=== PATIENT | male | born 1955 | race Caucasian/White ===

== ENCOUNTER 2018-06-16 15:30 | Outpatient (RCR) | payer OTHER, SELFPAY ==
--- NOTE | 2018-05-19 07:56 | AT_ITS ---
05/19/18 SUBJECTIVE: Meir states that he is encourage to get stronger with use of aquatics, he is not complaining of any pain increase since his evaluation. OBJECTIVE: ATx2- See aquatic therapy flow sheet. Pt received skilled cueing for aquatic intervention demanding both upper and LE strengthening efforts and intrinsic core stabilization. He is cued throughout for proper glutes, TrA and lower trap activation throughout to encourage proper movement patterns as well as for intrinsic stability. He exits the pool feeling fatigued due to muscle use. Total Time: 60 minutes Direct Time: 30 minutes Otherwise doing warm up and cool down activities with minimal supervision.
--- NOTE | 2018-06-02 10:11 | AT_ITS ---
06/02/18 ATx1 See flow sheet, skilled cueing for proper intrinsic core activation while utilizing upper and LE dynamic movements for general strengthening as well as to challenge intrinsic core stability ending with deep water decompression activities for pain relief. Total Time 45 minutes Direct 50 minutes Able to perform the majority of the program with minimal supervision otherwise able to complete tasks as directed with minimal supervision. Primarily requires skilled cueing for initiation of activity as well as intrinsic activation.
--- NOTE | 2018-06-09 08:51 | PTTR_ITS ---
DATE: 06/09/18 SUBJECTIVE: Arturo reports that he was pretty sore after last aquatic therapy session. OBJECTIVE: * [X] Aquatic Therapy - (50266 x1): Patient completed a therapeutic exercise program in an aquatic setting for core stabilization and general strengthening with decompression for pain relief, as per flow sheet. Patient tolerated a slight progression in his program today, modifications made to reps are noted on flow sheet. Patient required cuing for core activation and appropriate posture throughout session. Patient ends with deep water biking and traction. Direct treatment time: 20 minutes Total treatment time: 40 minutes
--- NOTE | 2018-06-16 10:46 | PTDS_ITS ---
Date: 06/16/18 Referring: Dr. Stahl- [facility] Rheumatology Diagnosis: RA PT dx: Multiple arthralgias due to RA Tx Dates: 05/11/18- 06/16/18 Subjective: History of Present Illness: Meir states that he has been feeling really good. He has had multiple changes including addition of aquatic therapy, starting lyrica and having his spinal stimulator recently adjusted. He states that the combination of these seem to be controlling his pain quite well and he is feeling positive at where he is at with his program. He is comfortable with his aquatic program and would like to transition into an aquatic management for the long-term. He is going to get a pool membership and hopes to begin this next week. Objective: Posture: Pt continues to demonstrate slightly stooped posturing with slight trunk flexion (B) genu varus. Gait: Non antalgic non ataxic with no assistive device. ROM: Hip motion allows 110* flexion on the (R) limited by ostomy bag, 120* (L) . Hamstring allows 60* (B) and knee motion is grossly WNL. Treatment: Todays session consisted of review of pt's HEP and he was provided with handouts for (I) completion of his aquatic exercise program and demonstrates an understanding of these. Treatment Time: 15 minutes Assessment: Pt is a 63 year old male who has been participating in PT intervention for management of multiple arthralgias related to RA. He has completed an aquatic therapy program and is now ready to transition into a fully (I) management of chronic pain. Pt is comfortable transitioning to the (I ) program and is appropriate to D/C from PT services. ST. 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
== END 2018-06-17 23:59 | disposition home or self-care (01) ==
LOC: PT 15:30
PROVIDERS: PCP Nurse Practitioner Family; Referring Provider Internal Medicine Rheumatology; Visit Provider Internal Medicine Rheumatology
DX: M79.1 Myalgia (principal); M06.9 Rheumatoid arthritis, unspecified
CPT/HCPCS: 97113; 97530

== ENCOUNTER 2019-01-26 01:00 | Outpatient (CLI) | payer OTHER, SELFPAY ==
[2019-01-26 09:54] LABS: Abs Immature Grans 0.01 k/cumm (0.0-0.09); Absolute Basophil Count 0.04 k/cumm (0.0-0.2); Absolute Eosinophil Count 0.19 k/cumm (0.0-0.7); Absolute Lymphocyte Count 2.33 k/cumm (1.2-3.4); Absolute Monocyte Count 0.76 k/cumm (0.11-0.7); Basophils % 0.6; Eosinophils % 2.7; HGB 14.4 g/dL (13.5-17.5); Immature Grans % 0.1; Lymphocytes % 32.7; Mean Corp. HGB Concentration 34.3 g/dL (32.0-36.0); Mean Corpuscular Hemoglobin 34.2 pg (27.0-33.0); Mean Corpuscular Volume 99.8 fL (80-95); Mean Platelet Volume 8.8 fL (8.0-11.0); Monocytes % 10.7; Neutrophils % 53.2; Platelet Count 331 x1000/uL (130-400); RBC 4.21 m/cumm (4.50-6.00); RBC Distribution Width 12.5 % (11.8-14.1); White Blood Cell Count 7.13 k/cumm (4.4-10.8)
[2019-01-26 10:55] LABS: ALT 29 U/L (12-78); AST 18 U/L (15-37); Albumin 4.2 g/dL (3.4-5.0); Alkaline Phosphatase 74 U/L (46-116); Anion Gap 11.9 mmol/L (3-11); BUN 21 mg/dL (7-18); Bilirubin, Total 0.4 mg/dL (0.2-1.0); CO2 24.1 mmol/L (21.0-32.0); CREATININE 0.84 mg/dL (0.70-1.30); Calcium 8.9 mg/dL (8.5-10.1); Chloride 103 mmol/L (98-107); Glucose 104 mg/dL (70-100); Potassium 4.1 mmol/L (3.5-5.1); Sodium 139 mmol/L (136-145)
[2019-01-26 11:11] LABS: Vitamin B12 290 pg/mL (193-986)
[2019-01-26 11:15] LABS: Folate > 20.0 ng/mL (8.6-20.0)
[2019-01-26 11:21] LABS: Vitamin D 25 Total 10.3 ng/ml (30-100)
[2019-01-27 11:23] LABS: Hepatitis B Surface Ag Negative (NEGAT)
[2019-01-27 11:48] LABS: HBs Antibody, Quant <3.1 mIU/mL; Hep B Core Antibody Negative (NEGAT); Hepatitis B Surface Ab Negative
[2019-01-30 13:35] LABS: TB Interpretation Negative (NEGAT)
== END 2019-01-26 01:20 ==
PROVIDERS: PCP Nurse Practitioner Family; Visit Provider Internal Medicine Rheumatology
DX: M19.90 Unspecified osteoarthritis, unspecified site (principal); Z79.899 Other long term (current) drug therapy; Z11.59 Encounter for screening for other viral diseases; M06.9 Rheumatoid arthritis, unspecified; D75.89 Other specified diseases of blood and blood-forming organs
CPT/HCPCS: 36415; 80053; 82306; 86704; 86706; 87340; 82607; 82746; 85025; 86480

== ENCOUNTER 2019-02-20 14:35 | Outpatient (REF) | payer OTHER, SELFPAY ==
[2019-02-20 15:56] LABS: Bilirubin Negative (Negative); Blood Negative (Negative); Clarity Clear; Glucose Negative (Negative); Ketones Negative (Negative); Leukocyte Esterase Negative (Negative); Nitrite Negative (Negative); Specific Gravity 1.025 (1.005-1.025); Urobilinogen 0.2 EU/dL (Up TO 0.2); pH 5.5 (5-8)
== END 2019-02-20 14:55 ==
LOC: LBN 14:35
PROVIDERS: PCP Nurse Practitioner Family; Visit Provider Nurse Practitioner Family
DX: I10 Essential (primary) hypertension (principal)
CPT/HCPCS: 81003

== ENCOUNTER 2019-03-08 00:39 | Outpatient (CLI) | payer OTHER, SELFPAY ==
--- NOTE | 2019-03-08 09:30 | MERGEMPI_ITS ---
*[facility]* *[facility]* [address] [place] [address] Myocardial Perfusion Imaging - SPECT Regadenoson Date of study: 03/08/2019 *PATIENT PRESENTATION* Height: 168.9cm (66.5in) Blood Pressure: Weight: 75kg (165lb) BSA: 1.89m^2 Referring physician: Luke Singh Ordering physician: Nabila Rodriguez Impressions: No reversible ischemia. Summary: 1. Myocardial perfusion imaging: The left ventricle is mildly dilated. There is a small sized, moderately intense, fixed defect involving the apical wall(s). This suggests small myocardial infarction vs. imaging artifact. 2. The calculated left ventricular ejection fraction after stress: 47%, visually 50-55%. LV global systolic function is low normal. No left ventricular regional motion abnormality. 3. Stress ECG conclusions: The stress ECG is indeterminate due to baseline IVCD/ atypical left bundle branch block. 4. Stress: Stress-induced atypical chest pain. Indication: I44.4. History: REASON FOR TESTING: PATIENT HAVING STRESS TEST TODAY FOR FURTHER RISK STRATIFICATION. ON 02/20/19 EKG SHOWED POSSIBLE LEFT ANTERIOR FASCICULAR BLOCK. OF NOTE NO PREVIOUS EKG AVAILABLE FOR COMPARISON. PATIENT DENIES ANY CARDIAC SIGNS OR SYMPTOMS WITH ACTIVITY AND REST. PATIENT DENIES CHEST PAIN UPON ARRIVAL FOR TESTING TODAY. SIGNIFICANT PAST MEDICAL HISTORY: CHRONIC LOW BACK PAIN WITH RIGHT SIDED SCIATICA. SMOKING STATUS: QUIT 1974. SMOKED FOR 4 YEARS. 1/2 PPD. EXERCISE ROUTINE: PATIENT WALKS 5 MILES PER DAY ON MOST DAYS. Risk factors: Hypertension. Cholesterol: 167mg/dl. HDL: 75mg/dl. LDL: 71mg/dl. Triglycerides: 71mg/dl. ALLERGIES: MINOCYCLINE, KETAMINE, DILTIAZEM, FLUOXETINE, PENICILLIN, TETRACYCLINE, ASPIRIN, MORPHINE. MEDICATIONS: TWO LIDOCAINE 5% TOPICAL PATCHES DAILY, LISINOPRIL 10 MG DAILY, METHOTREXATE SODIUM 25 MG WEEKLY (WEDNESDAYS), MULTIVITAMIN DAILY, PANTOPRAZOLE 40 MG DAILY, TAMSULOSIN 0.4 MG DAILY, TRAMADOL 50 MG PRN, XELJANZ XR 11 MG DAILY, ACETAMINOPHEN 1000 MG PRN, HUMIRA 40 MG SC EVERY OTHER WEEK, CALCIUM CARBONATE 500 MG DAILY, VITAMIN D 2000 UNITS DAILY, VITAMIN B 12 100 MCG IM INJECTION MONTHLY, VOLTAREN 1% TOPICAL GEL PRN, LOMOTIL 10 MG AM--5 MG PM--5MG HS, FOLIC ACID 1 MG DAILY. Imaging Technique: Protocol: Regadenoson. Acquisition: Gated SPECT; 1 day - rest/stress. The patient was imaged in the supine position. Attenuation correction used. Isotope administration: - Rest. Tc[99m]-sestamibi. Dose: 10.5mCi. Injection time: 09:45 AM. Injection to stress time: 00:45. - Stress. Tc[99m]-sestamibi. Dose: 33mCi. Injection time: 01:10 PM. 1-2 min before end of exercise Baseline ECG: SINUS BRADYCARDIA. HR 51 BPM. LBBB. Stress protocol: +--------+--+ + + !Stage !HR!BP (mmHg) !Comments ! +--------+--+ + + !Baseline!51!120/58 (79)! ! +--------+--+ + + !1 min !52!122/64 (83)!Inject Regadenoson.! +--------+--+ + + !3 min !62!100/48 (65)! ! +--------+--+ + + !6 min !57!100/52 (68)! ! +--------+--+ + + * Stress results: LEXISCAN STRESS TEST ENDED IN 6 MINUTES 50 SECONDS. NORMAL HEART RATE AND BLOOD PRESSURE RESPONSE TO LEXISCAN INJECTION. NO ECTOPY. CHEST HEAVYNESS 4/10 AT 1 MINUTE POST LEXISCAN INJECTION. CHEST HEAVYNESS 1/10 AT 3 MINUTE POST LEXISCAN INJECTION. CHEST HEAVYNESS 0/10 AT 6 MINUTE POST LEXISCAN INJECTION. NO SIGNIFICANT ST SEGMENT CHANGES. The rate-pressure product for the peak heart rate and blood pressure was 6344mm Hg/min. Stress-induced atypical chest pain. Stress ECG: The stress ECG is indeterminate due to baseline IVCD/ atypical left bundle branch block. Myocardial perfusion: Imaging information: gated. The left ventricle is mildly dilated. There is a small sized, moderately intense, fixed defect involving the apical wall(s). This suggests small myocardial infarction vs. imaging artifact. Ventricular Function (Wall Motion): The calculated left ventricular ejection fraction after stress: 47%, visually 50-55%. LV global systolic function is low normal. No left ventricular regional motion abnormality. Study data: Luke Singh MD supervised and was readily available during the procedure. This study was interpreted by [facility]. Study status: Routine. Consent: The risks, benefits, and alternatives to the procedure were explained to the patient and informed consent was obtained. Procedure: Initial setup. A baseline ECG was recorded. Surface ECG leads and manual cuff blood pressure measurements were monitored. Heart sounds: Normal. Lung sounds: Normal. Regadenoson stress test. Stress testing was performed, with regadenoson by intravenous bolus, for a total dose of 0.4mgover 10.00sec, followed by a 5ml saline flush. The infusion was terminated due to per protocol. Study completion: All catheters inserted during the procedure were removed. The patient tolerated the procedure well and was discharged from the lab. Discharge: The patient left the laboratory in stable condition. Birthdate: Patient birthdate: 1955. Sex: Gender: male. Study date: Study date: 03/08/2019. Study time: 00:01 AM. Signature Documentation: - The imaging portion of this study was interpreted by [employer] Install[employer] Technician Luke Singh MD. - The Stress ECG portion of this study was interpreted by Luke Singh MD. Electronically signed by Luke Singh 03/08/2019 17:05
[2019-03-08] MEDS: Regadenoson 0.4 MG/5 ML SYR IVP (12:30)
== END 2019-03-08 00:59 ==
PROVIDERS: PCP Nurse Practitioner Family; Visit Provider Nurse Practitioner Family
DX: I44.4 Left anterior fascicular block (principal); I10 Essential (primary) hypertension; Z87.891 Personal history of nicotine dependence
CPT/HCPCS: 78452; 93017; J2785

== ENCOUNTER 2019-05-15 09:36 | Outpatient (CLI) | payer MEDICARE, OTHER, SELFPAY ==
[2019-05-15 11:59] LABS: Anion Gap 12.2 mmol/L (3-11); BUN 19 mg/dL (7-18); CO2 21.8 mmol/L (21.0-32.0); CREATININE 0.83 mg/dL (0.70-1.30); Calcium 8.8 mg/dL (8.5-10.1); Calculated LDL 45 mg/dL; Chloride 101 mmol/L (98-107); Cholesterol 160 mg/dL (50-200); Glucose 92 mg/dL (70-100); HDL Cholesterol 100 mg/dL (40-60); Potassium 4.3 mmol/L (3.5-5.1); Sodium 135 mmol/L (136-145); TSH (W/Ref FT4) 2.52 uIU/mL (0.36-3.74); Triglyceride 78 mg/dL (30-150)
== END 2019-05-15 09:56 ==
PROVIDERS: PCP Nurse Practitioner Family; Visit Provider Nurse Practitioner Family
DX: I10 Essential (primary) hypertension (principal); E78.5 Hyperlipidemia, unspecified
CPT/HCPCS: 36415; 80048; 80061; 83721; 84443

== ENCOUNTER 2019-08-04 09:16 | Outpatient (REF) | payer MEDICARE, OTHER, SELFPAY ==
[2019-08-09 13:09] LABS: O-desmethyltramadol 320 ng/mL (Cutoff:25); Tramadol 169 ng/mL (Cutoff:25)
== END 2019-08-04 09:36 ==
LOC: LBN 09:16
PROVIDERS: PCP Nurse Practitioner Family; Visit Provider Nurse Practitioner Family
DX: Z51.81 Encounter for therapeutic drug level monitoring (principal); G89.29 Other chronic pain
CPT/HCPCS: 80373

== ENCOUNTER 2019-10-23 09:14 | Outpatient (CLI) | payer MEDICARE, OTHER, SELFPAY ==
[2019-10-23 09:46] LABS: Abs Immature Grans 0.03 k/cumm (0.0-0.09); Absolute Basophil Count 0.04 k/cumm (0.0-0.2); Absolute Eosinophil Count 0.15 k/cumm (0.0-0.7); Absolute Lymphocyte Count 2.41 k/cumm (1.2-3.4); Basophils % 0.3; Eosinophils % 1.1; HCT 41.9 % (40.0-50.0); HGB 14.4 g/dL (13.5-17.5); Immature Grans % 0.2 %; Lymphocytes % 18.1; Mean Corp. HGB Concentration 34.4 g/dL (32.0-36.0); Mean Corpuscular Hemoglobin 34.1 pg (27.0-33.0); Mean Corpuscular Volume 99.3 fL (80-95); Mean Platelet Volume 8.7 fL (8.0-11.0); Neutrophils % 69.3; Platelet Count 314 x1000/uL (130-400); RBC 4.22 m/cumm (4.50-6.00); RBC Distribution Width 12.5 % (11.8-14.1); White Blood Cell Count 13.31 k/cumm (4.4-10.8)
[2019-10-23 09:48] LABS: Absolute Monocyte Count 1.46 k/cumm (0.11-0.7); Absolute Neutrophil Count 9.22 k/cumm (1.2-6.7)
[2019-10-23 11:22] LABS: ALT 25 U/L (16-63); AST 19 U/L (15-37); Albumin 4.2 g/dL (3.4-5.0); Alkaline Phosphatase 67 U/L (46-116); Anion Gap 8.9 mmol/L (3-11); BUN 12 mg/dL (7-18); Bilirubin, Total 0.7 mg/dL (0.2-1.0); CO2 30.1 mmol/L (21.0-32.0); CREATININE 0.72 mg/dL (0.70-1.30); Calcium 9.3 mg/dL (8.5-10.1); Chloride 101 mmol/L (98-107); Glucose 86 mg/dL (74-106); Potassium 4.7 mmol/L (3.5-5.1); Sodium 140 mmol/L (136-145); Total Protein 7.9 g/dL (6.4-8.2)
== END 2019-10-23 09:34 ==
PROVIDERS: PCP Nurse Practitioner Family; Visit Provider Internal Medicine Rheumatology
DX: M19.90 Unspecified osteoarthritis, unspecified site (principal); Z79.899 Other long term (current) drug therapy
CPT/HCPCS: 36415; 80053; 85025

== ENCOUNTER 2020-04-05 13:55 | Outpatient (REF) | payer MEDICARE, SELFPAY ==
[2020-04-05 18:19] LABS: Abs Immature Grans 0.02 k/cumm (0.0-0.09); Absolute Basophil Count 0.02 k/cumm (0.0-0.2); Absolute Eosinophil Count 0.22 k/cumm (0.0-0.7); Absolute Lymphocyte Count 2.31 k/cumm (1.2-3.4); Absolute Neutrophil Count 4.62 k/cumm (1.2-6.7); Basophils % 0.3; Eosinophils % 2.8; HCT 39.9 % (40.0-50.0); HGB 13.7 g/dL (13.5-17.5); Immature Grans % 0.3 %; Lymphocytes % 28.9; Mean Corp. HGB Concentration 34.3 g/dL (32.0-36.0); Mean Corpuscular Hemoglobin 33.3 pg (27.0-33.0); Mean Corpuscular Volume 96.8 fL (80-95); Neutrophils % 57.7; Platelet Count 308 x1000/uL (130-400); RBC 4.12 m/cumm (4.50-6.00); RBC Distribution Width 12.2 % (11.8-14.1); White Blood Cell Count 7.99 k/cumm (4.4-10.8)
[2020-04-05 18:40] LABS: Hemoglobin A1C 5.6 % (3.8-5.6)
[2020-04-05 19:00] LABS: ALT 33 U/L (16-63); AST 28 U/L (15-37); Albumin 4.2 g/dL (3.4-5.0); Alkaline Phosphatase 64 U/L (46-116); BUN 19 mg/dL (7-18); Bilirubin, Total 0.6 mg/dL (0.2-1.0); Calcium 8.9 mg/dL (8.5-10.1); Calculated LDL 36 mg/dL (<100); Chloride 100 mmol/L (98-107); Cholesterol 143 mg/dL (<200); Glucose 87 mg/dL (74-106); HDL Cholesterol 97 mg/dL (40-60); Potassium 4.2 mmol/L (3.5-5.1); Sodium 135 mmol/L (136-145); Triglyceride 50 mg/dL (<150)
[2020-04-05 19:06] LABS: Vitamin B12 > 2000 pg/mL (193-986)
[2020-04-08 06:52] LABS: Vitamin D 25 Total 11.1 ng/ml (30-100)
== END 2020-04-05 14:15 ==
LOC: LBN 13:55
PROVIDERS: PCP Nurse Practitioner Family; Visit Provider Nurse Practitioner Family
DX: E78.5 Hyperlipidemia, unspecified (principal); E55.9 Vitamin D deficiency, unspecified; E53.8 Deficiency of other specified B group vitamins; I10 Essential (primary) hypertension; R73.01 Impaired fasting glucose; Z51.81 Encounter for therapeutic drug level monitoring
CPT/HCPCS: 80053; 80061; 82306; 82607; 83036; 85025

== ENCOUNTER 2020-07-02 03:45 | Outpatient (CLI) | payer MEDICARE, SELFPAY ==
[2020-07-02 14:47] LABS: Abs Immature Grans 0.02 10^3/uL (0.0-0.06); Absolute Basophil Count 0.02 10^3/uL (0.0-0.2); Absolute Eosinophil Count 0.09 10^3/uL (0.0-0.7); Absolute Monocyte Count 0.75 10^3/uL (0.1-0.8); Absolute Neutrophil Count 4.77 10^3/uL (1.2-6.7); Basophils % 0.3; Eosinophils % 1.2; HCT 40.7 % (40.0-50.0); HGB 13.8 g/dL (13.5-17.5); Immature Grans % 0.3; Lymphocytes % 26.1; MCH 33.9 pg (27.0-33.0); MCHC 33.9 % (32.0-36.0); MPV 9.4 fL (8.0-11.0); Monocytes % 9.8; Neutrophils % 62.3; Nucleated RBC 0 %; Platelet Count 277 10^3/uL (130-400); RBC 4.07 10^6/uL (4.36-5.78); RDW 12.5 % (11.8-14.1); RDW-SD 46.2 fL; WBC 7.65 10^3/uL (4.4-10.8)
[2020-07-02 15:16] LABS: ALT 35 U/L (16-63); AST 26 U/L (15-37); Albumin 4.1 g/dL (3.4-5.0); Alkaline Phosphatase 60 U/L (46-116); Anion Gap 6.2 mmol/L (3-11); BUN 13 mg/dL (7-18); Bilirubin, Total 0.6 mg/dL (0.2-1.0); CO2 27.8 mmol/L (21.0-32.0); CREATININE 1.01 mg/dL (0.70-1.30); Chloride 103 mmol/L (98-107); Glucose 92 mg/dL (74-106); Potassium 4.1 mmol/L (3.5-5.1); Sodium 137 mmol/L (136-145); Total Protein 7.3 g/dL (6.4-8.2)
[2020-07-02 15:25] LABS: TSH (W/Ref FT4) 1.94 uIU/mL (0.36-3.74)
== END 2020-07-02 04:05 ==
PROVIDERS: Internal Medicine Rheumatology; PCP Nurse Practitioner Family; Visit Provider Nurse Practitioner Family
DX: E03.9 Hypothyroidism, unspecified (principal); R68.89 Other general symptoms and signs; M19.90 Unspecified osteoarthritis, unspecified site; Z79.899 Other long term (current) drug therapy
CPT/HCPCS: 36415; 80053; 84443; 85025

== ENCOUNTER 2020-08-22 15:55 | Inpatient (IN) | payer MEDICARE, BC, SELFPAY ==
[2020-08-22] VITALS (30 sets, daily range): BP systolic 95–152; BP diastolic 45–73; PULSE 58–76; RESP 18–24; TEMP 36.1–37.1; O2SAT 92–100
--- NOTE | 2020-08-22 | DI.RAD_ITS ---
EXAM: XR PORTABLE CHEST AP POST LINE CLINICAL HISTORY: NG Placement TECHNIQUE: 2D digital imaging was performed. COMPARISON: CR,XR XR PORTABLE CHEST AP POST LINE from 08/22/2020 FINDINGS: MEDIASTINUM: Normal. HEART: Normal. PULMONARY VASCULATURE: Normal. LUNGS: Clear. PLEURAL SPACE: No pleural effusion or pneumothorax. The lucency in the right lung apex appears repres ent a skin fold. BONE:Within normal limits for the patient's age. OTHER FINDINGS:Nasogastric tube is been advanced. The tip is seen within the stomach. There is a ne rve stimulator device. IMPRESSION: 1. Interval advancement of the nasogastric tube. The tip is now seen in the fundus of the stomach. 2. No evidence of a pneumothorax. The lucency in the right lung apex appears represent a skin fold w hich extends beyond the rib margins. DATA REPOSITORY: RADIATION DOSE DELIVERED:
[2020-08-22] MEDS: Normal Saline Flush 10 ML SYR IVP ×3 (16:00→22:00)
[2020-08-22] MEDS: Lactated Ringers 1,000 ML 125 ML IV ×2 (16:00→20:33)
[2020-08-22] MEDS: HYDROmorphone 2 MG/ML VIAL 1 MG IVP ×5 (16:10→21:59)
[2020-08-22 16:14] LABS: Abs Immature Grans 0.03 10^3/uL (0.0-0.06); Absolute Basophil Count 0.04 10^3/uL (0.0-0.2); Absolute Eosinophil Count 0.05 10^3/uL (0.0-0.7); Absolute Lymphocyte Count 2.55 10^3/uL (1.2-3.4); Absolute Neutrophil Count 9.15 10^3/uL (1.2-6.7); Basophils % 0.3; Eosinophils % 0.4; HCT 43.3 % (40.0-50.0); HGB 14.9 g/dL (13.5-17.5); Immature Grans % 0.2; Lymphocytes % 19.8; MCH 33.5 pg (27.0-33.0); MCHC 34.4 % (32.0-36.0); MCV 97.3 fL (80-95); MPV 9.2 fL (8.0-11.0); Monocytes % 8.2; Neutrophils % 71.1; Nucleated RBC 0 %; Platelet Count 327 10^3/uL (130-400); RBC 4.45 10^6/uL (4.36-5.78); RDW 11.9 % (11.8-14.1); RDW-SD 42.8 fL; WBC 12.87 10^3/uL (4.4-10.8)
[2020-08-22 16:15] LABS: Absolute Monocyte Count 1.06 10^3/uL (0.1-0.8)
--- NOTE | 2020-08-22 16:30 | DI.CT_ITS ---
EXAM: CT ABDOMEN PELVIS W CLINICAL HISTORY: abd pain, no ostomy output, crohns TECHNIQUE: Imaging Protocol: Axial computed tomography images with coronal and sagittal reformatted images were created and reviewed CONTRAST MATERIAL: Intravenous: Omnipaque 350 Contrast volume:100 mL Oral: No COMPARISON: CT ABD PELVIS WITH CONTRAST from 11/28/2015 CR,XR XR PORTABLE CHEST AP POST LINE from 08/22/2020 FINDINGS: ABDOMEN: Lung Bases: Normal where visualized. Liver: Normal density. No measurable mass. Portal, Superior Mesenteric, and Splenic Veins: Unremarkable. Gallbladder and Biliary Tract: No radiodense calculus or dilation. There is unchanged focal thickenin g seen at the fundus of the gallbladder. This may represent focal adenomyomatosis. If there is cont inued concern, a gallbladder ultrasound may be obtained. Pancreas: Normal density, no abnormal calcifications or inflammatory process. Spleen: Normal. Adrenals: No masses seen. Kidneys: Normal size, contour and axis. No radiodense stones or obstructive uropathy. No masses seen. Abdominal Aorta: Abdominal portion non-dilated. Bowel: The patient is status post colectomy within right lower quadrant ileostomy. There is again se en dilated loops of small bowel with a transition in the right anterior abdomen. The location of the transition and degree of dilatation of the small bowel has a similar appearance compared to the prio r examination. No masses seen at the transition. This likely is secondary to postoperative adhesion s. No pneumatosis or portal venous gas is seen. There is mild wall thickening seen in the normal ca liber distal small bowel. This may reflect an enteritis. Peritoneal Cavity: There is a trace amount of ascites around the liver. Lymph Nodes: Within normal limits. Bones: Degenerative changes. Soft Tissues: Unremarkable. PELVIS: Bladder: Symmetric distention, no gross wall thickening. Reproductive Organs: Unremarkable as visualized. Lymph Nodes: Within normal limits. Bones: Degenerative changes. A nerve stimulator device is again noted. IMPRESSION: 1. Stable dilated loops of small bowel with a transition in the right abdomen. The findings are sugg estive of a chronic small bowel obstruction. The likely cause is postoperative adhesions. 2. Mild wall thickening seen in loops of small bowel suggesting a mild enteritis. Ischemic enteritis cannot be excluded. RADIATION DOSE DELIVERED: 653.66mGy.cm Total DLP DATA REPOSITORY: All CT scans at this facility are submitted to the National Radiology Data Registry (NRDR) Dose Index Registry (DIR) with the [employer] (A[employer]). RADIATION OPTIMIZATION: All CT scans at this facility use at least one of these dose optimization te chniques: automated exposure control; mA and/or kV adjustment per patient size (includes targeted exa ms where dose is matched to clinical indication); or iterative reconstruction.
--- NOTE | 2020-08-22 16:36 | ED.GENADUL_ITS ---
Discharge Plan Disposition Patient Disposition: [facility] INPATIENT Condition: Serious Discharge Details Clinical Impression: Small bowel obstruction Admit Date/Time: 08/22/20 18:47 Admit Provider: Bisi Haque Attending Provider: Bisi Haque Primary Care Provider: Nabila Rodriguez ED Provider: Sergio Recinos Discharge Data Discharge Date/Time-TO BE ENTERED AT DEPARTURE: 08/22/20 19:44 Medical Decision Making 1640??65-year-old male with history of Crohn's disease status post bowel resection and: Ostomy here with diffuse abdominal pain and decreased ostomy output. Concern for acute surgical process including bowel obstruction. Plan to obtain CT of abdomen pelvis. Patient was given Dilaudid 1 mg IV for pain. --CT the abdomen pelvis was interpreted by radiology: IMPRESSION: 1. Findings of chronic mid-distal small bowel obstruction associated with postoperative adhesions, as described above. There is some chronic mild inflammatory change of the dilated small bowel loops proximal to the transition point suggesting regions of mild enteritis. Cannot exclude ischemic enteritis on this exam. Recommend clinical correlation. 2. Stable focal region of mild segmental wall thickening of the gallbladder fundus, suggesting adenomyomatosis. Further evaluation with right upper quadrant ultrasound could be obtained as clinically indicated. Labs reviewed and mild leukocytosis noted. Patient notes improvement in pain after initial dose of Dilaudid. Pain now returned on reassessment. An additional Dilaudid 1 mg IV dose given. I called and spoke with Dr. Haque, on-call general surgery, discussed ED presentation and course. She recommends NG tube be placed and will admit the patient to her service. 2003 -- Patient continued have pain in the ED. An additional Dilaudid 1 mg IV given and Toradol 15 mg IV given. Chest x-ray that was performed post NG tube interpreted by radiology: IMPRESSION: 1. Tip of nasogastric tube not visualized past the level of the midesophagus. Recommend advancement. 2. Cannot exclude small right apical pneumothorax, as described above. Recommend upright chest x-ray for further evaluation. Patient already admitted to the floor. I called and spoke with Dr. Haque and updated her regarding chest x-ray result. We also discussed consideration for ischemic process given radiology interpretation noting cannot exclude ischemic enteritis and his persistent severe pain with elevated anion gap. She will be contacting [facility] floor and will address NG, repeat x-ray and also further work-up including lactate. HPI General Mode of arrival: ambulatory . Date/Time Provider Initiated Documentation: 08/22/20 16:03 . Limitations to Documentation: no limitations . Information obtained by: patient . HPI Narrative: 65-year-old male with multiple medical problems including history of Crohn's disease status post multiple abdominal surgeries including partial colectomy and colostomy, here with concern for bowel obstruction. Patient has chief complaint of abdominal pain. He notes his last output from his ostomy was around 4 AM. Pain is constant and worsening over the course of the day. He has associated nausea and anorexia. Related Data Home Medications Medication Instructions Recorded Confirmed acetaminophen [Acetaminophen Extra 2 tab PO Q8H PRN 12/21/12 08/22/20 Strength] calcium carbonate 500 mg PO DAILY 12/21/12 08/22/20 multivitamin [Multiple Vitamins] 1 ea PO DAILY 12/21/12 08/22/20 adalimumab 40 mg/0.8 mL 40 mg SUBCUT .EVERY OTHER WEEK 12/09/18 08/22/20 subcutaneous pen kit tamsulosin 0.4 mg capsule 0.4 mg PO DAILY #90 tab-cap 06/21/19 08/22/20 cholecalciferol (vitamin D3) 50 4,000 unit PO DAILY #180 tab-cap 01/19/20 08/22/20 mcg (2,000 unit) tablet diclofenac sodium 1 % topical gel 2 gm TOPICAL QID PRN #3 tube 01/19/20 08/22/20 lidocaine 5 % topical patch 2 patch TP DAILY #180 each 01/19/20 08/22/20 diphenoxylate-atropine 2.5 3 tab PO TID PRN #810 tab-cap 04/05/20 08/22/20 mg-0.025 mg tablet lisinopril 10 mg tablet 10 mg PO DAILY #90 tab-cap 04/05/20 08/22/20 colostomy bags #2 each 06/19/20 08/22/20 ostomy supplies #2 each 06/19/20 08/22/20 ostomy supplies #50 each 06/19/20 08/22/20 tofacitinib 11 mg tablet,extended 11 mg PO Q24H tab 06/28/20 08/22/20 release 24 hr tramadol 50 mg tablet 50 mg PO TID PRN #50 tab-cap MDD 06/28/20 08/22/20 150 mg atorvastatin 40 mg tablet 40 mg PO DAILY #90 tab-cap 07/25/20 08/22/20 pantoprazole 20 mg tablet,delayed 40 mg PO DAILY #180 tab-cap 07/25/20 08/22/20 release cyanocobalamin (vitamin B-12) 1,000 mcg IM MONTHLY #3 vial 08/12/20 08/22/20 1,000 mcg/mL injection solution ostomy supplies #28.3 g 08/15/20 08/22/20 insulin syringes (disposable) 1 mL #12 ea 08/16/20 08/22/20 Previous Rx's Medication Instructions Recorded tamsulosin 0.4 mg capsule 0.4 mg PO DAILY #90 tab-cap 06/21/19 cholecalciferol (vitamin D3) 50 4,000 unit PO DAILY #180 tab-cap 01/19/20 mcg (2,000 unit) tablet diclofenac sodium 1 % topical gel 2 gm TOPICAL QID PRN #3 tube 01/19/20 lidocaine 5 % topical patch 2 patch TP DAILY #180 each 01/19/20 diphenoxylate-atropine 2.5 3 tab PO TID PRN #810 tab-cap 04/05/20 mg-0.025 mg tablet lisinopril 10 mg tablet 10 mg PO DAILY #90 tab-cap 04/05/20 colostomy bags #2 each 06/19/20 ostomy supplies #2 each 06/19/20 ostomy supplies #50 each 06/19/20 tramadol 50 mg tablet 50 mg PO TID PRN #50 tab-cap MDD 06/28/20 150 mg atorvastatin 40 mg tablet 40 mg PO DAILY #90 tab-cap 07/25/20 pantoprazole 20 mg tablet,delayed 40 mg PO DAILY #180 tab-cap 07/25/20 release cyanocobalamin (vitamin B-12) 1,000 mcg IM MONTHLY #3 vial 08/12/20 1,000 mcg/mL injection solution ostomy supplies #28.3 g 08/15/20 insulin syringes (disposable) 1 mL #12 ea 08/16/20 Allergies Allergy/AdvReac Type Severity Reaction Status Date / Time minocycline [Minocycline] Allergy Severe PER [facility] [place] Verified 08/22/20 16:02 RECORDS ADDED 01/06/13 ketamine Allergy Unknown Pt Verified 08/22/20 16:02 reported like an out of body experience diltiazem HCl [From Cardizem] Allergy Verified 08/22/20 16:02 fluoxetine HCl [From Prozac] Allergy Verified 08/22/20 16:02 Penicillins Allergy itching, Verified 08/22/20 16:02 swelling of hands tetracycline [Tetracycline] Allergy tongue Verified 08/22/20 16:02 swelling aspirin AdvReac unable to Verified 08/22/20 16:02 take high dose d/t nose bleeds morphine AdvReac hallucinate Verified 08/22/20 16:02 General Stated Complaint: Abd Prob CACHORRO: 2 Review of Systems All systems reviewed & are unremarkable except as noted in HPI and below Respiratory Respiratory: Denies cough Gastrointestinal Gastrointestinal: Reports as per HPI and Reports abdominal pain [facility] Medical History Bowel obstruction (11/02/14) BPH without urinary obstruction (06/16/13) Chronic daily headache Chronic low back pain with right-sided sciatica (05/25/18) Chronic pain (11/02/11) 11/27 low risk; neg comorbid psych. Crohn's disease with complication (11/02/11) Dr. Heaton [facility] GI S/p 4 SB resections with an ileostomy (placed 2002) Ongoing intermittent SBO relieved with flusing red rubber catheter 11/28/15 recurrent SBO [facility] [place] Degeneration of lumbar intervertebral disc (03/29/13) recurrent L4-[address] Chowdary [facility] [place] spine clinic; spondolysis lumbar RF Rx [facility] [place] 10/2012; 12/28/14 thoracic laminectomy and spinal cord stimulator Erectile dysfunction Headache High serum high density lipoprotein (HDL) (04/26/18) 03/2020: good response to statin therapy, continue History of OK (myocardial infarction) 03/08/2019 nuclear stress test (carried out for new LAFB): no reversible ischemia, however, a small sized, moderately intense, fixed defect involving the apical wall(s). This suggests small myocardial infarction vs. imaging artifact. --> discussed statin and aspirin with pt --> pt will think about statin and cannot take aspirin due to development of many stomach ulcers on baby aspirin in the past IFG (impaired fasting glucose) (04/26/18) Multiple gastric ulcers (12/21/14) 03/28/2015 EGD: normal OA (osteoarthritis) Osteopenia (12/20/13) FRAX risk: 6.8%/1.1% osteop/hip; VitD insuff DEXA 08/25/16 WNL Rheumatoid arthritis [facility] Rheumatology Vitamin B 12 deficiency Vitamin D deficiency Surgical History thoracic laminectomy/spinal cord stimulator (12/28/14) Family History Mother , COPD COPD (chronic obstructive pulmonary disease) Father COPD (chronic obstructive pulmonary disease) Dementia Social History Smoking/Tobacco Use Status: Former Tobacco Use Smoking risk assessment performed?: Yes Alcohol Intake: current Alcohol Intake frequency: holidays/special occasions only Drug use: Never Substance use type: does not use Adopted: Yes (Adopted by father) Caregiver/Support person: No Foster care: No Household members: spouse Number of Children: 1 Communication Needs: None Pets and animals: Yes Pets and animals: cat(s) Sexually active: Yes Current gender identity: male What type of physical activity do you participate in: walking Duration: 60-90 minutes/day Frequency: daily Seatbelt use: always Helmet use: Yes Drive intox or ride w/intox horse and wagon driver: No Water heater temp set <120 deg: No (comes off wood stove) Working smoke detector in home: Yes Fire extinguisher in home: Yes Carbon monox detector in home: Yes Firearms in home: Yes Firearms unloaded and locked: Yes Do you feel safe at home: Yes Do you feel safe in your relationship?: Yes Exam Const General: cooperative [facility] Head: normocephalic and atraumatic Mouth: moist mucous membranes Eyes Conjunctivae: normal conjunctivae Sclera: normal sclerae Neck Neck: trachea midline and supple Resp Auscultation: clear to auscultation bilaterally, no rales, no rhonchi and no wheezes Cardio Jugular venous pressure: no JVD Rate: regular rate and not tachycardic Rhythm: regular rhythm GI Palpation: soft, not firm, guarding, no masses, not rigid and tender Skin General skin exam: no rashes or lesions noted Neuro General: patient alert, patient awake and tone normal Extrem General: no edema Psych Appearance: grossly normal Mental Status: mental status grossly normal Course Vital Signs Vital signs: Vital Signs Temperature 37.1 C 08/22/20 15:58 Pulse 73 08/22/20 15:58 Respiratory Rate 24 08/22/20 15:58 Blood Pressure 149/59 H 08/22/20 15:58 Pulse Oximetry 97 08/22/20 15:58 Temperature 37.1 C 08/22/20 15:58 Temperature Source Temporal Artery Scan 08/22/20 15:58 Pulse 73 08/22/20 15:58 Respiratory Rate 24 08/22/20 15:58 Respiratory Effort Non-Labored 08/22/20 16:01 Blood Pressure 149/59 H 08/22/20 15:58 Blood Pressure Position Supine 08/22/20 15:58 Pulse Oximetry 97 08/22/20 15:58 Oxygen Delivery Method Room Air 08/22/20 15:58 Oxygen Flow Rate 0 08/22/20 15:58 Pain Level 10 08/22/20 15:58 Lab/Test Results Lab/Test Results: Laboratory Tests Range/Units 08/22/20 16:00 WBC (4.4-10.8) 10^3/uL 12.87 H RBC (4.36-5.78) 10^6/uL 4.45 Hgb (13.5-17.5) g/dL 14.9 Hct (40.0-50.0) % 43.3 MCV (80-95) fL 97.3 H MCH (27.0-33.0) pg 33.5 H MCHC (32.0-36.0) % 34.4 RDW (11.8-14.1) % 11.9 Plt Count (130-400) 10^3/uL 327 MPV (8.0-11.0) fL 9.2 Immature Gran % 0.2 Neutrophils % 71.1 Lymphocytes % 19.8 Monocytes % 8.2 Eosinophils % 0.4 Basophils % 0.3 Nucleated RBC % % 0 Absolute Neutrophils (1.2-6.7) 10^3/uL 9.15 H Absolute Lymphocytes (1.2-3.4) 10^3/uL 2.55 Absolute Monocytes (0.1-0.8) 10^3/uL 1.06 H Absolute Eosinophils (0.0-0.7) 10^3/uL 0.05 Absolute Basophils (0.0-0.2) 10^3/uL 0.04
[2020-08-22 16:45] LABS: ALT 31 U/L (16-63); AST 28 U/L (15-37); Albumin 4.5 g/dL (3.4-5.0); Alkaline Phosphatase 65 U/L (46-116); Anion Gap 15.2 mmol/L (3-11); BUN 21 mg/dL (7-18); Bilirubin, Total 1.1 mg/dL (0.2-1.0); CO2 22.8 mmol/L (21.0-32.0); CREATININE 0.91 mg/dL (0.70-1.30); Calcium 9.6 mg/dL (8.5-10.1); Chloride 100 mmol/L (98-107); Glucose 97 mg/dL (74-106); Lipase 55 U/L (73-393); Potassium 4.1 mmol/L (3.5-5.1); Sodium 138 mmol/L (136-145); Total Protein 8.6 g/dL (6.4-8.2)
[2020-08-22] MEDS: Omnipaque 350 MG/ML 100 ML BTL IJ (17:29)
--- NOTE | 2020-08-22 18:05 | DI.VRAD_ITS ---
PROCEDURE INFORMATION: Exam: CT Abdomen And Pelvis With Contrast Exam date and time: 08/22/2020 5:25 PM Age: 65 years old Clinical indication: Abdominal pain; Prior surgery; Surgery type: Ostomy 27 years ago, no ostomy output since 0400 today TECHNIQUE: Imaging protocol: Computed tomography of the abdomen and pelvis with intravenous contrast. COMPARISON: CT ABD PELVIS WITH CONTRAST 11/28/2015 4:20 PM FINDINGS: Liver: Normal. No mass. Gallbladder and bile ducts: Again noted is a region of mild segmental wall thickening of the gallbladder fundus, as seen around image 29, series 4, stable since prior study, which could represent focal adenomyomatosis. Pancreas: Normal. No ductal dilation. Spleen: Normal. No splenomegaly. Adrenal glands: Normal. No mass. Kidneys and ureters: Normal. No hydronephrosis. Stomach and bowel: Again noted are postoperative changes of total colectomy with right lower quadrant ileostomy. Again noted is dilatation of multiple small bowel loops, measuring up to 4.4 cm diameter which is without clear change from prior study. There is a defined transition point to distal collapsed small bowel loops in the lower right abdomen anterior to the right common iliac vessels on image 44, series 4, which is also without clear change from prior study, as seen on image 48, series 5 of the prior study. Findings are consistent with chronic partial small bowel obstruction. There is no focal mass lesion at the transition point identified and the cause of the obstruction is likely postoperative adhesions. Again noted are regions of mild mesenteric fluid and stranding around some of the dilated small bowel lobes with possible mild wall thickening as well, suggesting mild inflammatory changes, but this appears stable since prior study. There is no pneumatosis identified. Appendix: No evidence of appendicitis. Intraperitoneal space: There is a tiny amount of ascites anterior to the liver, increased from prior study. There is no free intraperitoneal air. Vasculature: No portal venous gas is identified. Lymph nodes: Unremarkable. No enlarged lymph nodes. Urinary bladder: Unremarkable as visualized. Reproductive: Unremarkable as visualized. Bones/joints: There is multilevel mild spondylosis of the lumbar spine. No acute fractures identified. Soft tissues: Unremarkable. IMPRESSION: 1. Findings of chronic mid-distal small bowel obstruction associated with postoperative adhesions, as described above. There is some chronic mild inflammatory change of the dilated small bowel loops proximal to the transition point suggesting regions of mild enteritis. Cannot exclude ischemic enteritis on this exam. Recommend clinical correlation. 2. Stable focal region of mild segmental wall thickening of the gallbladder fundus, suggesting adenomyomatosis. Further evaluation with right upper quadrant ultrasound could be obtained as clinically indicated. Findings were discussed with KATT WILEY at 08/22/2020 6:03 PM EST. Dictated and Authenticated by: Josh Araiza MD. Ordering:GEORGINA Hill MD
[2020-08-22] MEDS: Normal Saline 250 ML IV (18:30)
[2020-08-22] MEDS: Lidocaine 2% Jelly 6 ML SYR (18:45)
--- NOTE | 2020-08-22 19:20 | DI.RAD_ITS ---
EXAM: XR PORTABLE CHEST AP POST LINE CLINICAL HISTORY: upright, ng tube placement TECHNIQUE: 2D digital imaging was performed. COMPARISON: CR,XR XR PORTABLE CHEST AP POST LINE from 08/22/2020 FINDINGS: MEDIASTINUM: Normal. HEART: Normal. PULMONARY VASCULATURE: Normal. LUNGS: Clear. PLEURAL SPACE: No pleural effusion or pneumothorax. There is a lucency projected over the superior la teral aspect of the right lung which likely reflects a skinfold. Pneumothorax is considered less lik mariam. BONE:Within normal limits for the patient's age. OTHER FINDINGS:There is a nasogastric tube seen. The distal aspect of the tube can only be identifie d to the T10 level. It appears to lie in the distal esophagus. A nerve stimulator device is again s een projected over the thoracic spine. IMPRESSION: 1. Tip of the nasogastric tube not visualized past the T10 vertebral level. At likely resides in the distal esophagus. It should be advanced and a follow-up chest x-ray obtained to document placement. 2. Lucency in the right apical lung field. This is likely due to a skin fold. Pneumothorax is consi dered less likely. Follow-up chest x-ray recommended for further evaluation. DATA REPOSITORY: RADIATION DOSE DELIVERED:
[2020-08-22] MEDS: Ketorolac 30 MG/ML VIAL 15 MG IVP (19:40)
--- NOTE | 2020-08-22 19:53 | DI.VRAD_ITS ---
PROCEDURE INFORMATION: Exam: XR Chest, 1 View Exam date and time: 08/22/2020 7:22 PM Age: 65 years old Clinical indication: Device placement; Ng tube TECHNIQUE: Imaging protocol: XR of the chest Views: 1 view. COMPARISON: CR PORTABLE CHEST ONE VIEW 11/28/2015 5:30 PM FINDINGS: Tubes, catheters and devices: There is a vertically oriented tube projecting over the mediastinum extending to approximately the T7 level. This tube is not visualized more distally, and likely resides within the esophagus. Again noted are neurostimulator leads projecting over the midthoracic spine, unchanged. Lungs: The lungs appear clear. There is no pulmonary vascular congestion. Pleural space: No layering pleural effusions are identified. Heart/Mediastinum: Heart size is indeterminate and may be near the upper limits of normal. Bones/joints: Unremarkable. Soft tissues: There is lucency central to the rib margins projecting at the lateral apical region of right chest, having a thickness 1.5 cm, in a configuration which could represent a skin fold, but cannot exclude pneumothorax. IMPRESSION: 1. Tip of nasogastric tube not visualized past the level of the midesophagus. Recommend advancement. 2. Cannot exclude small right apical pneumothorax, as described above. Recommend upright chest x-ray for further evaluation. Findings were discussed with KATT WILEY at 08/22/2020 7:52 PM EST. Dictated and Authenticated by: Josh Araiza MD. Ordering:GEORGINA Hill MD
--- NOTE | 2020-08-22 20:28 | DI.VRAD_ITS ---
PROCEDURE INFORMATION: Exam: XR Chest, 1 View Exam date and time: 08/22/2020 8:18 PM Age: 65 years old Clinical indication: Other: S/P ng tube adjustment. TECHNIQUE: Imaging protocol: XR of the chest Views: 1 view. COMPARISON: CR XR PORTABLE CHEST AP POST LINE 08/22/2020 7:09 PM FINDINGS: Tubes, catheters and devices: There has been advancement of the nasogastric tube since prior study, with its tip now projecting at the gastric fundus. Again noted are neurostimulator leads projecting over the midthoracic spinal canal, unchanged. Lungs: The lungs are clear. There is no pulmonary vascular congestion. Pleural space: No layering pleural effusions are identified. The lucency at the lateral apical region of the right chest is again visualized, but now appears to be contiguous with a skin fold extending exterior to the rib margins. There is no evidence of pneumothorax. Heart/Mediastinum: Heart size is likely near the upper limits of normal. IMPRESSION: 1. Tip of nasogastric tube now projects at the gastric fundus. 2. The lucency at the apical region of the right chest is seen to be related to a skin fold. No evidence of pneumothorax. Dictated and Authenticated by: Josh Araiza MD. Ordering:FEDERICO Mathews MD
--- NOTE | 2020-08-22 20:33 | W.PM.HP.N ---
Date of service: 08/23/20 Time of Service: 07:40 Assessment and Plan Assessment and plan (1) Small bowel obstruction: Status: Acute Assessment and plan: The CT images from this admission are reviewed and are similar in appearance to CT from 2015. This seems to be an acute on chronic SBO possibly related to ingestion of fibrous foods. Will treat with NG/fluids/pain management. 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 His case was discussed with colo-rectal surgery at [facility] [[email or web address]] where his prior surgery was performed. They agree with non-operative management at this point but are available for transfer if patient needs surgical intervention. History of Present Illness Narrative: This 65 year old man with history of Crohns disease s/p proctocolectomy with end ileostomy presented to the ER last night with complaints of abdominal pain and decreased ostomy output. He did not have any significant output from the ostomy since 0430 the morning of admisison. He had no results with irrigation of the ostomy. Nausea but no vomiting. His will have intermittent obstructions that resolve at home. His last admission was in 2018 and the obstruction took several days to resolve. [facility] Medical History Bowel obstruction (11/02/14) BPH without urinary obstruction (06/16/13) Chronic daily headache Chronic low back pain with right-sided sciatica (05/25/18) Chronic pain (11/02/11) BH 2/10 low risk; neg comorbid psych. Crohn's disease with complication (11/02/11) Dr. Heaton [facility] GI S/p 4 SB resections with an ileostomy (placed 2002) Ongoing intermittent SBO relieved with flusing red rubber catheter 11/28/15 recurrent SBO [facility] Degeneration of lumbar intervertebral disc (03/29/13) recurrent L4-[address] Chowdary [facility] spine clinic; spondolysis lumbar RF Rx [facility] 10/2012; 12/28/14 thoracic laminectomy and spinal cord stimulator Erectile dysfunction Headache High serum high density lipoprotein (HDL) (04/26/18) 03/2020: good response to statin therapy, continue History of [place] (myocardial infarction) 03/08/2019 nuclear stress test (carried out for new LAFB): no reversible ischemia, however, a small sized, moderately intense, fixed defect involving the apical wall(s). This suggests small myocardial infarction vs. imaging artifact. --> discussed statin and aspirin with pt --> pt will think about statin and cannot take aspirin due to development of many stomach ulcers on baby aspirin in the past IFG (impaired fasting glucose) (04/26/18) Ileostomy in place Multiple gastric ulcers (12/21/14) 03/28/2015 EGD: normal OA (osteoarthritis) Osteopenia (12/20/13) FRAX risk: 6.8%/1.1% osteop/hip; VitD insuff DEXA 08/25/16 WNL Rheumatoid arthritis [facility] Rheumatology Vitamin B 12 deficiency Vitamin D deficiency Surgical History S/P proctocolectomy S/P small bowel resection thoracic laminectomy/spinal cord stimulator (12/28/14) Family History Mother , COPD COPD (chronic obstructive pulmonary disease) Father COPD (chronic obstructive pulmonary disease) Dementia Social History Smoking/Tobacco Use Status: Former Tobacco Use Smoking risk assessment performed?: Yes Alcohol Intake: current Alcohol Intake frequency: holidays/special occasions only Drug use: Never Substance use type: does not use Adopted: Yes (Adopted by father) Caregiver/Support person: No Foster care: No Household members: spouse Number of Children: 1 Communication Needs: None Pets and animals: Yes Pets and animals: cat(s) Sexually active: Yes Current gender identity: male What type of physical activity do you participate in: walking Duration: 60-90 minutes/day Frequency: daily Seatbelt use: always Helmet use: Yes Drive intox or ride w/intox driver education road instructor: No Water heater temp set <120 deg: No (comes off wood stove) Working smoke detector in home: Yes Fire extinguisher in home: Yes Carbon monox detector in home: Yes Firearms in home: Yes Firearms unloaded and locked: Yes Do you feel safe at home: Yes Do you feel safe in your relationship?: Yes Meds Home Medications and Allergies Home Medications Medication Instructions Recorded Confirmed Type acetaminophen [Acetaminophen Extra 2 tab PO Q8H PRN 12/21/12 08/22/20 History Strength] calcium carbonate 500 mg PO DAILY 12/21/12 08/22/20 History multivitamin [Multiple Vitamins] 1 ea PO DAILY 12/21/12 08/22/20 History adalimumab 40 mg/0.8 mL 40 mg SUBCUT .EVERY OTHER WEEK 12/09/18 08/22/20 History subcutaneous pen kit tamsulosin 0.4 mg capsule 0.4 mg PO DAILY #90 tab-cap 06/21/19 08/22/20 Rx cholecalciferol (vitamin D3) 50 4,000 unit PO DAILY #180 tab-cap 01/19/20 08/22/20 Rx mcg (2,000 unit) tablet diclofenac sodium 1 % topical gel 2 gm TOPICAL QID PRN #3 tube 01/19/20 08/22/20 Rx lidocaine 5 % topical patch 2 patch TP DAILY #180 each 01/19/20 08/22/20 Rx diphenoxylate-atropine 2.5 3 tab PO TID PRN #810 tab-cap 04/05/20 08/22/20 Rx mg-0.025 mg tablet lisinopril 10 mg tablet 10 mg PO DAILY #90 tab-cap 04/05/20 08/22/20 Rx colostomy bags #2 each 06/19/20 08/22/20 Rx ostomy supplies #2 each 06/19/20 08/22/20 Rx ostomy supplies #50 each 06/19/20 08/22/20 Rx tofacitinib 11 mg tablet,extended 11 mg PO Q24H tab 06/28/20 08/22/20 History release 24 hr tramadol 50 mg tablet 50 mg PO TID PRN #50 tab-cap MDD 06/28/20 08/22/20 Rx 150 mg atorvastatin 40 mg tablet 40 mg PO DAILY #90 tab-cap 07/25/20 08/22/20 Rx pantoprazole 20 mg tablet,delayed 40 mg PO DAILY #180 tab-cap 07/25/20 08/22/20 Rx release cyanocobalamin (vitamin B-12) 1,000 mcg IM MONTHLY #3 vial 08/12/20 08/22/20 Rx 1,000 mcg/mL injection solution ostomy supplies #28.3 g 08/15/20 08/22/20 Rx insulin syringes (disposable) 1 mL #12 ea 08/16/20 08/22/20 Rx Allergies Allergy/AdvReac Type Severity Reaction Status Date / Time minocycline [Minocycline] Allergy Severe PER [facility] Verified 08/22/20 16:02 RECORDS ADDED 01/06/13 ketamine Allergy Unknown Pt Verified 08/22/20 16:02 reported like an out of body experience diltiazem HCl [From Cardizem] Allergy Verified 08/22/20 16:02 fluoxetine HCl [From Prozac] Allergy Verified 08/22/20 16:02 Penicillins Allergy itching, Verified 08/22/20 16:02 swelling of hands tetracycline [Tetracycline] Allergy tongue Verified 08/22/20 16:02 swelling aspirin AdvReac unable to Verified 08/22/20 16:02 take high dose d/t nose bleeds morphine AdvReac hallucinate Verified 08/22/20 16:02 Exam Narrative Exam Narrative: Appears uncomfortable. NG with bilious output Abdomen not distended. Diffuse moderate tenderness to palpation. Small amount of air in the ostomy bag. Results Labs Result diagrams: 08/23/20 06:30 08/23/20 06:30 Labs: Laboratory Results - last 24 hr 08/22/20 08/22/20 08/22/20 16:00 16:00 19:22 WBC 12.87 H RBC 4.45 Hgb 14.9 Hct 43.3 MCV 97.3 H MCH 33.5 H MCHC 34.4 RDW 11.9 Plt Count 327 MPV 9.2 Immature Gran % 0.2 Neutrophils % 71.1 Lymphocytes % 19.8 Monocytes % 8.2 Eosinophils % 0.4 Basophils % 0.3 Nucleated RBC % 0 Absolute Neutrophils 9.15 H Absolute Lymphocytes 2.55 Absolute Monocytes 1.06 H Absolute Eosinophils 0.05 Absolute Basophils 0.04 Sodium 138 Potassium 4.1 Chloride 100 Carbon Dioxide 22.8 Anion Gap 15.2 H BUN 21 H Creatinine 0.91 Estimated GFR/1.73 m2 >= 60.00 Glucose 97 Calcium 9.6 Total Bilirubin 1.1 H AST 28 ALT 31 Alkaline Phosphatase 65 Total Protein 8.6 H Albumin 4.5 Lipase 55 COVID-19 PCR Cancelled Nasopharyn COVID-19 PCR Cancelled Ref Test Perform Site Cancelled Last Vital Signs Temp 98.8 F 08/22/20 15:58 Pulse 64 08/22/20 19:40 Resp 22 08/22/20 19:40 BP 134/57 L 08/22/20 19:40 Pulse Ox 95 08/22/20 19:40 COVID-19 Screening Have you,or household,traveled outside [place] in last 14 days?: No Had IN PERSON contact w/suspected or confirmed C-19 person: No
[2020-08-22] MEDS: ACETAMINOPHEN 1,000 MG/100 ML BTL 400 MG IVPB (22:00)
[2020-08-22] MEDS: Pantoprazole 40 MG VIAL IVP (22:00)
[2020-08-22 22:46] LABS: Lactate 0.5 mmol/L (0.6-1.4)
[2020-08-23] MEDS: Ketorolac 30 MG/ML VIAL 15 MG IVP (03:30)
[2020-08-23] MEDS: HYDROmorphone 2 MG/ML VIAL 1 MG IVP ×4 (03:30→11:56)
[2020-08-23] MEDS: Normal Saline Flush 10 ML SYR IVP ×5 (03:31→21:24)
[2020-08-23] MEDS: Lactated Ringers 1,000 ML 125 ML IV ×2 (03:36→11:56)
[2020-08-23 06:56] LABS: Abs Immature Grans 0.04 10^3/uL (0.0-0.06); Absolute Basophil Count 0.03 10^3/uL (0.0-0.2); Absolute Eosinophil Count 0.15 10^3/uL (0.0-0.7); Absolute Monocyte Count 1.23 10^3/uL (0.1-0.8); Basophils % 0.3; Eosinophils % 1.3; HCT 38.1 % (40.0-50.0); HGB 12.8 g/dL (13.5-17.5); Immature Grans % 0.3; Lymphocytes % 20.1; MCH 33.7 pg (27.0-33.0); MCHC 33.6 % (32.0-36.0); MCV 100.3 fL (80-95); MPV 9.1 fL (8.0-11.0); Monocytes % 10.6; Neutrophils % 67.4; Nucleated RBC 0 %; Platelet Count 250 10^3/uL (130-400); RDW 12.2 % (11.8-14.1); RDW-SD 45.3 fL; WBC 11.62 10^3/uL (4.4-10.8)
[2020-08-23 07:02] LABS: Absolute Lymphocyte Count 2.34 10^3/uL (1.2-3.4); Absolute Neutrophil Count 7.83 10^3/uL (1.2-6.7)
[2020-08-23 07:23] LABS: Anion Gap 7.2 mmol/L (3-11); BUN 21 mg/dL (7-18); CO2 28.8 mmol/L (21.0-32.0); CREATININE 0.96 mg/dL (0.70-1.30); Calcium 8.5 mg/dL (8.5-10.1); Chloride 103 mmol/L (98-107); Glucose 81 mg/dL (74-106); Potassium 4.5 mmol/L (3.5-5.1); Sodium 139 mmol/L (136-145)
[2020-08-23] MEDS: Tamsulosin 0.4 MG CAPCR PO (07:57)
[2020-08-23] MEDS: Lidocaine 5% Patch 2 PATCH TP (08:02)
[2020-08-23 08:23] VITALS: BP 113/57; PULSE 72; RESP 16; TEMP 36.7; O2SAT 96
--- NOTE | 2020-08-23 09:45 | INITIAL_ITS ---
- If Service Date Differs Date of service: 08/23/20 Time of Service: 09:45 Care Management Initial Assess REASON FOR HOSPITALIZATION:: SBO PAST MEDICAL HISTORY/PAST SURGICAL HISTORY:: Medical History. Bowel obstruction (11/02/14). BPH without urinary obstruction (06/16/13). Chronic daily headache. Chronic low back pain with right-sided sciatica (05/25/18). Chronic pain (11/02/11). 11/27 low risk; neg comorbid psych. Crohn's disease with complication (11/02/11). Dr. Heaton [facility] GI. S/p 4 SB resections with an ileostomy (placed 2002). Ongoing intermittent SBO relieved with flusing red rubber catheter. 11/28/15 recurrent SBO [facility] Degeneration of lumbar intervertebral disc (03/29/13). recurrent L4-[address] Chowdary. [facility] [place]; spondolysis lumbar RF Rx [facility] [place]2012; 12/28/14 thoracic laminectomy and spinal cord stimulator. Erectile dysfunction. Headache. High serum high density lipoprotein (HDL) (04/26/18). 03/2020: good response to statin therapy, continue. History of [place] (myocardial infarction). 03/08/2019 nuclear stress test (carried out for new LAFB): no reversible ischemia, however, a small sized, moderately intense, fixed defect involving the apical wall(s). This suggests small myocardial infarction vs. imaging artifact. --> discussed statin and aspirin with pt --> pt will think about statin and cannot take aspirin due to development of many stomach ulcers on baby aspirin in the past. IFG (impaired fasting glucose) (04/26/18). Ileostomy in place. Multiple gastric ulcers (12/21/14). 03/28/2015 EGD: normal. OA (osteoarthritis). Osteopenia (12/20/13). FRAX risk: 6.8%/1.1% osteop/hip; VitD insuff. DEXA 08/25/16 WNL. Rheumatoid arthritis. [facility] Rheumatology. Vitamin B 12 deficiency. Vitamin D deficiency. Surgical History. S/P proctocolectomy. S/P small bowel resection. thoracic laminectomy/spinal cord stimulator (12/28/14) PREVIOUS FUNCTIONAL STATUS/SOCIAL/FAMILY SUPPORTS:: Artuor lives in [place] with his , Rola. His daughter, Tiffany is a PT, who lives in [place], [place]. 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 He reports that he generally walks five miles a day, and is very independent. CURRENT FUNCTIONAL STATUS:: Arturo was lying in bed when CM met with him. He stated that he was in a lot of pain, even with his pain being managed by his RN. He reported that this is not new to him, as he has had bowel obstructions in the past. Per report, MD will attempt non surgical management, and if surgery is indicated he may need to be transferred to a tertiary facility. CM will continue to follow. ADVANCE DIRECTIVES:: On file, Rola listed as agent. Has patient been provided with info about the portal/API?: Yes Did the patient sign up for the portal?: Yes (previously) CODE STATUS:: Full Code INSURANCE COVERAGE / FINANCIAL ISSUES:: [place]/ [place]/ [employer]BS CURRENT HOME/COMMUNITY SERVICES/EQUIPMENT:: No current services or equipment at this time. PRIMARY CARE PHYSICIAN:: Nabila Rodriguez POTENTIAL DISCHARGE NEEDS:: Evaluations for further needs, follow up appointments. PATIENT/FAMILY EDUCATION NEEDS:: Review discharge instructions regarding acti vity levels and medications, discussion of self care needs including ask me three. ANTICIPATED BARRIERS TO DISCHARGE:: None identified at this time. TRANSPORTATION:: via private vehicle by family PLAN:: Anticipate Arturo will return home with no additional services once medically cleared. He will be driven home via private vehicle by family. He will follow up with his PCP and discharge plan of care. CM will continue to follow.
[2020-08-23] MEDS: Ketorolac 15 MG/ML VIAL IVP ×2 (10:11→19:17)
[2020-08-23] MEDS: DEXTROSE 5%-LACTATED RINGERS 1,000 ML 125 ML IV (14:04)
[2020-08-23] MEDS: HYDROmorphone 2 MG/ML VIAL IVP ×3 (14:05→20:20)
--- NOTE | 2020-08-23 14:36 | CHAPLAIN ---
Arturo was resting in bed, clearly not comfortable, when I visited. I didn't stay long. Arturo said he was in touch with family or friends by phone. I will continue to visit.
--- NOTE | 2020-08-23 14:57 | PHA.REVIEW ---
Pharmacy Admission Review - Admission Clinical Review (Last Reviewed 08/22/20 @ 20:43 by Bisi Haque MD) Small bowel obstruction (Acute) minocycline [Minocycline] Allergy (Severe, Verified 08/22/20 16:02) PER [facility] RECORDS ADDED 01/06/13 ketamine Allergy (Unknown, Verified 08/22/20 16:02) Pt reported like an out of body experience diltiazem HCl [From Cardizem] Allergy (Verified 08/22/20 16:02) fluoxetine HCl [From Prozac] Allergy (Verified 08/22/20 16:02) Penicillins Allergy (Verified 08/22/20 16:02) itching, swelling of hands tetracycline [Tetracycline] Allergy (Verified 08/22/20 16:02) tongue swelling aspirin Adverse Reaction (Verified 08/22/20 16:02) unable to take high dose d/t nose bleeds morphine Adverse Reaction (Verified 08/22/20 16:02) hallucinate Height 5 ft 8 in Weight 72.167 kg - Renal Dosing Renal Dosing: BUN 21 mg/dL (7-18) H 08/23/20 06:30 Creatinine 0.96 mg/dL (0.70-1.30) 08/23/20 06:30 Medications needing adjustments: Reviewed (Crcl ~74 mL/min current meds okay) - Anticoagulation Anticoagulation: Hgb 12.8 g/dL (13.5-17.5) L D 08/23/20 06:30 Hct 38.1 % (40.0-50.0) L 08/23/20 06:30 Plt Count 250 10^3/uL (130-400) 08/23/20 06:30 Creatinine 0.96 mg/dL (0.70-1.30) 08/23/20 06:30 DVT Prohphylaxis: Intervened (Nothing mentioned in H&P so I asked provider about need. Per provider pt has SCDs ordered and a history of a gastric ulcer so holding off chemical prophylaxis.) Therapeutic Anticoagulation: N/A - Opiate Usage Evaluate Pain Scale/Pains Meds: Reviewed Scheduled Bowel Reg ordered if on Opiates?: No (bowel obstruction) - Relevant Labs Sodium 139 mmol/L (136-145) 08/23/20 06:30 Potassium 4.5 mmol/L (3.5-5.1) 08/23/20 06:30 Chloride 103 mmol/L (98-107) 08/23/20 06:30 Electrolytes, C-Reactive P, ESR: Reviewed - DM Control DM Control: Glucose 81 mg/dL (74-106) 08/23/20 06:30 Finger Stick Blood Glucose 64 Finger Stick Blood Glucose 66 Finger Stick Blood Glucose 66 Finger Stick Blood Glucose 66 Finger Stick Blood Glucose 77 Finger Stick Blood Glucose 77 Insulin Dosing: Reviewed (IVF with dextrose started, sliding scale aspart dosing changed from moderate to sensitive.) - Heart Failure/VA EF%, NANI's, B-Blockers, Diuretics: N/A - BP Control BP Control: Blood Pressure 113/57 If elevated: N/A (BP has been up and down since admission) - Qtc Review If Elevated: N/A - IV to PO Switch IV Medications: Reviewed - Home Meds Home Med List reviewed: Reviewed (Multiple DMARDs- avoid concomitant use of more than one biologic disease modifying antirheumatic drug. Multiple forms of vitamin D increases the risk of toxicity. Separate admin of calcium carbonate and multivitamin. Multiple MACHINE OPERATOR HELPER depressants- recommended to avoid concomitant use when possible.) Relevent Home Meds Not ordered & why?: adalimumab, atorvastatin, calcium carbonate, cholecalciferol, cyanocobalamin, diclofenac, diphenoxylate/atropine, lisinopril, multivitamin, tofacitinib. Pt is currently NPO right now. - Current meds Current Medication Order Review: Intervened (Ketorolac changed from 30 mg vial to 15 mg vial, patch removal time adjusted to 12 hours after lidcaine patch ordered.) - Comments Comments/Follow Ups: Watch BP, BG, labs and for med changes.
[2020-08-23] MEDS: Ondansetron 4 MG/2 ML VIAL IVP (16:30)
[2020-08-23] MEDS: ACETAMINOPHEN 1,000 MG/100 ML BTL 400 MG IVPB (19:16)
[2020-08-23 19:35] VITALS: BP 115/53; PULSE 65; RESP 17; TEMP 37.3; O2SAT 94
[2020-08-23] MEDS: Lidocaine Patch Removal 2 EACH TD (20:20)
[2020-08-23] MEDS: Pantoprazole 40 MG VIAL IVP (21:24)
[2020-08-24] MEDS: HYDROmorphone 2 MG/ML VIAL IVP ×4 (00:50→08:49)
[2020-08-24] MEDS: Normal Saline Flush 10 ML SYR IVP ×3 (00:50→03:21)
[2020-08-24] MEDS: DEXTROSE 5%-LACTATED RINGERS 1,000 ML 125 ML IV (02:17)
[2020-08-24 03:45] VITALS: BP 118/59; PULSE 37; RESP 17; TEMP 36.9; O2SAT 94
[2020-08-24 08:00] VITALS: BP 120/62; PULSE 60; RESP 15; TEMP 36.8; O2SAT 96
[2020-08-24 08:15] LABS: Abs Immature Grans 0.01 10^3/uL (0.0-0.06); Absolute Basophil Count 0.02 10^3/uL (0.0-0.2); Absolute Eosinophil Count 0.16 10^3/uL (0.0-0.7); Absolute Lymphocyte Count 1.12 10^3/uL (1.2-3.4); Absolute Monocyte Count 1.45 10^3/uL (0.1-0.8); Absolute Neutrophil Count 4.46 10^3/uL (1.2-6.7); Basophils % 0.3; Eosinophils % 2.2; HCT 37.6 % (40.0-50.0); HGB 12.6 g/dL (13.5-17.5); Immature Grans % 0.1; Lymphocytes % 15.5; MCH 33.2 pg (27.0-33.0); MCHC 33.5 % (32.0-36.0); MCV 98.9 fL (80-95); MPV 9.9 fL (8.0-11.0); Monocytes % 20.1; Neutrophils % 61.8; Nucleated RBC 0 %; Platelet Count 250 10^3/uL (130-400); RDW 11.9 % (11.8-14.1); RDW-SD 43.8 fL; WBC 7.22 10^3/uL (4.4-10.8)
[2020-08-24] MEDS: Ketorolac 15 MG/ML VIAL IVP (08:19)
[2020-08-24] MEDS: Tamsulosin 0.4 MG CAPCR PO (08:20)
[2020-08-24] MEDS: ACETAMINOPHEN 1,000 MG/100 ML BTL 400 MG IVPB (08:20)
[2020-08-24 08:24] LABS: Anion Gap 6.9 mmol/L (3-11); BUN 21 mg/dL (7-18); CO2 29.1 mmol/L (21.0-32.0); CREATININE 0.91 mg/dL (0.70-1.30); Calcium 8.2 mg/dL (8.5-10.1); Chloride 101 mmol/L (98-107); Glucose 119 mg/dL (74-106); Potassium 3.3 mmol/L (3.5-5.1); Sodium 137 mmol/L (136-145)
[2020-08-24] MEDS: Lidocaine 5% Patch 2 PATCH TP (08:24)
--- NOTE | 2020-08-24 10:05 | W.PM.PROGNOT ---
Date of Service Date of service: 08/24/20 Time of Service: 10:05 Assessment and Plan Assessment and plan (1) Small bowel obstruction: Status: Acute Assessment and plan: SBO has resolved. NG tube removed Start Clear liquids and advance as tolerated. D/C home later today if he does well. Subjective Subjective Interval history since last seen: Mr. Lopez is a pleasant 65 year old male admitted night with SBO. Patient has a history of Crohns, s/o total colectomy and multiple small bowel resections in the past. He has short bowel syndrome. He had an NG tube placed on night. NG tube output this am is minimal. He has more then 1 L of liquid stool in the bag as well as air. He still has pain when air or stool pass into the bag. He states that there is a kink as the small bowel gores through the fascia. he does get obstruction symptoms but usually is able to flush the ileostomy and get things to move. he is felling better. he is hungry and would like to go home. Exam Const General: cooperative, comfortable and no acute distress Orientation: alert and oriented x3 HENMT Head: normocephalic and atraumatic Resp Effort & Inspection: normal respiratory effort Auscultation: clear to auscultation bilaterally Cardio Rate: regular rate Rhythm: regular rhythm GI Inspection: scar (multiple scars noted of the abdomen) Palpation: soft, no hepatosplenomegaly and nontender Auscultation: normal bowel sounds Other: ostomy- bag with liquid stool and air Abdomen image: 1. ileostomy 2. midline scar Objective Last Vital Signs Temp 98.4 F 08/24/20 03:45 Pulse 37 L 08/24/20 03:45 Resp 17 08/24/20 03:45 BP 118/59 L 08/24/20 03:45 Pulse Ox 94 08/24/20 03:45 Laboratory Results - last 24 hr 08/24/20 08/24/20 07:34 07:34 WBC 7.22 D RBC 3.80 L Hgb 12.6 L Hct 37.6 L MCV 98.9 H MCH 33.2 H MCHC 33.5 RDW 11.9 Plt Count 250 MPV 9.9 Immature Gran % 0.1 Neutrophils % 61.8 Lymphocytes % 15.5 Monocytes % 20.1 Eosinophils % 2.2 Basophils % 0.3 Nucleated RBC % 0 Absolute Neutrophils 4.46 Absolute Lymphocytes 1.12 L Absolute Monocytes 1.45 H Absolute Eosinophils 0.16 Absolute Basophils 0.02 Sodium 137 Potassium 3.3 L D Chloride 101 Carbon Dioxide 29.1 Anion Gap 6.9 BUN 21 H Creatinine 0.91 Estimated GFR/1.73 m2 >= 60.00 Glucose 119 H Calcium 8.2 L
--- NOTE | 2020-08-24 14:04 | W.PM.DS.N ---
Date of service: 08/24/20 Time of Service: 14:04 DS: Diagnosis Discharge Diagnosis (1) Small bowel obstruction: Status: Acute Discharge Plan Disposition Patient Disposition: HOME Condition: Stable Discharge Details Reason For Visit: SMALL BOWEL OBSTRUCTION Admit Date/Time: 08/22/20 18:47 Admit Provider: Bisi Haque Attending Provider: Bisi Haque Primary Care Provider: Nabila Rodriguez Hospital Course Hospital Course: This 65 year old man with history of Crohns disease s/p proctocolectomy with end ileostomy presented to the ER night (08/22) with complaints of abdominal pain and decreased ostomy output. He did not have any significant output from the ostomy since 0430 the morning of admission. He had no results with irrigation of the ostomy which he states usually works. He complained of Nausea but no vomiting. His will have intermittent obstructions that resolve at home. His last admission was in 2017 and the obstruction took several days to resolve. He was treated with NG decompression and NPO status. His NG output decreased dramatically Wednesday and he started to have output from the ileostomy as well as air. His NG tube was removed on Wednesday morning. He was started on clear liquids. The patient tolerated the clear liquids and wished to be discharged home. Discussed advancing his diet slowly from clears to soft as tolerated. Follow up with his Colorectal surgeon at [facility] and his PCP Home Meds and New Rx's Prescriptions: Continued tramadol 50 mg tablet 50 mg PO TID MDD 150 mg PRN (Reason: pain) Qty: 50 RF: 2 diclofenac sodium [Voltaren] 1 % gel 2 gm Topical QID PRN (Reason: pain) Qty: 3 RF: 3 lidocaine 5 % adhesive patch,medicated 2 patch TP DAILY Qty: 180 RF: 3 cholecalciferol (vitamin D3) [Vitamin D3] 50 mcg (2,000 unit) tablet 4,000 unit PO DAILY Qty: 180 RF: 3 lisinopril 10 mg tablet 10 mg PO DAILY Qty: 90 RF: 3 diphenoxylate-atropine [Lomotil] 2.5-0.025 mg tablet 3 tab PO TID PRN (Reason: diarrhea) Qty: 810 RF: 3 multivitamin [Multiple Vitamins] 1 EACH tablet 1 ea PO DAILY RF: 0 acetaminophen [Acetaminophen Extra Strength] 500 MG tablet 2 tab PO Q8H PRN RF: 0 calcium carbonate 500 MG tablet 500 mg PO DAILY RF: 0 Humira Pen [id number]-[id number]-Fchc HS 40 mg/0.8 mL pen injector kit 40 mg subcut .EVERY OTHER WEEK RF: 0 tamsulosin [Flomax] 0.4 mg capsule 0.4 mg PO DAILY Qty: 90 RF: 3 (DME) Stomahesive Skin Barrier Misc See Rx Instructions .ROUTE .MEDSUPPLY Qty: 2 RF: 11 (DME) Adhesive Remover Wipes Swab See Rx Instructions .ROUTE .MEDSUPPLY Qty: 50 RF: 11 (DME) Drainable Pouch Misc See Rx Instructions .ROUTE .MEDSUPPLY Qty: 2 RF: 11 Xeljanz XR 11 mg tablet extended release 24 hr 11 mg PO Q24H RF: 0 atorvastatin 40 mg tablet 40 mg PO DAILY Qty: 90 RF: 3 pantoprazole [Protonix] 20 mg tablet,delayed release (DR/EC) 40 mg PO DAILY Qty: 180 RF: 3 cyanocobalamin (vitamin B-12) 1,000 mcg/mL solution 1,000 mcg IM MONTHLY Qty: 3 RF: 3 (DME) ostomy supplies [Stomahesive Protective] Powder See Rx Instructions .ROUTE .MEDSUPPLY Qty: 28.3 RF: 3 (DME) insulin syringes (disposable) 1 mL syringe See Rx Instructions .ROUTE .MEDSUPPLY Qty: 12 RF: 0 Discharge Instructions Referrals: Ankit Becker [ [facility] STAFF PHYSICIAN] - Nabila Rodriguez NP [Primary Care Provider] - Activity:: Activity as Tolerated Equipment/Supplies:: No Equipment Needed Diet:: As Tolerated Exam Const General: comfortable and no acute distress Orientation: alert and oriented x3 HENMT Head: normocephalic and atraumatic Resp Effort & Inspection: normal respiratory effort Auscultation: clear to auscultation bilaterally Cardio Rate: regular rate Rhythm: regular rhythm GI Palpation: soft, no hepatosplenomegaly and nontender Auscultation: normal bowel sounds Other: ileostomy working DS: Data Vitals/I&O Vitals and I&O: Vital Signs Temperature 98.4 F 08/24/20 03:45 Temperature Source Skin 08/24/20 03:45 Pulse 37 L 08/24/20 03:45 Pulse Rhythm Regular 08/24/20 08:20 Respiratory Rate 17 08/24/20 03:45 Respiratory Effort Non-Labored 08/24/20 08:20 Respiratory Depth Normal 08/24/20 08:20 Respiratory Pattern Normal 08/24/20 08:20 Blood Pressure 118/59 L 08/24/20 03:45 Blood Pressure Mean 76 08/22/20 19:16 Blood Pressure Position Supine 08/22/20 15:58 Pulse Oximetry 94 08/24/20 03:45 Oxygen Delivery Method Room Air 08/24/20 03:45 Oxygen Flow Rate 0 08/24/20 03:45 Pain Level 8 08/24/20 08:49 Comment manual bp 112/58 08/22/20 23:05 Intake & Output 08/23/20 08/24/20 08/24/20 23:59 11:59 23:59 Intake Total 1368.75 / 3250.00 1000 / 1000 Output Total 2050 / 2400 1370 / 1370 Balance -681.25 / 850.00 -370 / -370 Intake: IV 1368.75 / 3250.00 1000 / 1000 Output: Gastric Drainage 1400 / 1750 20 / 20 Right Nare 1400 / 1750 20 / 20 Urine 600 / 600 200 / 200 Stool 50 / 50 1150 / 1150 Other: Urine Color Straw Dark Kamla Urine Appearance Clear Clear Urine Odor Normal Gastric Occult Blood Right Nare Positive Voiding Methods Urinal Urinal Data Completed and Pending Labs on day of discharge: Labs from last 24 hours 08/24/20 08/24/20 07:34 07:34 WBC 7.22 D RBC 3.80 L Hgb 12.6 L Hct 37.6 L MCV 98.9 H MCH 33.2 H MCHC 33.5 RDW 11.9 Plt Count 250 MPV 9.9 Immature Gran % 0.1 Neutrophils % 61.8 Lymphocytes % 15.5 Monocytes % 20.1 Eosinophils % 2.2 Basophils % 0.3 Nucleated RBC % 0 Absolute Neutrophils 4.46 Absolute Lymphocytes 1.12 L Absolute Monocytes 1.45 H Absolute Eosinophils 0.16 Absolute Basophils 0.02 Sodium 137 Potassium 3.3 L D Chloride 101 Carbon Dioxide 29.1 Anion Gap 6.9 BUN 21 H Creatinine 0.91 Estimated GFR/1.73 m2 >= 60.00 Glucose 119 H Calcium 8.2 L PFS Medical History Bowel obstruction (11/02/14) BPH without urinary obstruction (06/16/13) Chronic daily headache Chronic low back pain with right-sided sciatica (05/25/18) Chronic pain (11/02/11) / low risk; neg comorbid psych. Crohn's disease with complication (11/02/11) Dr. Heaton [facility] GI S/p 4 SB resections with an ileostomy (placed 2002) Ongoing intermittent SBO relieved with flusing red rubber catheter 11/28/15 recurrent SBO [facility] [place] Degeneration of lumbar intervertebral disc (03/29/13) recurrent L4-[address] Chowdary [facility] spine clinic; spondolysis lumbar RF Rx [facility] 10/2012; 12/28/14 thoracic laminectomy and spinal cord stimulator Erectile dysfunction Headache High serum high density lipoprotein (HDL) (04/26/18) 03/2020: good response to statin therapy, continue History of OH (myocardial infarction) 03/08/2019 nuclear stress test (carried out for new LAFB): no reversible ischemia, however, a small sized, moderately intense, fixed defect involving the apical wall(s). This suggests small myocardial infarction vs. imaging artifact. --> discussed statin and aspirin with pt --> pt will think about statin and cannot take aspirin due to development of many stomach ulcers on baby aspirin in the past IFG (impaired fasting glucose) (04/26/18) Ileostomy in place Multiple gastric ulcers (12/21/14) 03/28/2015 EGD: normal OA (osteoarthritis) Osteopenia (12/20/13) FRAX risk: 6.8%/1.1% osteop/hip; VitD insuff DEXA 08/25/16 WNL Rheumatoid arthritis [facility] Rheumatology Vitamin B 12 deficiency Vitamin D deficiency Surgical History S/P proctocolectomy S/P small bowel resection thoracic laminectomy/spinal cord stimulator (12/28/14) Family History Mother , COPD COPD (chronic obstructive pulmonary disease) Father COPD (chronic obstructive pulmonary disease) Dementia Social History Smoking/Tobacco Use Status: Former Tobacco Use Smoking risk assessment performed?: Yes Alcohol Intake: current Alcohol Intake frequency: holidays/special occasions only Drug use: Never Substance use type: does not use Adopted: Yes (Adopted by father) Caregiver/Support person: No Foster care: No Household members: spouse Number of Children: 1 Communication Needs: None Pets and animals: Yes Pets and animals: cat(s) Sexually active: Yes Current gender identity: male What type of physical activity do you participate in: walking Duration: 60-90 minutes/day Frequency: daily Seatbelt use: always Helmet use: Yes Drive intox or ride w/intox mule driver: No Water heater temp set <120 deg: No (comes off wood stove) Working smoke detector in home: Yes Fire extinguisher in home: Yes Carbon monox detector in home: Yes Firearms in home: Yes Firearms unloaded and locked: Yes Do you feel safe at home: Yes Do you feel safe in your relationship?: Yes
[2020-08-24] MEDS: traMADol 50 MG TAB PO (14:21)
[2020-08-24 16:40] VITALS: BP 121/54; PULSE 61; RESP 19; TEMP 39.1; O2SAT 96
[2020-08-24] MEDS: Lidocaine Patch Removal 2 EACH TD (21:19)
[2020-08-24 23:50] VITALS: BP 114/56; PULSE 60; RESP 16; TEMP 37.9; O2SAT 96
--- NOTE | 2020-08-25 | DI.CT_ITS ---
EXAM: CT ABDOMEN PELVIS W CLINICAL HISTORY: SBo, worsening abdominal pain and fevers TECHNIQUE: 100 cc lung bases Omnipaque 350 COMPARISON: CT CT ABDOMEN PELVIS W from 08/22/2020 FINDINGS: Visualized lung bases: No nodules nor pleural effusions. There is no ascites. There are no concerning focal hepatic lesions and no dilatation of intrahepati c ducts. There is a layering sludge in the gallbladder. Gallbladder wall is mildly thickened. The CBD diamet er is upper normal. Pancreas appear unremarkable. There are no pancreatic masses and the pancreatic duct is not dilated. The spleen size is normal. The splenic and portal veins are patent. There are no significant adrenal masses. No significant focal findings in the kidneys. No cyst or masses nor calculi and no hydronephrosis. The abdominal aorta is not enlarged and there is no retroperitoneal or para-aortic adenopathy. There is a vascular anatomic variant here. Instead of a common celiac artery the common hepatic and splen ic arteries originate side by side of the anterior wall of the abdominal aorta. Superior mesenteric artery is patent. Inferior mesenteric artery is not opacified. There is no adenopathy round aorta bifurcation or along the Lety chains with there is no inguinal mary nopathy. Stomach is not distended. Duodenal C loop is not distended. Again noted is a right-sided ostomy site. No evidence of subcutaneous hernia at the ostomy site.. T he administered oral contrast has reached the colostomy bag. There is, however, some edema of small- bowel loops in the pelvis noted. There is no evidence of free air nor abscess. There are no lytic bone lesions are identified. There has been previous lumbar surgery-laminectomies . There is a left subcutaneous stimulator with electrode heading towards the thoracic epidural space , this beyond the field of view of this abdominal study. Incidentally noted is a vertically orientat ed channel in the right hip-subtrochanteric region which is most probably related to prior presence o f an intramedullary juan f at this level. IMPRESSION: 1. The oral contrast has progressed through the small bowel to the right-sided enterostomy. There is somewhat less fecalization of small bowel loops when compared to the prior study of 3 days ago and s omewhat less dilatation of small-bowel loops but there is an element of concerning edema of small bow el loops in the pelvis is evident, not associated with significant free fluid. There is also no evid ence of free air nor abscess. 2. The inferior mesenteric artery is not opacified. 3. There is sludge in the gallbladder but no evidence of acute cholecystitis and no dilatation of the biliary tree. 4. Evidence of previous lumbar laminectomies plus left subcutaneous stimulator devices leading to tho racic level electrodes. RADIATION DOSE DELIVERED: 650.96mGy.cm Total DLP
[2020-08-25 05:27] VITALS: TEMP 37.8
[2020-08-25 07:38] LABS: Abs Immature Grans 0.01 10^3/uL (0.0-0.06); Absolute Basophil Count 0.01 10^3/uL (0.0-0.2); Absolute Eosinophil Count 0.19 10^3/uL (0.0-0.7); Absolute Lymphocyte Count 0.99 10^3/uL (1.2-3.4); Absolute Monocyte Count 1.13 10^3/uL (0.1-0.8); Absolute Neutrophil Count 2.39 10^3/uL (1.2-6.7); Basophils % 0.2; HGB 12.8 g/dL (13.5-17.5); Immature Grans % 0.2; MCH 33.8 pg (27.0-33.0); MCHC 34.6 % (32.0-36.0); MCV 97.6 fL (80-95); MPV 10.2 fL (8.0-11.0); Monocytes % 23.9; Neutrophils % 50.7; Nucleated RBC 0 %; Platelet Count 237 10^3/uL (130-400); RBC 3.79 10^6/uL (4.36-5.78); RDW 12.1 % (11.8-14.1); RDW-SD 43.4 fL; WBC 4.72 10^3/uL (4.4-10.8)
[2020-08-25 08:13] VITALS: BP 115/65; PULSE 65; RESP 17; TEMP 37.3; O2SAT 98
[2020-08-25 08:13] LABS: ALT 19 U/L (16-63); AST 22 U/L (15-37); Albumin 3.3 g/dL (3.4-5.0); Alkaline Phosphatase 57 U/L (46-116); Anion Gap 7.1 mmol/L (3-11); BUN 11 mg/dL (7-18); Bilirubin, Total 0.7 mg/dL (0.2-1.0); CO2 30.9 mmol/L (21.0-32.0); CREATININE 0.84 mg/dL (0.70-1.30); Calcium 8.9 mg/dL (8.5-10.1); Chloride 100 mmol/L (98-107); Glucose 96 mg/dL (74-106); Potassium 3.1 mmol/L (3.5-5.1); Sodium 138 mmol/L (136-145); Total Protein 7.2 g/dL (6.4-8.2)
[2020-08-25 08:55] LABS: SARS-CoV-2 RNA Not Detected (NotDetected); SARS-CoV-2 RNA Source Nasal/Nares
[2020-08-25] MEDS: Lisinopril 10 MG TAB PO (09:12)
[2020-08-25] MEDS: Pantoprazole 20 MG TABCR 40 MG PO (09:12)
[2020-08-25] MEDS: Atorvastatin 40 MG TAB PO (09:13)
[2020-08-25] MEDS: Tamsulosin 0.4 MG CAPCR PO (09:13)
[2020-08-25] MEDS: Lidocaine 5% Patch 2 PATCH TP (09:13)
[2020-08-25] MEDS: traMADol 50 MG TAB PO (09:37)
--- NOTE | 2020-08-25 09:44 | W.PM.PROGNOT ---
Date of Service Date of service: 08/25/20 Time of Service: 09:44 Assessment and Plan Assessment and plan (1) Small bowel obstruction: Status: Acute Assessment and plan: Worsening abominal pain even though his ostomy is working. He doesn't look well today. Also having some fevers. WBC count is still normal. Stat CT scan abdo/Pelvis with IV and Oral contrast (2) Hypokalemia: Status: Acute Assessment and plan: Will replace Subjective Subjective Interval history since last seen: Arturo doesn't look good this morning. he is having increased abdominal pain. Ostomy is still working. he also has been having some fevers as high as 102 yesterday. NO chills. NO cough. Exam Const General: cooperative, comfortable and no acute distress Orientation: alert and oriented x3 [facility] Head: normocephalic and atraumatic Resp Effort & Inspection: normal respiratory effort Auscultation: clear to auscultation bilaterally Cardio Rate: regular rate Rhythm: regular rhythm GI Palpation: soft and tender (lower abdomen, no guarding or rebound) Auscultation: normal bowel sounds Objective Last Vital Signs Temp 99.1 F 08/25/20 08:13 Pulse 65 08/25/20 08:13 Resp 17 08/25/20 08:13 BP 115/65 08/25/20 08:13 Pulse Ox 98 08/25/20 08:13 Laboratory Results - last 24 hr 08/22/20 08/25/20 08/25/20 19:22 06:43 06:43 WBC 4.72 D RBC 3.79 L Hgb 12.8 L Hct 37.0 L MCV 97.6 H MCH 33.8 H MCHC 34.6 RDW 12.1 Plt Count 237 MPV 10.2 Immature Gran % 0.2 Neutrophils % 50.7 Lymphocytes % 21.0 Monocytes % 23.9 Eosinophils % 4.0 Basophils % 0.2 Nucleated RBC % 0 Absolute Neutrophils 2.39 Absolute Lymphocytes 0.99 L Absolute Monocytes 1.13 H Absolute Eosinophils 0.19 Absolute Basophils 0.01 Sodium 138 Potassium 3.1 L Chloride 100 Carbon Dioxide 30.9 Anion Gap 7.1 BUN 11 D Creatinine 0.84 Estimated GFR/1.73 m2 >= 60.00 Glucose 96 Calcium 8.9 Total Bilirubin 0.7 AST 22 ALT 19 Alkaline Phosphatase 57 Total Protein 7.2 Albumin 3.3 L COVID-19 PCR Cancelled Nasopharyn COVID-19 PCR Cancelled SARS-CoV-2 Source Nasal/nares SARS-CoV-2 (PCR) Not detected Ref Test Perform Site Cancelled
[2020-08-25] MEDS: Omnipaque 350 MG/ML 50 ML BTL IJ (11:10)
[2020-08-25] MEDS: Breeza Beverage 473 ML BTL PO (11:23)
[2020-08-25] MEDS: POTASSIUM CHLORIDE 20 MEQ/100 ML BAG 50 MEQ IVPB ×2 (12:28→16:11)
[2020-08-25] MEDS: Normal Saline 1,000 ML 80 ML IV (12:28)
[2020-08-25] MEDS: Omnipaque 350 MG/ML 100 ML BTL IJ (12:49)
[2020-08-25] MEDS: Normal Saline - Diluent 50 ML VIAL IV (12:52)
[2020-08-25] MEDS: Normal Saline Flush 10 ML SYR IVP ×2 (12:53→14:55)
[2020-08-25] MEDS: HYDROmorphone 2 MG/ML VIAL 0.5 MG IVP (13:23)
--- NOTE | 2020-08-25 13:40 | DI.VRAD_ITS ---
Addendum created by Josh Gifford MD on 08/25/2020 1:48:02 PM EST: Further review of the imaging when compared to CT of the abdomen and pelvis dated 08/22/2020 demonstrates progressive bowel wall thickening inflammatory changes which can be due to regional enteritis versus ischemia. THIS REPORT CONTAINS FINDINGS THAT MAY BE CRITICAL TO PATIENT CARE. The findings were verbally communicated via telephone conference with VICENTE Blanco at 1:47 PM EST on 08/25/2020. The findings were acknowledged and understood. Initial report created on 08/25/2020 1:40:18 PM EST: PROCEDURE INFORMATION: Exam: CT Abdomen And Pelvis With Contrast Exam date and time: 08/25/2020 9:42 AM Age: 65 years old Clinical indication: Other: Sbo, worsening abdominal pain and fevers; Prior surgery; Surgery date: 6+ months TECHNIQUE: Imaging protocol: Computed tomography of the abdomen and pelvis with intravenous contrast. Contrast material: OMNIPAQUE 350; Contrast volume: 100 ml; Contrast route: INTRAVENOUS (IV); Other contrast: Oral, Omnipaque 350 , 50mL; COMPARISON: CT ABDOMEN PELVIS W 08/22/2020 5:26 PM FINDINGS: Liver: No portal venous gas. No mass. Gallbladder and bile ducts: Again noted, region of mild segmental wall thickening of the gallbladder fundus. Cannot exclude focal adenomyomatosis. Pancreas: Unremarkable. No ductal dilation. Spleen: Unremarkable. No splenomegaly. Adrenal glands: Normal. No mass. Kidneys and ureters: Unremarkable. No hydronephrosis. Stomach and bowel: Redemonstrated postoperative changes of total colectomy with right lower quadrant ileostomy. Redemonstrated dilation of multiple small bowel loops measuring up to 4.4 cm without any definitive change from prior study except that now there is intraluminal enteric contrast. Additionally, contrast is seen into the ileostomy. There remains a defined transition point within the right lower quadrant. Findings remain consistent with chronic partial small bowel obstruction. Redemonstrated inflammatory change of the dilated small bowel and adjacent loops. No discrete evidence for pneumatosis. Appendix: No evidence of appendicitis. Intraperitoneal space: Small amount of perihepatic ascites. No free air. Vasculature: Unremarkable. No abdominal aortic aneurysm. Lymph nodes: Unremarkable. No enlarged lymph nodes. Urinary bladder: Unremarkable as visualized. Reproductive: Unremarkable as visualized. Bones/joints: Unchanged. No acute fracture. Soft tissues: Unremarkable. IMPRESSION: 1. Redemonstrated findings of chronic mid-distal small bowel obstruction. Enteric contrast is now seen within the ileostomy and the dilated small bowel loops which is consistent with chronic partial small bowel obstruction. Redemonstrated inflammatory change of the dilated small bowel and adjacent loops. 2. Redemonstrated stable focal region of mild segmental wall thickening of the gallbladder fundus which can be seen with adenomyomatosis. Again, further evaluation with right upper quadrant ultrasound can be obtained when clinically appropriate for further evaluation. Dictated and Authenticated by: Josh Gifford MD. Ordering:ELPIDIO Isaac MD
[2020-08-25 14:20] LABS: Abs Immature Grans 0.02 10^3/uL (0.0-0.06); Absolute Basophil Count 0.02 10^3/uL (0.0-0.2); Absolute Eosinophil Count 0.14 10^3/uL (0.0-0.7); Absolute Lymphocyte Count 1.82 10^3/uL (1.2-3.4); Absolute Monocyte Count 1.48 10^3/uL (0.1-0.8); Absolute Neutrophil Count 3.95 10^3/uL (1.2-6.7); Basophils % 0.3; Eosinophils % 1.9; HCT 39.9 % (40.0-50.0); HGB 13.6 g/dL (13.5-17.5); Immature Grans % 0.3; Lactate 0.7 mmol/L (0.6-1.4); Lymphocytes % 24.5; MCH 33.7 pg (27.0-33.0); MCHC 34.1 % (32.0-36.0); MPV 9.1 fL (8.0-11.0); Monocytes % 19.9; Neutrophils % 53.1; Nucleated RBC 0 %; Platelet Count 248 10^3/uL (130-400); RBC 4.03 10^6/uL (4.36-5.78); RDW 11.9 % (11.8-14.1); RDW-SD 44.3 fL; WBC 7.43 10^3/uL (4.4-10.8)
[2020-08-25 14:29] LABS: C-Reactive Protein 5.52 mg/dL (0.0-0.3)
[2020-08-25 14:38] LABS: ALT 20 U/L (16-63); AST 22 U/L (15-37); Albumin 3.6 g/dL (3.4-5.0); Alkaline Phosphatase 62 U/L (46-116); Anion Gap 4.2 mmol/L (3-11); BUN 12 mg/dL (7-18); Bilirubin, Total 0.6 mg/dL (0.2-1.0); CO2 30.8 mmol/L (21.0-32.0); CREATININE 0.95 mg/dL (0.70-1.30); Calcium 8.7 mg/dL (8.5-10.1); Chloride 96 mmol/L (98-107); Glucose 98 mg/dL (74-106); Potassium 3.7 mmol/L (3.5-5.1); Sodium 131 mmol/L (136-145); Total Protein 7.8 g/dL (6.4-8.2)
[2020-08-25] MEDS: HYDROmorphone 2 MG/ML VIAL 1 MG IVP (14:41)
[2020-08-25] MEDS: Pantoprazole 40 MG VIAL IVP (14:55)
[2020-08-25] MEDS: ACETAMINOPHEN 1,000 MG/100 ML BTL 400 MG IVPB ×2 (15:16→21:31)
[2020-08-25] MEDS: Enoxaparin 40 MG/0.4 ML SYR SC (15:17)
[2020-08-25] MEDS: methylPREDNISolone SUCC 40 MG VIAL 30 MG IVP (15:17)
[2020-08-25 15:52] VITALS: BP 107/65; PULSE 54; RESP 17; TEMP 36.8; O2SAT 95
[2020-08-25 16:04] LABS: Procalcitonin < 0.1 ng/mL
[2020-08-25] MEDS: Sucralfate 1 GM TAB PO ×2 (16:12→21:32)
--- NOTE | 2020-08-25 16:44 | PDOC.CMPRO ---
Care Management Progress Note S/O: CT scan results showed possible worsening, suspected Crohn's flare; per Colorectal consult with Dr. Redmond, Dr. Blanco started IV steroids. Discharge cancelled, CM continues to follow. A: 65 year old male admitted to [facility] 08/22/20 for SBO P: Anticipate Arturo will return home with no additional services once medically cleared. He will be driven home via private vehicle by family. He will follow up with his PCP and discharge plan of care. CM will continue to follow.
[2020-08-25] MEDS: HYDROmorphone 2 MG/ML VIAL IVP (20:45)
[2020-08-25] MEDS: Normal Saline 1,000 ML 150 ML IV (20:45)
[2020-08-25] MEDS: Lidocaine Patch Removal 2 EACH TD (20:46)
[2020-08-25 23:10] VITALS: BP 96/52; PULSE 51; RESP 17; TEMP 36.6; O2SAT 95
[2020-08-26 00:28] VITALS: BP 100/62; PULSE 59
[2020-08-26] MEDS: Pantoprazole 40 MG VIAL IVP ×2 (01:08→14:13)
[2020-08-26] MEDS: methylPREDNISolone SUCC 40 MG VIAL 30 MG IVP ×2 (01:08→14:12)
[2020-08-26] MEDS: HYDROmorphone 2 MG/ML VIAL IVP ×3 (01:09→14:13)
[2020-08-26] MEDS: Normal Saline Flush 10 ML SYR IVP (01:10)
[2020-08-26] MEDS: Sucralfate 1 GM TAB PO ×4 (03:51→21:39)
[2020-08-26] MEDS: Normal Saline 1,000 ML 150 ML IV ×2 (04:05→11:11)
[2020-08-26] MEDS: ACETAMINOPHEN 1,000 MG/100 ML BTL 400 MG IVPB (05:57)
[2020-08-26 06:53] LABS: Abs Immature Grans 0.01 10^3/uL (0.0-0.06); Absolute Monocyte Count 0.22 10^3/uL (0.1-0.8); Absolute Neutrophil Count 5.21 10^3/uL (1.2-6.7); HCT 36.8 % (40.0-50.0); HGB 12.6 g/dL (13.5-17.5); Immature Grans % 0.2; Lymphocytes % 11.4; MCH 33.9 pg (27.0-33.0); MCHC 34.2 % (32.0-36.0); MCV 98.9 fL (80-95); Monocytes % 3.6; Neutrophils % 84.8; Nucleated RBC 0 %; Platelet Count 241 10^3/uL (130-400); RBC 3.72 10^6/uL (4.36-5.78); RDW 11.9 % (11.8-14.1); RDW-SD 43.6 fL; WBC 6.14 10^3/uL (4.4-10.8)
--- NOTE | 2020-08-26 06:59 | PGE_ITS ---
Date of Service Date of service: 08/26/20 Time of Service: 07:00 Assessment and Plan Assessment and plan (1) Small bowel obstruction: Status: Acute Assessment and plan: Resolved. CT scan does show chronic dilatation of small bowel, consistent with chronic PSBO He is tolerating clears at this time (2) Crohn disease: Status: Chronic Assessment and plan: CT scan with evidence of increased inflammation and elevated CRP IV Methylprednisolone started at 30 mg IV BID Continue IV steroids for at least another 24 hours and the transition to oral Qualifiers: Gastrointestinal tract location: small intestine Digestive disease complication type: without complication Qualified Code(s): K50.00 - Crohn's disease of small intestine without complications (3) Gastritis: Status: Acute Assessment and plan: Had improvement of upper abdominal pain with a GI cocktail. ? Gastritis vs Gastric Crohns. Patient has Hx of PUD. Continue with protonix 40 mg BID and Carafate AC and HS Will need follow up with his GI Dr. at [facility] upon discharge. Qualifiers: Gastritis type: unspecified gastritis Chronicity: acute Gastritis bleeding: presence of bleeding unspecified Qualified Code(s): K29.00 - Acute gastritis without bleeding Subjective Subjective Interval history since last seen: Arturo is feeling better this morning. His abdominal pain has improved. He continues to have liquid stool and air through the ostomy. No N/V and no fevers overnight. Exam Const General: cooperative, comfortable and no acute distress Orientation: alert and oriented x3 HENMT Head: normocephalic and atraumatic Resp Effort & Inspection: normal respiratory effort Auscultation: clear to auscultation bilaterally Cardio Rate: regular rate Rhythm: regular rhythm GI Palpation: soft, no hepatosplenomegaly and tender (mild tenderness diffusely. NO rebound or guarding. Improved from yesterday) Auscultation: normal bowel sounds Objective Last Vital Signs Temp 97.9 F 08/25/20 23:10 Pulse 59 L 08/26/20 00:28 Resp 17 08/25/20 23:10 BP 100/62 08/26/20 00:28 Pulse Ox 95 08/25/20 23:10 Laboratory Results - last 24 hr 08/22/20 08/25/20 08/25/20 19:22 06:43 06:43 WBC 4.72 D RBC 3.79 L Hgb 12.8 L Hct 37.0 L MCV 97.6 H MCH 33.8 H MCHC 34.6 RDW 12.1 Plt Count 237 MPV 10.2 Immature Gran % 0.2 Neutrophils % 50.7 Lymphocytes % 21.0 Monocytes % 23.9 Eosinophils % 4.0 Basophils % 0.2 Nucleated RBC % 0 Absolute Neutrophils 2.39 Absolute Lymphocytes 0.99 L Absolute Monocytes 1.13 H Absolute Eosinophils 0.19 Absolute Basophils 0.01 VBG Lactate Sodium 138 Potassium 3.1 L Chloride 100 Carbon Dioxide 30.9 Anion Gap 7.1 BUN 11 D Creatinine 0.84 Estimated GFR/1.73 m2 >= 60.00 Glucose 96 Calcium 8.9 Total Bilirubin 0.7 AST 22 ALT 19 Alkaline Phosphatase 57 C-Reactive Protein Total Protein 7.2 Albumin 3.3 L Procalcitonin SARS-CoV-2 Source Nasal/nares SARS-CoV-2 (PCR) Not detected 08/25/20 08/25/20 08/25/20 14:09 14:09 14:09 WBC 7.43 D RBC 4.03 L Hgb 13.6 Hct 39.9 L MCV 99.0 H MCH 33.7 H MCHC 34.1 RDW 11.9 Plt Count 248 MPV 9.1 Immature Gran % 0.3 Neutrophils % 53.1 Lymphocytes % 24.5 Monocytes % 19.9 Eosinophils % 1.9 Basophils % 0.3 Nucleated RBC % 0 Absolute Neutrophils 3.95 Absolute Lymphocytes 1.82 Absolute Monocytes 1.48 H Absolute Eosinophils 0.14 Absolute Basophils 0.02 VBG Lactate 0.7 Sodium 131 L Potassium 3.7 Chloride 96 L Carbon Dioxide 30.8 Anion Gap 4.2 BUN 12 Creatinine 0.95 Estimated GFR/1.73 m2 >= 60.00 Glucose 98 Calcium 8.7 Total Bilirubin 0.6 AST 22 ALT 20 Alkaline Phosphatase 62 C-Reactive Protein Total Protein 7.8 Albumin 3.6 Procalcitonin SARS-CoV-2 Source SARS-CoV-2 (PCR) 08/25/20 08/25/20 08/26/20 14:09 14:09 06:27 WBC 6.14 RBC 3.72 L Hgb 12.6 L Hct 36.8 L MCV 98.9 H MCH 33.9 H MCHC 34.2 RDW 11.9 Plt Count 241 MPV 10.0 Immature Gran % 0.2 Neutrophils % 84.8 Lymphocytes % 11.4 Monocytes % 3.6 Eosinophils % 0.0 Basophils % 0.0 Nucleated RBC % 0 Absolute Neutrophils 5.21 Absolute Lymphocytes 0.70 L Absolute Monocytes 0.22 Absolute Eosinophils 0.00 Absolute Basophils 0.00 VBG Lactate Sodium Potassium Chloride Carbon Dioxide Anion Gap BUN Creatinine Estimated GFR/1.73 m2 Glucose Calcium Total Bilirubin AST ALT Alkaline Phosphatase C-Reactive Protein 5.52 H Total Protein Albumin Procalcitonin < 0.1 SARS-CoV-2 Source SARS-CoV-2 (PCR)
[2020-08-26 07:24] LABS: ALT 17 U/L (16-63); Alkaline Phosphatase 53 U/L (46-116); Anion Gap 7.5 mmol/L (3-11); BUN 12 mg/dL (7-18); Bilirubin, Total 0.5 mg/dL (0.2-1.0); C-Reactive Protein 3.06 mg/dL (0.0-0.3); CO2 26.5 mmol/L (21.0-32.0); CREATININE 0.79 mg/dL (0.70-1.30); Chloride 101 mmol/L (98-107); Glucose 136 mg/dL (74-106); Magnesium 1.5 mg/dL (1.8-2.4); Potassium 3.9 mmol/L (3.5-5.1); Sodium 135 mmol/L (136-145); Total Protein 6.8 g/dL (6.4-8.2)
[2020-08-26 07:33] LABS: AST 17 U/L (15-37)
[2020-08-26 07:46] VITALS: BP 105/53; PULSE 75; RESP 19; TEMP 36.9; O2SAT 94
--- NOTE | 2020-08-26 07:48 | W.PM.PROGNOT ---
Date of Service Date of service: 08/26/20 Time of Service: 07:48 Assessment and Plan Assessment and plan (1) Small bowel obstruction: Status: Acute Assessment and plan: Resolved Continue clear liquids (2) Crohn disease: Status: Chronic Assessment and plan: IV Methylprednisolone started at 30 mg IV BID This will be transitioned to PO for d/c Qualifiers: Gastrointestinal tract location: small intestine Digestive disease complication type: without complication Qualified Code(s): K50.00 - Crohn's disease of small intestine without complications (3) Gastritis: Status: Acute Assessment and plan: Continue with protonix 40 mg BID and Carafate AC and HS Will need follow up with his GI Dr. at [facility] upon discharge. Qualifiers: Gastritis type: unspecified gastritis Chronicity: acute Gastritis bleeding: presence of bleeding unspecified Qualified Code(s): K29.00 - Acute gastritis without bleeding Subjective Subjective Interval history since last seen: Patient reports that he is feeling better today. Continues to have crampy abdominal pain. Of note he reports his stoma was swollen and prolapsed last night when he was changing his bag. Exam Const General: cooperative, healthy appearing and comfortable Orientation: alert and oriented x3 Resp Effort & Inspection: normal respiratory effort, no audible wheezes and no cough GI Palpation: soft, no guarding and tender Auscultation: normal bowel sounds Objective Last Vital Signs Temp 36.9 C 08/26/20 07:46 Pulse 75 08/26/20 07:46 Resp 19 08/26/20 07:46 BP 105/53 L 08/26/20 07:46 Pulse Ox 94 08/26/20 07:46 Laboratory Results - last 24 hr 08/22/20 08/25/20 08/25/20 19:22 06:43 14:09 WBC RBC Hgb Hct MCV MCH MCHC RDW Plt Count MPV Immature Gran % Neutrophils % Lymphocytes % Monocytes % Eosinophils % Basophils % Nucleated RBC % Absolute Neutrophils Absolute Lymphocytes Absolute Monocytes Absolute Eosinophils Absolute Basophils VBG Lactate 0.7 Sodium 138 Potassium 3.1 L Chloride 100 Carbon Dioxide 30.9 Anion Gap 7.1 BUN 11 D Creatinine 0.84 Estimated GFR/1.73 m2 >= 60.00 Glucose 96 Calcium 8.9 Magnesium Total Bilirubin 0.7 AST 22 ALT 19 Alkaline Phosphatase 57 C-Reactive Protein Total Protein 7.2 Albumin 3.3 L Procalcitonin SARS-CoV-2 Source Nasal/nares SARS-CoV-2 (PCR) Not detected 08/25/20 08/25/20 08/25/20 14:09 14:09 14:09 WBC 7.43 D RBC 4.03 L Hgb 13.6 Hct 39.9 L MCV 99.0 H MCH 33.7 H MCHC 34.1 RDW 11.9 Plt Count 248 MPV 9.1 Immature Gran % 0.3 Neutrophils % 53.1 Lymphocytes % 24.5 Monocytes % 19.9 Eosinophils % 1.9 Basophils % 0.3 Nucleated RBC % 0 Absolute Neutrophils 3.95 Absolute Lymphocytes 1.82 Absolute Monocytes 1.48 H Absolute Eosinophils 0.14 Absolute Basophils 0.02 VBG Lactate Sodium 131 L Potassium 3.7 Chloride 96 L Carbon Dioxide 30.8 Anion Gap 4.2 BUN 12 Creatinine 0.95 Estimated GFR/1.73 m2 >= 60.00 Glucose 98 Calcium 8.7 Magnesium Total Bilirubin 0.6 AST 22 ALT 20 Alkaline Phosphatase 62 C-Reactive Protein Total Protein 7.8 Albumin 3.6 Procalcitonin < 0.1 SARS-CoV-2 Source SARS-CoV-2 (PCR) 08/25/20 08/26/20 08/26/20 14:09 06:27 06:27 WBC 6.14 RBC 3.72 L Hgb 12.6 L Hct 36.8 L MCV 98.9 H MCH 33.9 H MCHC 34.2 RDW 11.9 Plt Count 241 MPV 10.0 Immature Gran % 0.2 Neutrophils % 84.8 Lymphocytes % 11.4 Monocytes % 3.6 Eosinophils % 0.0 Basophils % 0.0 Nucleated RBC % 0 Absolute Neutrophils 5.21 Absolute Lymphocytes 0.70 L Absolute Monocytes 0.22 Absolute Eosinophils 0.00 Absolute Basophils 0.00 VBG Lactate Sodium 135 L Potassium 3.9 Chloride 101 Carbon Dioxide 26.5 Anion Gap 7.5 BUN 12 Creatinine 0.79 Estimated GFR/1.73 m2 >= 60.00 Glucose 136 H Calcium 8.0 L Magnesium 1.5 L Total Bilirubin 0.5 AST 17 ALT 17 Alkaline Phosphatase 53 C-Reactive Protein 5.52 H 3.06 H Total Protein 6.8 Albumin 3.0 L Procalcitonin SARS-CoV-2 Source SARS-CoV-2 (PCR)
[2020-08-26] MEDS: Lidocaine 5% Patch 2 PATCH TP (08:50)
[2020-08-26] MEDS: Tamsulosin 0.4 MG CAPCR PO (08:50)
[2020-08-26] MEDS: Lisinopril 10 MG TAB PO (08:50)
--- NOTE | 2020-08-26 11:19 | W.NUTCONSULT ---
Date of service: 08/26/20 Time of Service: 11:19 Nutritional Consult ASSESSMENT: 65 year old male admitted with gastritis, Crohn's flare up, with SBO, hx of ileoostomy, RA and B12 Deficiency. Now on IV steriods and clear liquid diet. Tolerating clear liquids and supplemented with ensure clears TID providing additional 600 kcal, 24 grams protein. BMI wnl and stable > 1 year. Appears well nourished prior to this admission. Estimated Needs: 6720-7422 kcal, 70-80 grams protein, 1900 ml fluid. Unable to meet with pt today, busy with nursing. Will follow up tomorrow. NUTRITIONAL DIAGNOSIS: Inadequate nutrient intake due to altered GI function INTERVENTION: clear liquid diet, supplemented with ensure clear TID, advance as tolerated MONITORING AND EVALUATION: diet tolerance, po intake, labs, weight. Time Spent in Nutritional Counseling and Treatment: 0 time
[2020-08-26] MEDS: Acetaminophen 500 MG TAB 1000 MG PO ×2 (14:13→21:39)
[2020-08-26 16:28] VITALS: BP 102/51; PULSE 51; RESP 17; TEMP 36.6; O2SAT 99
[2020-08-26] MEDS: Enoxaparin 40 MG/0.4 ML SYR SC (16:35)
--- NOTE | 2020-08-26 18:28 | CMPROGNOTE_ITS ---
- If Service Date Differs Date of service: 08/26/20 Time of Service: 18:28 Care Management Progress Note S/O: Arturo was walking the halls today, CM passed him several times. He was not in the room when CM attempted to meet with him. Per report, he may be ready for discharge tomorrow, as he is tolerating clear liquids and his ostomy is functioning. CM will continue to follow. A: 65 year old male admitted to [facility] 08/22/20 for SBO P: Anticipate Arturo will return home with no additional services once medically cleared. He will be driven home via private vehicle by family. He will follow up with his PCP and discharge plan of care. CM will continue to follow.
[2020-08-26] MEDS: Normal Saline 1,000 ML 100 ML IV (18:55)
[2020-08-26] MEDS: Lidocaine Patch Removal 2 EACH TD (21:41)
[2020-08-27 00:45] VITALS: BP 94/53; PULSE 60; RESP 16; TEMP 36.9; O2SAT 96
[2020-08-27] MEDS: Normal Saline Flush 10 ML SYR IVP (02:25)
[2020-08-27] MEDS: methylPREDNISolone SUCC 40 MG VIAL 30 MG IVP (02:26)
[2020-08-27] MEDS: Pantoprazole 40 MG VIAL IVP (02:27)
[2020-08-27] MEDS: Sucralfate 1 GM TAB PO ×2 (04:40→10:11)
[2020-08-27] MEDS: Normal Saline 1,000 ML 100 ML IV (04:40)
[2020-08-27] MEDS: Acetaminophen 500 MG TAB 1000 MG PO (06:26)
[2020-08-27 07:49] VITALS: BP 121/61; PULSE 62; RESP 17; TEMP 36.1; O2SAT 96
--- NOTE | 2020-08-27 07:49 | DSE_ITS ---
Date of service: 08/27/20 Time of Service: 07:49 DS: Diagnosis Discharge Diagnosis (1) Small bowel obstruction: Status: Acute (2) Crohn disease: Status: Chronic (3) Gastritis: Status: Acute Discharge Plan Disposition Patient Disposition: HOME Condition: Stable Discharge Details Reason For Visit: SMALL BOWEL OBSTRUCTION Admit Date/Time: 08/22/20 18:47 Admit Provider: Bisi Haque Attending Provider: Bisi Haque Primary Care Provider: Nabila Rodriguez Hospital Course Hospital Course: This 65 year old man with history of Crohns disease s/p proctocolectomy with end ileostomy presented to the ER night (08/22) with complaints of abdominal pain and decreased ostomy output. He did not have any significant output from the ostomy since 0 the morning of admission. He had no results with irrigation of the ostomy which he states usually works. He complained of Nausea but no vomiting. His will have intermittent obstructions that resolve at home. His last admission was in 2017 and the obstruction took several days to resolve. He was treated with NG decompression and NPO status. His NG output decreased dramatically Wednesday and he started to have output from the ileostomy as well as air. His NG tube was removed on Wednesday morning. He was started on clear liquids. The following day he had increased pain and low grade fever. The ostomy was still functioning. Repeat CT scan of the abdomen pelvis showed improvement of the small bowel obstruction with oral contrast going into the ostomy bag but there was some concern for increased inflammation of the small bowel. This was discussed with his providers at [facility] who advised starting IV steroids. The patient was started on hydrocortisone and also had his Protonix increased and Carafate added. These measures definitely helped. Over the next few days his diet was advanced to soft. On the day of discharge he was feeling well. He was tolerating a soft diet. He had not used narcotic pain medications for approximately 24 hours. His ostomy was functioning well. His abdominal examination was benign. Follow up with his Copy Worker at [facility] and his PCP Home Meds and New Rx's Prescriptions: New prednisone 20 mg tablet 40 mg PO DAILY Qty: 60 RF: 0 sucralfate 1 gram tablet 1 g PO QACHS Qty: 120 RF: 0 pantoprazole [Protonix] 40 mg tablet,delayed release (DR/EC) 40 mg PO BID Qty: 60 RF: 0 Continued tramadol 50 mg tablet 50 mg PO TID MDD 150 mg PRN (Reason: pain) Qty: 50 RF: 2 diclofenac sodium [Voltaren] 1 % gel 2 gm Topical QID PRN (Reason: pain) Qty: 3 RF: 3 lidocaine 5 % adhesive patch,medicated 2 patch TP DAILY Qty: 180 RF: 3 cholecalciferol (vitamin D3) [Vitamin D3] 50 mcg (2,000 unit) tablet 4,000 unit PO DAILY Qty: 180 RF: 3 lisinopril 10 mg tablet 10 mg PO DAILY Qty: 90 RF: 3 diphenoxylate-atropine [Lomotil] 2.5-0.025 mg tablet 3 tab PO TID PRN (Reason: diarrhea) Qty: 810 RF: 3 multivitamin [Multiple Vitamins] 1 EACH tablet 1 ea PO DAILY RF: 0 acetaminophen [Acetaminophen Extra Strength] 500 MG tablet 2 tab PO Q8H PRN RF: 0 calcium carbonate 500 MG tablet 500 mg PO DAILY RF: 0 Humira Pen Xeuo-[id number]-[id number] HS 40 mg/0.8 mL pen injector kit 40 mg subcut .EVERY OTHER WEEK RF: 0 tamsulosin [Flomax] 0.4 mg capsule 0.4 mg PO DAILY Qty: 90 RF: 3 (DME) Stomahesive Skin Barrier Misc See Rx Instructions .ROUTE .MEDSUPPLY Qty: 2 RF: 11 (DME) Adhesive Remover Wipes Swab See Rx Instructions .ROUTE .MEDSUPPLY Qty: 50 RF: 11 (DME) Drainable Pouch Misc See Rx Instructions .ROUTE .MEDSUPPLY Qty: 2 RF: 11 Xeljanz XR 11 mg tablet extended release 24 hr 11 mg PO Q24H RF: 0 atorvastatin 40 mg tablet 40 mg PO DAILY Qty: 90 RF: 3 cyanocobalamin (vitamin B-12) 1,000 mcg/mL solution 1,000 mcg IM MONTHLY Qty: 3 RF: 3 (DME) ostomy supplies [Stomahesive Protective] Powder See Rx Instructions .ROUTE .MEDSUPPLY Qty: 28.3 RF: 3 (DME) insulin syringes (disposable) 1 mL syringe See Rx Instructions .ROUTE .MEDSUPPLY Qty: 12 RF: 0 Discontinued pantoprazole [Protonix] 20 mg tablet,delayed release (DR/EC) 40 mg PO DAILY Qty: 180 RF: 3 Discharge Instructions Additional Instructions: Keep diet soft/low residue Call for increased pain, vomiting, lack of ostomy output 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 the next 1-2 weeks Stand Alone Forms: Nursing Discharge Form Referrals: Ankit Becker [ [facility] STAFF PHYSICIAN] - Nabila Rodriguez NP [Primary Care Provider] - Activity:: Activity as Tolerated Equipment/Supplies:: No Equipment Needed Diet:: As Tolerated Discharge Orders Discharge Orders: Discharge Order (Routine); Ordered 08/27/20 Ordered By: Bisi Haque DS: Summary Status at Discharge Functional status at discharge: independent ambulation Overall status at discharge: patient is back to baseline Mental Status: mental status grossly normal Speech and Movement: speech and movement normal Mood: congruent mood Affect: normal affect Exam Psych Mental Status: mental status grossly normal Speech and Movement: speech and movement normal Mood: congruent mood Affect: normal affect DS: Data Vitals/I&O Vitals and I&O: Vital Signs Temperature 98.4 F 08/27/20 00:45 Temperature Source Skin 08/27/20 00:45 Pulse 60 08/27/20 00:45 Pulse Rhythm Regular 08/27/20 00:45 Respiratory Rate 16 08/27/20 00:45 Respiratory Effort 08/27/20 00:45 Respiratory Depth Normal 08/27/20 00:45 Respiratory Pattern Normal 08/27/20 00:45 Blood Pressure 94/53 L 08/27/20 00:45 Blood Pressure Mean 76 08/22/20 19:16 Blood Pressure Position Supine 08/22/20 15:58 Pulse Oximetry 96 08/27/20 00:45 Oxygen Delivery Method Room Air 08/27/20 00:45 Oxygen Flow Rate 0 08/27/20 00:45 Pain Level 3 08/27/20 06:26 Comment 08/25/20 23:10 Intake & Output 08/26/20 08/26/20 08/27/20 11:59 23:59 11:59 Intake Total 2360 / 4837.5 2477.5 / 4837.5 1175 / 1175 Output Total 200 / 200 1525 / 1525 Balance 2160 / 4637.5 2477.5 / 4637.5 -350 / -350 Intake: IV 1999.5 927.5 / 2927.5 975 / 975 Oral 360 / 1910 1550 / 1910 200 / 200 Output: Urine 675 / 675 Stool 200 / 200 850 / 850 Other: Urine Color Yellow Urine Appearance Clear Clear Urine Odor Normal Comment pt voids independentl PT ALSO STATED VOIDED ONE OTHER TIME DURING THE NOC pt denies abnormal symptoms Stool Characteristics Liquid Voiding Methods Urinal Urinal [facility] Medical History Bowel obstruction (11/02/14) BPH without urinary obstruction (06/16/13) Chronic daily headache Chronic low back pain with right-sided sciatica (05/25/18) Chronic pain (11/02/11) 11/27 low risk; neg comorbid psych. Crohn's disease with complication (11/02/11) Dr. Heaton [facility] GI S/p 4 SB resections with an ileostomy (placed 2002) Ongoing intermittent SBO relieved with flusing red rubber catheter 11/28/15 recurrent SBO [facility] Degeneration of lumbar intervertebral disc (03/29/13) recurrent L4-[address] Chowdary [facility] spine clinic; spondolysis lumbar RF Rx [facility] 10/2012; 12/28/14 thoracic laminectomy and spinal cord stimulator Erectile dysfunction Headache High serum high density lipoprotein (HDL) (04/26/18) 03/2020: good response to statin therapy, continue History of FL (myocardial infarction) 03/08/2019 nuclear stress test (carried out for new LAFB): no reversible ischemia, however, a small sized, moderately intense, fixed defect involving the apical wall(s). This suggests small myocardial infarction vs. imaging artifact. --> discussed statin and aspirin with pt --> pt will think about statin and cannot take aspirin due to development of many stomach ulcers on baby aspirin in the past IFG (impaired fasting glucose) (04/26/18) Ileostomy in place Multiple gastric ulcers (12/21/14) 03/28/2015 EGD: normal OA (osteoarthritis) Osteopenia (12/20/13) FRAX risk: 6.8%/1.1% osteop/hip; VitD insuff DEXA 08/25/16 WNL Rheumatoid arthritis [facility] Rheumatology Vitamin B 12 deficiency Vitamin D deficiency Surgical History S/P proctocolectomy S/P small bowel resection thoracic laminectomy/spinal cord stimulator (12/28/14) Family History Mother , COPD COPD (chronic obstructive pulmonary disease) Father COPD (chronic obstructive pulmonary disease) Dementia Social History Smoking/Tobacco Use Status: Former Tobacco Use Smoking risk assessment performed?: Yes Alcohol Intake: current Alcohol Intake frequency: holidays/special occasions only Drug use: Never Substance use type: does not use Adopted: Yes (Adopted by father) Caregiver/Support person: No Foster care: No Household members: spouse Number of Children: 1 Communication Needs: None Pets and animals: Yes Pets and animals: cat(s) Sexually active: Yes Current gender identity: male What type of physical activity do you participate in: walking Duration: 60-90 minutes/day Frequency: daily Seatbelt use: always Helmet use: Yes Drive intox or ride w/intox class b driver: No Water heater temp set <120 deg: No (comes off wood stove) Working smoke detector in home: Yes Fire extinguisher in home: Yes Carbon monox detector in home: Yes Firearms in home: Yes Firearms unloaded and locked: Yes Do you feel safe at home: Yes Do you feel safe in your relationship?: Yes
[2020-08-27] MEDS: Lisinopril 10 MG TAB PO (08:10)
[2020-08-27] MEDS: Lidocaine 5% Patch 2 PATCH TP (08:11)
[2020-08-27] MEDS: Tamsulosin 0.4 MG CAPCR PO (08:11)
[2020-08-27] MEDS: traMADol 50 MG TAB PO (08:17)
--- NOTE | 2020-08-27 12:22 | PDOC.CMDIS ---
- If Service Date Differs Date of service: 08/27/20 Time of Service: 12:22 LACE Index Scoring Tool - Questions: Length of Stay (in days): 4 - 6 Acuity (Admit via E.D.?): Yes Comorbidities: Previous M.I. E.D. Visits: 1 - Answers: Total Score: 9 Risk of Readmission: Low Risk Care Management Discharge Reason for Hospitalization: SBO Discharge Plan: Arturo will return home with no additional services at this time. His will drive him home via private vehicle when ready. He will follow up with his PCP and discharge plan of care. He is happy to be going home. Patient/Family Education Needs: Review discharge instructions regarding activity levels and medications, discussion of self care needs including ask me three.
== END 2020-08-27 12:25 | disposition home or self-care (01) | DRG 389 ==
LOC: ER 19:03 → MS 19:41
PROVIDERS: Surgery; Admitting Provider Surgery; Emergency Provider Student in an Organized Health Care Education/Training Program; PCP Nurse Practitioner Family; Visit Provider Surgery
DX: K56.609 Unspecified intestinal obstruction, unspecified as to partial versus complete obstruction (principal); K91.2 Postsurgical malabsorption, not elsewhere classified; K50.00 Crohn's disease of small intestine without complications; K29.00 Acute gastritis without bleeding; E87.6 Hypokalemia; Z93.2 Ileostomy status; R51.9 Headache, unspecified; R73.01 Impaired fasting glucose; I25.2 Old myocardial infarction; M19.90 Unspecified osteoarthritis, unspecified site; E55.9 Vitamin D deficiency, unspecified; E53.8 Deficiency of other specified B group vitamins; Z87.891 Personal history of nicotine dependence; M06.9 Rheumatoid arthritis, unspecified; Z90.49 Acquired absence of other specified parts of digestive tract; M54.41 Lumbago with sciatica, right side; G89.29 Other chronic pain; Z87.11 Personal history of peptic ulcer disease; M85.859 Other specified disorders of bone density and structure, unspecified thigh
CPT/HCPCS: 36415; 71045; 80048; 80053; 83690; 84145; 96361; 96374; 96376; 99223; 99232; 99238; 99285; J1650; U0003; 74177; 83605; 83735; 85025; 86140; J0131; J1885; J2405; J3480; J3490; Q9967

== ENCOUNTER 2020-10-15 03:09 | Outpatient (CLI) | payer MEDICARE, BC, SELFPAY ==
[2020-10-16 14:50] LABS: COVID-19 RT-PCR UVMMC Result Negative (Negative)
== END 2020-10-15 03:29 ==
PROVIDERS: PCP Nurse Practitioner Family; Visit Provider Internal Medicine Gastroenterology
DX: Z11.59 Encounter for screening for other viral diseases (principal); Z01.818 Encounter for other preprocedural examination
CPT/HCPCS: U0003

== ENCOUNTER 2021-03-27 01:23 | Outpatient (CLI) | payer MEDICARE, BC, SELFPAY ==
--- NOTE | 2021-03-27 08:15 | DI.US_ITS ---
Exam(s) US SOFT TISSUE EXTREMITY EXAM: US SOFT TISSUE EXTREMITY CLINICAL HISTORY: Posterior R knee pain/swell ?Myers's cyst vs.other,M25.561,M25.461. TECHNIQUE: Ultrasound was performed using standard protocol. COMPARISON: No exams were available for comparison FINDINGS: Sonographic assessment utilizing grayscale and color Doppler imaging was performed and targeted to th e area of clinical concern. A Myers's cyst is noted measuring 3.5 x 0.8 x 2.8 cm. There is no evidence of rupture. No lipoma or suspicious masses seen. IMPRESSION: Small Myers's cyst. DATA REPOSITORY:
== END 2021-03-27 01:43 ==
PROVIDERS: PCP Nurse Practitioner Family; Visit Provider Nurse Practitioner Family
DX: M25.561 Pain in right knee (principal); M71.21 Synovial cyst of popliteal space [Baker], right knee
CPT/HCPCS: 76881

== ENCOUNTER 2021-04-08 03:07 | Outpatient (CLI) | payer MEDICARE, BC, SELFPAY ==
[2021-04-08 07:39] LABS: Abs Immature Grans 0.01 10^3/uL (0.0-0.06); Absolute Basophil Count 0.05 10^3/uL (0.0-0.2); Absolute Eosinophil Count 0.19 10^3/uL (0.0-0.7); Absolute Monocyte Count 0.76 10^3/uL (0.1-0.8); Absolute Neutrophil Count 3.53 10^3/uL (1.2-6.7); Basophils % 0.7; Eosinophils % 2.8; HCT 39.4 % (40.0-50.0); HGB 13.3 g/dL (13.5-17.5); Immature Grans % 0.1; Lymphocytes % 32.6; MCH 33.1 pg (27.0-33.0); MCHC 33.8 % (32.0-36.0); Monocytes % 11.3; Neutrophils % 52.5; Nucleated RBC 0 %; Platelet Count 274 10^3/uL (130-400); RBC 4.02 10^6/uL (4.36-5.78); RDW 11.7 % (11.8-14.1); RDW-SD 42.8 fL; WBC 6.74 10^3/uL (4.4-10.8)
[2021-04-08 08:51] LABS: ALT 27 U/L (16-63); AST 22 U/L (15-37); Albumin 3.9 g/dL (3.4-5.0); Alkaline Phosphatase 67 U/L (46-116); Bilirubin, Direct 0.2 mg/dL (0.0-0.2); Bilirubin, Total 0.7 mg/dL (0.2-1.0); Total Protein 7.5 g/dL (6.4-8.2)
[2021-04-11 08:23] LABS: Adalimumab QN with Reflex Ab 6.6 mcg/mL
[2021-04-17 09:57] LABS: Adalimumab Ab <10.0 AU/mL (<14.0)
== END 2021-04-08 03:08 | disposition home or self-care (01) ==
LOC: LBO 03:07
PROVIDERS: PCP Nurse Practitioner Family; Visit Provider Internal Medicine Gastroenterology
DX: K50.018 Crohn's disease of small intestine with other complication (principal)
CPT/HCPCS: 36415; 80076; 83520; 85025

== ENCOUNTER 2021-05-16 11:13 | Outpatient (CLI) | payer MEDICARE, BC, SELFPAY ==
--- NOTE | 2021-05-16 10:00 | DI.RAD_ITS ---
Exam(s) XR KNEE RT 4V AP,LAT,JOJO,PAT EXAM: XR KNEE RT 4V AP,LAT,JOJO,PAT CLINICAL HISTORY: right knee pain. TECHNIQUE: 2D digital imaging was performed. COMPARISON: CR RIGHT KNEE LIMITED 1 OR 2 VIEW from 04/07/2013 CR RIGHT KNEE LIMITED 1 OR 2 VIEW from 04/07/2013 CR ABD FLAT UPRIGHT PA CHEST from 11/28/2015 FINDINGS: BONES: No acute fracture is present. No bony destructive lesion is seen. Postsurgical changes are aga in seen in the knee. Small osteophytes are seen in the posterior patella. JOINTS: There are marked degenerative changes of the knee which have progressed since the prior exami nation. There is marked narrowing of the medial femoral tibial joint space. Chondrocalcinosis is pr esent. The femur is slightly medially located relative to the tibial plateau. This appears slightly progressed since the prior examination. Small joint effusion is present. SOFT TISSUE: Normal. IMPRESSION: Progressive marked degenerative changes of the right knee. DATA REPOSITORY: RADIATION DOSE DELIVERED:
== END 2021-05-16 11:14 | disposition home or self-care (01) ==
LOC: DIORS 11:14
PROVIDERS: PCP Nurse Practitioner Family; Referring Provider Nurse Practitioner Family; Visit Provider Student in an Organized Health Care Education/Training Program
DX: M25.461 Effusion, right knee (principal); M25.561 Pain in right knee
CPT/HCPCS: 20610; 99213; 73564; J1040

== ENCOUNTER 2021-08-15 03:30 | Outpatient (CLI) | payer MEDICARE, BC, SELFPAY ==
[2021-08-15 09:11] LABS: Abs Immature Grans 0.02 10^3/uL (0.0-0.06); Absolute Basophil Count 0.05 10^3/uL (0.0-0.2); Absolute Eosinophil Count 0.28 10^3/uL (0.0-0.7); Absolute Monocyte Count 0.79 10^3/uL (0.1-0.8); Absolute Neutrophil Count 3.55 10^3/uL (1.2-6.7); Basophils % 0.7; Eosinophils % 4.1; HGB 13.5 g/dL (13.5-17.5); Immature Grans % 0.3; Lymphocytes % 30.9; MCHC 33.8 % (32.0-36.0); MCV 100.8 fL (80-95); Monocytes % 11.6; Neutrophils % 52.4; Nucleated RBC 0 %; Platelet Count 290 10^3/uL (130-400); RBC 3.97 10^6/uL (4.36-5.78); RDW 11.9 % (11.8-14.1); RDW-SD 44.6 fL; WBC 6.79 10^3/uL (4.4-10.8)
[2021-08-15 09:19] LABS: Hemoglobin A1C 5.3 % (<5.7)
[2021-08-15 10:12] LABS: ALT 32 U/L (16-63); AST 27 U/L (15-37); Albumin 3.8 g/dL (3.4-5.0); Alkaline Phosphatase 62 U/L (46-116); Anion Gap 7.4 mmol/L (3-11); BUN 12 mg/dL (7-18); Bilirubin, Total 0.5 mg/dL (0.2-1.0); CO2 28.6 mmol/L (21.0-32.0); CREATININE 0.9 mg/dL (0.70-1.30); Calcium 8.7 mg/dL (8.5-10.1); Calculated LDL 36 mg/dL (<100); Chloride 105 mmol/L (98-107); Cholesterol 135 mg/dL (<200); Glucose 97 mg/dL (74-106); HDL Cholesterol 89 mg/dL (40-60); Magnesium 1.1 mg/dL (1.8-2.4); Potassium 4.2 mmol/L (3.5-5.1); Sodium 141 mmol/L (136-145); Total Protein 7.2 g/dL (6.4-8.2); Triglyceride 50 mg/dL (<150); Vitamin B12 611 pg/mL (193-986)
[2021-08-18 01:49] LABS: Vitamin D 25 Total 9.1 ng/mL (30-100)
== END 2021-08-15 03:31 | disposition home or self-care (01) ==
LOC: LBO 03:31
PROVIDERS: PCP Nurse Practitioner Family; Visit Provider Nurse Practitioner Family
DX: E78.5 Hyperlipidemia, unspecified; E55.9 Vitamin D deficiency, unspecified; E83.42 Hypomagnesemia; E53.8 Deficiency of other specified B group vitamins; R73.01 Impaired fasting glucose; I10 Essential (primary) hypertension; Z51.81 Encounter for therapeutic drug level monitoring
CPT/HCPCS: 36415; 80053; 80061; 82306; 82607; 83036; 83735; 85025

== ENCOUNTER 2021-09-18 14:24 | Outpatient (CLI) | payer MEDICARE, BC, SELFPAY ==
--- NOTE | 2021-09-18 13:45 | DI.RAD_ITS ---
Exam(s) XR STANDING ALIGNMENT EXAM: XR STANDING ALIGNMENT CLINICAL HISTORY: PRE OP R TKA. TECHNIQUE: 2D digital imaging was performed. COMPARISON: No exams were available for comparison FINDINGS: There is a healed midshaft fracture of the right femur. Advanced narrowing of the medial compartment of the right knee is noted. Evidence of previous right knee ACL surgery and there is also a large orthopedic staple device in the medial femoral condyle rig ht knee. Advanced narrowing of the medial compartment of the right knee is noted. Lesser narrowing of the lateral compartment but there is chondrocalcinosis in the lateral compartment of the right kne e evident. There are no obvious degenerative changes in the left knee. However, there is sclerotic densities in the distal left femur and proximal left tibia which probably represent bone infarcts. There is dystrophic calcification above the greater trochanter of the right hip which is related to p reviously present intramedullary juan f. There are mild degenerative changes in the right hip. No dege nerative changes in the left hip. Sacroiliac joints appear unremarkable. Left ankle unremarkable. There is narrowing of the medial aspect of the right ankle-tibiotalar joint . There are no osteochondral defects of the talar dome. No osseous lytic lesions. Sacroiliac joint s appear unremarkable. Left buttock epidural stimulator noted. IMPRESSION: DATA REPOSITORY: RADIATION DOSE DELIVERED:
--- NOTE | 2021-09-18 13:45 | DI.RAD_ITS ---
Exam(s) XR KNEE RT 1V EXAM: XR KNEE RT 1V CLINICAL HISTORY: PRE OP R TKA. TECHNIQUE: 2D digital imaging was performed. COMPARISON: CR XR KNEE RT 4V AP,LAT,JOJO,PAT from 05/16/2021 FINDINGS: Single lateral view of right paired 05/16/2021 There is evidence of previous ACL surgery and surgical staple medial femoral condyle. There is advan carlos [id number] narrowing of the medial compartment. Also significant degenerative changes in the l ateral compartment as well as chondrocalcinosis. Moderate degenerative changes in the patellofemoral compartment. Small joint effusion IMPRESSION: Previous surgery. Advanced degenerative changes. DATA REPOSITORY: RADIATION DOSE DELIVERED:
== END 2021-09-18 14:25 | disposition home or self-care (01) ==
LOC: DIORS 14:24
PROVIDERS: PCP Nurse Practitioner Family; Referring Provider Nurse Practitioner Family
DX: M17.11 Unilateral primary osteoarthritis, right knee (principal); Z01.818 Encounter for other preprocedural examination
CPT/HCPCS: 73560; 77073

== ENCOUNTER 2021-09-29 03:24 | Outpatient (CLI) | payer MEDICARE, BC, SELFPAY ==
[2021-09-29 10:01] LABS: HCT 41.5 % (40.0-50.0); HGB 13.6 g/dL (13.5-17.5); MCH 33.3 pg (27.0-33.0); MCHC 32.8 % (32.0-36.0); MCV 101.7 fL (80-95); MPV 9.3 fL (8.0-11.0); Platelet Count 283 10^3/uL (130-400); RBC 4.08 10^6/uL (4.36-5.78); RDW 11.9 % (11.8-14.1); RDW-SD 45.2 fL
[2021-09-29 10:29] LABS: Anion Gap 7.1 mmol/L (3-11); BUN 18 mg/dL (7-18); CO2 27.9 mmol/L (21.0-32.0); CREATININE 0.9 mg/dL (0.70-1.30); Calcium 8.8 mg/dL (8.5-10.1); Chloride 102 mmol/L (98-107); Glucose 122 mg/dL (74-106); Potassium 3.9 mmol/L (3.5-5.1); Sodium 137 mmol/L (136-145)
[2021-09-29 16:09] LABS: Source Nasal/Nares
[2021-09-29 21:46] LABS: COVID-19 PCR Negative (Negative)
== END 2021-09-29 03:25 | disposition home or self-care (01) ==
LOC: LBO 03:24
PROVIDERS: PCP Nurse Practitioner Family; Visit Provider Student in an Organized Health Care Education/Training Program
DX: M17.11 Unilateral primary osteoarthritis, right knee (principal); Z01.818 Encounter for other preprocedural examination; Z20.822 Contact with and (suspected) exposure to COVID-19
CPT/HCPCS: 36415; 80048; 85027; 87635

== ENCOUNTER 2021-09-30 07:32 | Day surgery (SDC) | payer MEDICARE, BC, SELFPAY ==
[2021-09-30] VITALS (9 sets, daily range): BP systolic 108–126; BP diastolic 51–70; PULSE 43–57; RESP 10–16; TEMP 36.2–37.1; O2SAT 97–100; BMI 24.7
--- NOTE | 2021-09-30 07:55 | W.ANESPRE ---
General Info Date of Service Date Performed: 09/30/21 Height: 5 ft 6 in Weight: 69.6 kg Body Mass Index (BMI): 24.7 Surgical Procedure: Operation Date: 09/30/21 09:55 Proposed Procedures Side Surgeon p Knee Total Arthroplasty Right Franky Stafford MD Meds Allergies and Home Medications Allergies Allergy/AdvReac Type Severity Reaction Status Date / Time minocycline [Minocycline] Allergy Severe PER [facility] Verified 09/30/21 07:56 RECORDS ADDED 01/06/13 ketamine Allergy Unknown Pt Verified 09/30/21 07:56 reported like an out of body experience diltiazem HCl [From Cardizem] Allergy Verified 09/30/21 07:56 fluoxetine HCl [From Prozac] Allergy Verified 09/30/21 07:56 Penicillins Allergy itching, Verified 09/30/21 07:56 swelling of hands tetracycline [Tetracycline] Allergy tongue Verified 09/30/21 07:56 swelling aspirin AdvReac unable to Verified 09/30/21 07:56 take high dose d/t nose bleeds morphine AdvReac hallucinate Verified 09/30/21 07:56 Home Medication Medication Instructions Recorded acetaminophen [Acetaminophen Extra 2 tab PO Q8H PRN 12/21/12 Strength] calcium carbonate 500 mg PO DAILY 12/21/12 multivitamin [Multiple Vitamins] 1 ea PO DAILY 12/21/12 adalimumab 40 mg/0.8 mL 40 mg SUBCUT .EVERY OTHER WEEK 12/09/18 subcutaneous pen kit diclofenac sodium 1 % topical gel 2 gm TOPICAL QID PRN #3 tube 01/19/20 lidocaine 5 % topical patch 2 patch TP DAILY #180 each 01/19/20 insulin syringes (disposable) 1 mL #12 ea 12/26/20 lisinopril 10 mg tablet 10 mg PO DAILY #90 tab-cap 01/29/21 pantoprazole 40 mg tablet,delayed 40 mg PO BID #180 tab 06/12/21 release atorvastatin 40 mg tablet 40 mg PO DAILY #90 tab-cap 07/16/21 cyanocobalamin (vitamin B-12) 1,000 mcg IM MONTHLY #3 vial 07/16/21 1,000 mcg/mL injection solution tamsulosin 0.4 mg capsule 0.4 mg PO DAILY #90 tab-cap 07/16/21 colostomy bags #2 each 07/28/21 ostomy supplies #2 each 07/28/21 ostomy supplies #28.3 g 07/28/21 ostomy supplies #50 each 07/28/21 cholecalciferol (vitamin D3) 50 6,000 unit PO DAILY #270 tab-cap 08/28/21 mcg (2,000 unit) tablet diphenoxylate-atropine 2.5 2 tab PO QID PRN #720 tab MDD 20 08/28/21 mg-0.025 mg tablet mg diphenoxylate magnesium chloride 64 mg 128 mg PO DAILY #180 tab 08/28/21 (magnesium chloride) tablet,delayed release tofacitinib 11 mg tablet,extended 11 mg PO DAILY 08/28/21 release 24 hr tramadol 50 mg tablet 50 mg PO TID PRN #50 tab-cap MDD 09/04/21 150 mg Current Visit Medications: Current Medications Generic Name Dose Route Start Last Admin Trade Name Freq PRN Reason Stop Dose Admin Acetaminophen 1,000 mg 09/30/21 06:00 Acetaminophen 500 Mg Tab PO 09/30/21 16:00 PREOP GINA Celecoxib 400 mg 09/30/21 06:00 Celecoxib 200 Mg Cap PO 09/30/21 16:00 PREOP GINA Gabapentin 300 mg 09/30/21 06:00 Gabapentin 300 Mg Cap PO 09/30/21 16:00 PREOP GINA Tranexamic Acid 1,000 mg/ 60 mls @ 360 mls/hr 09/30/21 06:00 Sodium Chloride IVPB 09/30/21 16:00 PREOP GINA Tranexamic Acid 1,000 mg/ 60 mls @ 360 mls/hr 09/30/21 06:00 Sodium Chloride IVPB 09/30/21 16:00 DIRECTED GINA Ringer's Solution 1,000 mls @ 80 mls/hr 09/30/21 06:00 IV 10/29/21 23:59 INFUSION GINA Cefazolin Sodium/Dextrose 2 gm in 50 mls @ 100 mls/hr 09/30/21 06:00 Ancef Duplex IVPB 09/30/21 16:00 PREOP GINA IV Miscellaneous Supplies 1 each 09/30/21 06:00 Iv Access IV 10/29/21 23:59 DIRECTED GINA Sodium Chloride 0 ml 09/30/21 06:00 Normal Saline Flush 10 Ml Syr IV 10/29/21 23:59 PRN PRN Sodium Chloride 0 ml 09/30/21 06:00 Normal Saline 10 Ml Vial IJ 10/29/21 23:59 DIRECTED PRN Sterile Water 0 ml 09/30/21 06:00 Water,Injection,Sterile 10 Ml Vial IJ 10/29/21 23:59 DIRECTED PRN PFSH Active Problems Active Problems: Problem Status Onset Code Vitamin D deficiency E55.9 Erectile dysfunction N52.9 BPH without urinary obstruction 06/16/13 N40.0 Chronic low back pain with right-sided sciatica 05/25/18 M54.41, G89.29 Chronic pain 11/02/11 G89.29 Crohn's disease with complication 11/02/11 K50.919 Degeneration of lumbar intervertebral disc 03/29/13 M51.36 High serum high density lipoprotein (HDL) 04/26/18 R79.89 IFG (impaired fasting glucose) 04/26/18 R73.01 Osteopenia 12/20/13 M85.80 Rheumatoid arthritis M06.9 Essential hypertension ~02/20/19 I10 History of NH (myocardial infarction) I25.2 Arthritis of carpometacarpal (CMC) joint of left thumb M18.12 Arthritis of carpometacarpal (CMC) joint of right thumb M18.11 Vitamin B 12 deficiency E53.[address] Z93.2 Gastroesophageal reflux disease K21.9 Degenerative joint disease of right knee M17.11 Macrocytosis D75.89 Hypomagnesemia E83.42 Medical History Medical History (Updated 09/29/21 @ 11:17 by Rory Kang) Bowel obstruction (11/02/14) Chronic daily headache Multiple gastric ulcers (12/21/14) 03/28/2015 EGD: normal Neurostimulator device in situ Left throacic region per pt. Medical History Comments:: Pt has nerve stimulator implanted in back that is shut off currently. Surgical History Surgical History History [place]ophagogastrodu[place] [facility] [place]: [place]al erythema History of knee surgery PCL reconstruction Left lateral epicondylitis s/p debridement S/P proctocolectomy S/P small bowel resection Status post appendectomy Status post closed fracture of right femur internal fixation - which has been removed Status post ileostomy Status post laminectomy (~12/28/14) Lumbar laminectomy 1980;199512/28/14 thoracic laminectomy and spinal cord stimulator Status post tonsillectomy and adenoidectomy Tobacco Smoking/Tobacco Use Status: Former Tobacco Use Tobacco: How many years used: 4 Alcohol Alcohol Intake: current Alcohol intake frequency: holidays/special occasions only Substance Use Substance use: Never Substance use type: does not use Vital Signs and Lab Results Vital Signs Most Recent Vital Signs in EMR: Most Recent Vital Signs Temp Pulse Resp BP Pulse Ox 37.1 C 56 L 16 118/61 99 09/30/21 07:44 09/30/21 07:44 09/30/21 07:44 09/30/21 07:44 09/30/21 07:44 Lab Results Blood Type / Crossmatch: No Data to Display Complete Blood Count: White Blood Count 6.90 10^3/uL (4.4-10.8) 09/29/21 09:38 09/29/21 Red Blood Count 4.08 10^6/uL (4.36-5.78) L 09/29/21 09:38 09/29/21 Hemoglobin 13.6 g/dL (13.5-17.5) 09/29/21 09:38 09/29/21 Hematocrit 41.5 % (40.0-50.0) 09/29/21 09:38 09/29/21 Platelet Count 283 10^3/uL (130-400) 09/29/21 09:38 09/29/21 Complete Metabolic Panel: Sodium Level 137 mmol/L (136-145) 09/29/21 09:38 09/29/21 Potassium Level 3.9 mmol/L (3.5-5.1) 09/29/21 09:38 09/29/21 Chloride Level 102 mmol/L (98-107) 09/29/21 09:38 09/29/21 Carbon Dioxide Level 27.9 mmol/L (21.0-32.0) 09/29/21 09:38 09/29/21 Blood Urea Nitrogen 18 mg/dL (7-18) 09/29/21 09:38 09/29/21 Creatinine 0.9 mg/dL (0.70-1.30) 09/29/21 09:38 09/29/21 Estimated GFR/1.73 m2 >= 60.00 (mL/min/1.73m2) 09/29/21 09:38 09/29/21 Calcium Level 8.8 mg/dL (8.5-10.1) 09/29/21 09:38 09/29/21 Glucose Level 122 mg/dL (74-106) H 09/29/21 09:38 09/29/21 Liver Function Panel: No Data to Display Coagulation Panel: No Data to Display Cardiac Panel: No Data to Display Arterial Blood Gas: No Data to Display Venous Blood Gas: No Data to Display Pancreas Panel: No Data to Display Thyroid Panel: No Data to Display Infectious Disease: Coronavirus (COVID-19)(PCR) Negative (Negative) 09/29/21 10:16 09/29/21 Coronavirus 2019 Source Nasal/Nares 09/29/21 10:16 09/29/21 Blood Cultures: No Data to Display Toxicology Panel: No Data to Display Imaging and Studies Imaging and Studies Study information below may be from another EMR and interpreted by another provider. Please see original notes in EMR for more complete details. Stress Test Summary: 03/08/2019: Impressions: No reversible ischemia. Summary: 1. Myocardial perfusion imaging: The left ventricle is mildly dilated. There is a small sized, moderately intense, fixed defect involving the apical wall(s). This suggests small myocardial infarction vs. imaging artifact. 2. The calculated left ventricular ejection fraction after stress: 47%, visually 50-55%. LV global systolic function is low normal. No left ventricular regional motion abnormality. 3. Stress ECG conclusions: The stress ECG is indeterminate due to baseline IVCD/ atypical left bundle branch block. 4. Stress: Stress-induced atypical chest pain. Other Study Summary:: 06/01/2014 Impression 1. Unremarkable MRI thoracic spine. 2. Normal signal and caliber of the thoracic cord and conus which terminates at L1. 3. Postsurgical changes of the lower lumbar spine without significant PACS Images Study Result Glenny Lopez ( 1955 ) Printed by [employer]ENNY [employer]OHNSON ... Page 2 of 3 [email or web address] 09/30/2021 spinal canal stenosis. 4. Moderate bilateral L3-L4 and left L4-L5 neural foraminal stenosis. Anesthesia Assessment and Plan Anesthesia History Personal History: No History of Anesthesia Complications Family History: No Family History of Anesthesia Complications Exercise Tolerance Exercise Tolerance: Metabolic Equivalents>4 Pertinent Negatives Pertinent Negatives: No Symptoms of GERD, No Major Cardiovascular Symptoms or Complaints and No Major Pulmonary Symptoms or Complaints Cardiac & Pulmonary Exam Cardiac Exam: Normal S1/S2 Heart Sounds Pulmonary Exam: Clear Bilateral Breath Sounds Implantable Cardiac Device Does patient have a Pacemaker or an ICD?: No Airway Exam Known Difficult Airway: No Mallampati Class: 1 Mouth Opening: Normal (> 3cm) Thyromental Distance: Greater than 3 cm Facial Hair: Full D[place] Neck Range of Motion: Full ROM Neck Circumference: Normal Teeth Condition: Normal Dentition ASA Classification ASA Score: ASA 3 Emergency Case?: No NPO Status NPO Status: NPO Clears >2 hours, Solids >8 hours Anesthesia Plan Resuscitation Status: Full Code Anesthesia Technique: Spinal Anesthesia Airway Planned: Natural Airway Pain Management: Surgeon and patient request nerve block Monitors Used: Standard Monitors
[2021-09-30] MEDS: Acetaminophen 500 MG TAB 1000 MG PO (08:15)
[2021-09-30] MEDS: Gabapentin 300 MG CAP PO (08:15)
[2021-09-30] MEDS: Celecoxib 200 MG CAP 400 MG PO (08:15)
[2021-09-30] MEDS: Lactated Ringers 1,000 ML 80 ML IV (08:38)
[2021-09-30] MEDS: ceFAZolin 2 GM/50 ML BAG IVPB (09:05)
[2021-09-30] MEDS: Bupivacaine 0.25% Pres-Free 30 ML VIAL (09:47)
[2021-09-30] MEDS: Normal Saline 50 ML (09:49)
[2021-09-30] MEDS: Ketorolac 30 MG/ML VIAL (09:49)
--- NOTE | 2021-09-30 09:52 | W.ANESNERVE ---
Nerve Block Single Injection Procedure Date and Time Date Performed: 09/30/21 Procedure Start: 08:50 Location Where Procedure Performed Procedure Location: Day Surgery Unit Reason Performed: Postoperative Analgesia Requesting Provider: Rivera Timeout Performed Timeout Performed: Yes Monitoring Used ECG, Blood Pressure, SpO2 and See EMR for corresponding vital signs Sterility Sterility: Hand Hygiene, Surgical Cap, Surgical Mask, Sterile Gloves, Eye Protection and Chlorhexidine Sedation Given During Procedure Sedation Given (Indicate Dose Given): No Sedation given Patient Mental Status Patient Mental Status: Awake Nerve Block 1st Nerve Block: Laterality: Right Block Type: Adductor Canal Needle / Catheter Used: 100mm SonoPlex II Local Anesthetic Bolus (Indicate Dose Given): Lidocaine used for local infiltration of skin, Injected in 3-5ml increments after negative blood aspiration and Bupivacaine 0.25% Dose:: 14mL Additives (Indicate Dose Given): None Ultrasound: Sterile probe cover and gel used Ultrasound Image Saved?: Yes Nerve Stimulator: Not Used Paresthesia: None Procedure Tolerated: No Complications Procedure Outcome: Successful Performed By: Lety Venegas
--- NOTE | 2021-09-30 11:51 | PDOC.DSDIS_ITS ---
Discharge Plan Disposition Patient Disposition: HOME Condition: Good Discharge Details Reason For Visit: Right Knee DJD Attending Provider: Franky Stafford Primary Care Provider: Nabila Rodriguez Home Meds and New Rx's Prescriptions: New celecoxib 200 mg capsule 200 mg PO BID PRN (Reason: pain) Qty: 60 RF: 1 aspirin 81 mg tablet,delayed release (DR/EC) 81 mg PO BID Qty: 60 RF: 0 acetaminophen 500 mg tablet 1,000 mg PO Q8H PRN (Reason: pain) Qty: 90 RF: 3 docusate sodium [Colace] 100 mg capsule 100 mg PO BID PRNQty: 10 RF: 0 oxycodone 5 mg tablet 5 mg PO Q4H Qty: 18 RF: 0 Continued (DME) insulin syringes (disposable) 1 mL syringe See Rx Instructions .ROUTE .MEDSUPPLY Qty: 12 RF: 0 diclofenac sodium [Voltaren] 1 % gel 2 gm Topical QID PRN (Reason: pain) Qty: 3 RF: 3 lidocaine 5 % adhesive patch,medicated 2 patch TP DAILY Qty: 180 RF: 3 pantoprazole [Protonix] 40 mg tablet,delayed release (DR/EC) 40 mg PO BID Qty: 180 RF: 3 Xeljanz XR 11 mg tablet extended release 24 hr 11 mg PO DAILY RF: 0 cholecalciferol (vitamin D3) [Vitamin D3] 50 mcg (2,000 unit) tablet 6,000 unit PO DAILY Qty: 270 RF: 3 magnesium chloride 64 mg tablet,delayed release (DR/EC) 128 mg PO DAILY Qty: 180 RF: 0 diphenoxylate-atropine [Lomotil] 2.5-0.025 mg tablet 2 tab PO QID MDD 20 mg diphenoxylate PRN (Reason: diarrhea) Qty: 720 RF: 3 multivitamin [Multiple Vitamins] 1 EACH tablet 1 ea PO DAILY RF: 0 calcium carbonate 500 MG tablet 500 mg PO DAILY RF: 0 Humira Pen Buzu-Gtdhke-Jrzs HS 40 mg/0.8 mL pen injector kit 40 mg subcut .EVERY OTHER WEEK RF: 0 lisinopril 10 mg tablet 10 mg PO DAILY Qty: 90 RF: 3 tamsulosin [Flomax] 0.4 mg capsule 0.4 mg PO DAILY Qty: 90 RF: 3 atorvastatin 40 mg tablet 40 mg PO DAILY Qty: 90 RF: 3 cyanocobalamin (vitamin B-12) 1,000 mcg/mL solution 1,000 mcg IM MONTHLY Qty: 3 RF: 3 (DME) Drainable Pouch Misc See Rx Instructions .ROUTE .MEDSUPPLY Qty: 2 RF: 11 (DME) ostomy supplies [Stomahesive Protective] Powder See Rx Instructions .ROUTE .MEDSUPPLY Qty: 28.3 RF: 3 (DME) Adhesive Remover Wipes Swab See Rx Instructions .ROUTE .MEDSUPPLY Qty: 50 RF: 11 (DME) Stomahesive Skin Barrier Misc See Rx Instructions .ROUTE .MEDSUPPLY Qty: 2 RF: 11 tramadol 50 mg tablet 50 mg PO TID MDD 150 mg PRN (Reason: pain) Qty: 50 RF: 2 Discontinued acetaminophen [Acetaminophen Extra Strength] 500 MG tablet 2 tab PO Q8H PRN RF: 0 Discharge Instructions Additional Instructions: Total Knee Discharge Instructions Activity: The most important activity is to walk. You should try to take short walks a few times a day. It is important that when resting you work on keeping the knee straight. Avoid putting a pillow behind the knee as this will encourage flexion. Work on range of motion exercises as provided by Physical Therapy. If you have the [employer] bike coming, this will be your primary tool for exercise after the knee replacement. You should use it and follow the directi ons for the knee. Utilize the other exercises sparingly based on your symptoms. - Start outpatient physical therapy within 2 weeks. - You should wear the CECELIA hose on both legs for 2 weeks. You may remove these at night. You may also use any compression sock in place of the CECELIA hose. - Utilize [employer] to review exercises, see videos on exercises and obtain basic information pertaining to your surgery and your recovery. Dressing: Remove the Oskar wrap by 2 days after your surgery and put on the CECELIA stocking given to you from the hospital. Keep the surgical dressing (underneath the OSKAR wrap) in place for at least one week. After the first week it may be removed and replaced with light gauze and tape or nothing. The wound and dressing may get wet after 3 days but avoid soaking the dressing or otherwise it will need to be changed. Many people prefer covering the dressing with cling wrap (saran wrap) to minimize it from getting soaked. If it gets wet, just pat dry. If it starts to peel off then it will need to be changed. Medications: - You should take Tylenol and anti-inflammatory Celebrex as your primary pain control medications. If the Celebrex is too expensive or not covered, please call the office for another alternative (Advil/Ibuprofen or Naproxen/Aleve). The anti-inflammatory should be taken as needed and watch for any concerning GI upset or stool color changes. - You have been prescribed a stronger pain medication Oxycodone for breakthrough pain, take as needed as prescribed. - You should continue your stomach acid reduction agent Pantoprozole to help reduce stomach acid and reflux. - You will be taking [Aspirin 81mg twice a day] for DVT prevention unless instructed otherwise. - If you have constipation you should take Colace or Miralax (both [id number]). It takes most people 3-4 days to have a bowel movement. Follow-up: 2 weeks If you have any acute concerns or questions, please do not hesitate to contact the office at [phone]. You may contact Dr. Stafford with any questions after hours through the hospital at [phone] or on his cell phone at [phone]. Referrals: Franky Stafford MD [ [facility] STAFF PHYSICIAN] - Equipment/Supplies: Walker Activity:: Elevate Shower/Bathe:: Cover Diet:: As Tolerated Discharge Orders Discharge Orders: Discharge Order (Routine); Ordered 09/30/21 Ordered By: Franky Stafford DS: Diagnosis Discharge Diagnosis (1) Degenerative joint disease of right knee: Status: Chronic
[2021-09-30] MEDS: oxyCODONE 5 MG TAB PO (12:50)
--- NOTE | 2021-09-30 13:42 | IN_ITS ---
Date of service: 09/30/21 Time of Service: 13:42 PT Notes Visit Reasons: Right Knee DJD Physical Therapy Day Surgery Initial Evaluation Date: 09/30/2021 Referring Doctor: JOSIE Mooney PT Orders: PT CONSULT: Status post Ortho surgery. Arturo is a 66-year-old male with Precautions: WBAT on the right LE with AD. Patient Profile/Admitting Diagnosis: Degenerative joint disease of the right knee and is status post right total knee arthroplasty on postoperative day 0. PMHX: Active Problem List (Updated 08/28/21 @ 14:17 by Nabila Rodriguez NP) Hypomagnesemia (Acute) Macrocytosis (Acute) Degenerative joint disease of right knee (Chronic) Gastroesophageal reflux disease (Chronic) Ileostomy in place (Chronic) Vitamin B 12 deficiency (Acute) Arthritis of carpometacarpal (CMC) joint of right thumb (Acute) Arthritis of carpometacarpal (CMC) joint of left thumb (Acute) Essential hypertension (Chronic ~02/20/19) Rheumatoid arthritis (Chronic) Osteopenia (Chronic 12/20/13) IFG (impaired fasting glucose) (Chronic 04/26/18) High serum high density lipoprotein (HDL) (Chronic 04/26/18) Degeneration of lumbar intervertebral disc (Chronic 03/29/13) Crohn's disease with complication (Chronic 11/02/11) Chronic pain (Chronic 11/02/11) Chronic low back pain with right-sided sciatica (Chronic 05/25/18) BPH without urinary obstruction (Chronic 06/16/13) Vitamin D deficiency (Chronic) Erectile dysfunction (Chronic) Medical History (Updated 08/28/21 @ 14:17 by Nabila Rodriguez NP) Bowel obstruction (11/02/14) Chronic daily headache Multiple gastric ulcers (12/21/14) 03/28/2015 EGD: normal Surgical History (Updated 09/18/21 @ 14:05 by Xenia Benton) History of esophagogastroduoden[place] ([place] [facility] [place]: [place]tral erythema History of knee surgery PCL reconstruction Left lateral epicondylitis s/p debridement S/P proctocolectomy S/P small bowel resection Status post appendectomy Status post closed fracture of right femur internal fixation - which has been removed Status post ileostomy Status post laminectomy (~12/28/14) Lumbar laminectomy 1980;199512/28/14 thoracic laminectomy and spinal cord stimulator Status post tonsillectomy and adenoidectomy Social History/Home Situation: Lives with in private home with 4 steps to enter with a rail on the right going up. has 13 steps down to the cellar. Independent with all aspects of ADLs prior to surgery. Equipment Owned/DME: [employer] Subjective: Reports 6-7/10 pain in the R knee with ambulation activity that subsided with rest. States that will provide needed assiatnce at home. Daughter is a physical therapist practicing in [place], [place]. Objective: General Observation: TEDS to L leg. IV in the R UE. NANI wraps to R LE. Cryocuff to R knee. In NAD. Mental Status: Alert and oriented x 4 Pain: 6-7/10 in the R knee ROM: Right Lower Extremity: Hip flexion WFL. Hip abduction WFL. Knee flexion 20 degrees to 90 degrees. Knee extension -20 degrees. Ankle dorsiflexion WFL. Ankle plantarflexion WFL. Left Lower Extremity: Hip flexion WFL. Hip abduction WFL. Knee flexion WFL. Ankle dorsiflexion WFL. Ankle plantarflexion WFL. Strength: Right Lower Extremity: Hip flexors 4/5. Hip abductors 4/5. Knee flexors 3-/5. Knee extensors 3-/5. Ankle dorsiflexors 5/5. Ankle plantarflexors 5/5. Left Lower Extremity:Hip flexors 5/5. Hip abductors 5/5. Knee flexors 5/5. Knee extensors 5/5. Ankle dorsiflexors 5/5. Ankle plantarflexors 5/5. Sensation: Intact as to pain and light pressure in bilateral lower extremities Bed Mobility/Transfers: Supine to sit supervision Sit to stand standby assist Stand to sit standby assist Bed to chair standby assist Gait: Tolerated level surface ambulation 100 feet using front wheeled walker with step through gait pattern requiring standby assist. No LOB. No SOB. Reported 6?7/10 pain in the right knee that subsided with rest. Denies headache, chest pain, lightheadedness throughout activity. THERA EX: Tolerated straight leg raises x with minimal extensor lag, LAQs x10, seated hip flexion x10, and ankle pumps x 20 with good response. Balance: Static Sitting: Normal Dynamic Sitting: Normal Static Standing: Fair Dynamic Standing: Fair Special Tests: Mobility Limitations Standardized Measure [facility] AM-PAC 6 clicks Basic Mobility Inpatient Short Form: Raw Score: 24 CMS Score: 0% deficit Informed Consent/Education: Patient instructed in purpose of PT consult. Education and training on initial set of exercises that can be done at home have been completed with patient. Assessment: Arturo requires the use of a front wheeled walker to maximize independence and reduce fall risk at home. Patient presents with clinical signs and symptoms consistent with current/admitting diagnoses that have resulted to mobility limitations and gait instability as demonstrated by the following impairment level findings: 1. Decreased strength to left right major muscle groups 2. Impaired standing balance 3. Limitation of joint range of motion in right [id number] moderate knee Impairments are contributing to the following functional limitations: 1. Inability to safely ambulate without assistive device 2. Increase completion time for mobility ADL performance 3. Increased fall risk Patient is assessed as a complexity based on the following: History: 66-year-old male with impairment level findings, functional limitations, and past medical history as indicated above Examination: Demonstrable impairment in strength, balance, and mobility level with underlying impairments and functional limitations as documented above Presentation: Evolving Decision Makin moderate complexity Goals: N/A. PT evaluation and 1-2 treatment sessions only for functional mobility training using recommended AD and for HEP instruction. Plan of Care/Treatment Plan: N/A. PT evaluation and 1-2 treatment session only for functional mobility training using recommended AD and for HEP instruction. DISCHARGE RECOMMENDATIONS: [] Home with no services [] [] Home with services [specify] [X] Home with outpatient PT. Home when medically cleared by orthopedic surgeon. May benefit from patient services alert facilitate return to premorbid level with community ambulation without an assistive device. [] SNF for continued rehabilitation [] [] Emergency Worker Care [] [] SNF versus LTC based on ability to participate and progress [] TREATMENT CODE/TIME: 17629 x 20 minutes, 63655 x 15 minutes beginning at 13:42 PM. Thank you for the opportunity to participate in the care of this patient. Thank you for the opportunity to participate in the care of this patient. Paz Paulson PT, DPT, CLT [facility] [place], [place]
--- NOTE | 2021-09-30 15:36 | W.ANESPOSTOP ---
Postoperative Evaluation Date, Time and Location Date Performed: 09/30/21 Time Performed: 14:10 Patient Location: Day Surgery Unit Vital Signs Most Recent Imported Vital Signs: Most Recent Vital Signs Temp Pulse Resp BP Pulse Ox 36.8 C 52 L 15 108/58 L 97 09/30/21 13:00 09/30/21 13:00 09/30/21 13:00 09/30/21 13:00 09/30/21 13:00 Pain Score Most Recent Pain Score: Most Recent Pain Score Pain Level 8 09/30/21 13:00 Assessment Mental Status: Awake (Alert & Oriented to Patient Baseline) Airway and Respiratory Function: Patent airway with normal (patient baseline) respiratory exam Cardiovascular Function: Hemodynamically Stable Hydration Status: Adequately Hydrated Nausea & Vomiting: No Nausea or Vomiting Pain: Pain is Moderate or Severe (PO Medication) Postoperative Pain Management: Pain being addressed with medication Peripheral Nerve Block: Regional nerve block not resolved at time of post operative discharge
--- NOTE | 2021-09-30 20:28 | W.PM.OP ---
Date of service: 09/30/21 Time of Service: 10:54 Operative Note Operative Note DATE OF PROCEDURE: 09/30/21 PRE-OP DIAGNOSIS: Right Knee Post-traumatic Osteoarthritis POST-OP DIAGNOSIS: same PROCEDURE: Right Total Knee Replacement with Intraoperative Navigation SURGEON: Franky Stafford CORONARY CLINICAL SPECIALIST: Celina Dennis ANESTHESIA TYPE: Spinal Refer to Anesthesia Record ESTIMATED BLOOD LOSS: 200 PATHOLOGY: none sent TOURNIQUET TIME: 0 COMPLICATIONS: None Patient was transported to: PACU Patient's condition: stable Implants: 1. Depuy Attune Cementless Cruciate Retaining Femoral Component, Size 7 2. Depuy Attune Cementless Rotating Platform Tibial Component, Size 6 3. Depuy Attune 6x7mm CR/RP Poly 4. Depuy Attune Patellar Component, Size 38 Indications: I have seen Arturo in clinic for symptoms of RIGHT knee arthritis, confirmed with radiographic findings. Arturo has exhausted nonoperative methods and was having significant limitations in daily function and desired better function and less pain. I discussed the technical details of a knee replacement. I explained the risks of the procedure to include, but not limited to, bleeding, infection, pain, stiffness, fracture, damage to nerves and vessels, damage to muscles and tendons, loosening, need for repeat procedure, blood clot and cardiopulmonary demise. Despite these risks, Arutro elected to proceed. Findings: There was significant signs of arthritis throughout the knee. Most of the changes were in the medial compartment with some large osteophytes. A retained staple was removed from the medial femur. Procedure Description: Arturo was greeted in the preoperative holding area where the correct side was identified and marked. The consent was reviewed with the patient and signed. The history and physical was updated. All questions were answered. Preoperative mediacations were administered: Acetaminophen 1000mg, Celebrex 400mg, and Gabapentin 300mg. An adductor canal block was then administered by the anesthesia team in the PACU. Arturo was taken back to the operating room. A spinal anesthestic was then administered. The patient was placed into the supine position on the operating room table. A nonsterile tourniquet was placed high onto the leg. Posts were placed for positioning during the procedure. All bony prominences were well padded. Prophylactic antibiotics in the form of Cefazolin were administered. 1g of Tranxemic Acid was given intravenously within 30 minutes of incision. The right leg was then prepped with Chloraprep and draped in a standard fashion with impervious stockinette. A second prep with Chloraprep was performed prior to application of Iodine impregnated skin protection. A timeout to confirm correct identity, side and site, procedure, allergies, anesthesia, and medical concerns was performed. With the knee in some flexion, a midline incision was made overlying the knee. Full thickness skin flaps were raised once the extensor mechanism was encountered. These were raised medially and laterally. Any bleeding was controlled with electrocautery. Once the extensor mechanism was fully exposed, a medial parapatellar arthrotomy was performed in a flexed position. All bleeding from the arthrotomy and the geniculate arteries was coagulated. A medial subperiosteal peel was performed with electrocautery to the midcoronal plane. Due to the significant varus deformity the entire medial tibial plateau was exposed. The fat pad was removed while keeping the patellar tendon protected. The anterior distal femur synovium was removed for later visualization. The ACL and PCL were resected and the anterior horn of the lateral meniscus was transected. The knee was then flexed with the patella everted. Large osteophytes from the tibia were removed. Large osteophytes from the femur were removed. A single starting pin was then placed 1cm anterior to the PCL insertion and the notch in the direction of the femoral head. The OrthoAlign device was applied over the pin. It was oriented to be in line with the epicondylar axis and the trochlear groove. It was then pinned into place. The navigation computer was then turned on and calibrated. The distal femur cut was set at 0 degrees varus/valgus and 2.5 degrees flexion. The distal femur cutting guide then was positioned for a 9mm cut. The distal femur was cut with an oscillating saw while protecting the soft tissues. The tibia was then addressed. The OrthoAlign device was placed over the tibial tubercle and medial tibia and secured into position. Once again, OrthoAlign was calibrated and then set for a 2 degrees of varus cut and 5 degrees of posterior slope. With this locked into position, the cut thickness stylus was used to assess cut thickness. The medial side, most involved side, was set for a 3mm cut, corresponding to 9mm laterally. This was then held in position and pinned into place with 2 additional pins and a cross pin for stability. The medial and lateral collateral ligaments were protected and the cut was performed. With this completed, it was assessed and noted to be of appropriate dimensions. The guide and OrthoAlign was removed. A spacer block was inserted and the knee was brought into extension. The 6mm spacer block provided full extension, without hyperextension and with stability of both the medial and lateral collateral ligaments was assessed. The pins from the femur and the tibia were then removed. The distal femur was then sized. The anterior stylus was placed onto the lateral ridge of the anterior femur. This indicated a size 7 femur. The external rotation of the guide was adjusted to 3 degrees to match the epicondylar axis, perpendicular to [place]?s line. The 4-in-1 cutting guide was the placed. The posterior medial femur cut was evaluated and appeared of good thickness. The spacer block was inserted underneath the cutting guide and stability was confirmed in 90 degrees of flexion. An heath wing was used to confirm appropriate position of the anterior cut to avoid notching. This cutting guide was ensured to be flush on the cut surface and then pinned into place with headed pins. While protecting the soft tissues, quad tendon, and collateral ligaments, the anterior and posterior cuts were performed with a saw. The central two pins were removed and the posterior and anterior chamfers were cut next. The notch-cutting guide was placed. This was pinned to lateralize the femoral component as much as possible while keeping it flush on the cut surface. This was then pinned into position. A reciprocating saw was used to make the notch cut. A rasp smoothed the cut surfaces. The medial and lateral menisci were removed. A trial femoral component was then inserted, impacted down to the cut surfaces, and the lug holes were drilled. While drilling the lug holes, the medial lug drill hit the staple from his previous surgery in the 80's. Thus, I used a small, curved osteotome to get under the staple and mallet it out. A small piece of bone from the distal-medial aspect of the femur broke but was able to be kept in place. A provisional trial tibial component was placed and the knee was brought through range of motion. The polyethylene was trialed until there was good flexion and extension with excellent stability to the medial and lateral collaterals. The patella was tracking without thumbs. A size 7mm polyethylene component provided the best range of motion and stability with less than 2mm gapping with medial and lateral stress and full extension without significant hyperextension. The tibial cut surface was fully exposed. The tibia was then sized as a 6. The tibia had been previously marked during trialing to correspond to the center of the tibial component to help with rotation. The trial was aligned to this celina, approximately rotated to the medial 1/3rd of the tibial tubercle. The trial was pinned into place. The tibia was prepared with a reamer and a keel punch and lug holes. The trial components were removed. The final components were opened on the back table. The periosteal and capsular tissues, especially posteriorly, around the knee were then systematically injected with a periarticular cocktail consisting of 50cc 0.25% Marcaine, 30mg Ketorolac, 20cc of Exparal and 50cc of injectable saline. The knee was thoroughly irrigated with a pulse lavage and dried. Irrisept was also used to irrigate the tissues. On the back table, with the implants opened, the cement was mixed. One batch of high viscosity cement was prepared with vacuum assistance. After the cement was ready a small amount was placed on the cut surface of the patella and the patellar button was clamped into position and held. While the cement was hardening, the cementless knee components were placed. Starting with the tibial component, the tibia was subluxed anteriorly and the lug holes of the component were lined up. The tibia was then impacted with an impactor and mallet until the tibial component was in contact with the tibia. The final polyethylene component was inserted. Then, the femoral component was inserted. The lug holes were aligned and the component was impacted into position. The knee was irrigated with Irrisept chlorhexadine solution. This was allowed to sit in the knee for 3 minutes. After the cement had finally cured, approximately 15min, the clamp was removed from the patella and the knee was taken through range of motion. The patella was tracking with a no-thumbs technique. The capsule was then reapproximated with a No. 1 Vicryl at multiple locations. The capsule was finally closed with a No. 2 Stratafix, barbed suture. The second dosing of 1g TXA was started. Deep tissues were then reapproximated with 0 Vicryl and 2-0 Vicryl. The skin was closed with a running 3-0 Monocryl in a subcuticular fashion. This was reinforced with skin glue. A Mepilex silver dressing was applied along with a [id number] NANI wrap. A CryoCuff was applied. Arturo was transferred to the hospital bed without difficulty an suffering no apparent complication. Arturo has a good prognosis. Physical therapy will start today and without restrictions, weight-bearing as tolerated. Aspirin 81mg BID will be used for DVT prophylaxis.
== END 2021-09-30 14:55 | disposition home or self-care (01) ==
PROVIDERS: PCP Nurse Practitioner Family; Visit Provider Student in an Organized Health Care Education/Training Program
PROC: (CPT 27447; principal; 2021-09-30 09:45)
DX: M17.31 Unilateral post-traumatic osteoarthritis, right knee (principal); R73.01 Impaired fasting glucose; I10 Essential (primary) hypertension; Z93.2 Ileostomy status
CPT/HCPCS: 20985; 27447; C1776; 76942; 97162; 97530; J0690; J1885; J2001; J2405; J2704; J3010; J3490

== ENCOUNTER 2021-10-13 14:08 | Outpatient (CLI) | payer MEDICARE, BC, SELFPAY ==
--- NOTE | 2021-10-13 13:15 | DI.RAD_ITS ---
Exam(s) XR STANDING ALIGNMENT EXAM: XR STANDING ALIGNMENT CLINICAL HISTORY: 1ST POST OP R TKA. TECHNIQUE: 2D digital imaging was performed. COMPARISON: Prior similar x-rays September 18, 2020 FINDINGS: There has been interval surgery in the right knee with placement of a total prosthesis removal of ethan gical staple previously present in medial epicondyle. Position alignment of the components of the re cently placed prosthesis are satisfactory with no fracture or loosening. Healed fracture site at the midshaft of the ipsilateral femur is again noted. Some dystrophic calcification is noted above the ipsilateral femoral neck and greater trochanter which is most probably related to the presence of a p rior long intramedullary juan f. Both hips appear unremarkable. Sclerotic densities in the distal left femur and proximal left tibia are unchanged and most probably represent bone infarcts. There is no significant joint space narrowing in the left knee left hip. Left ankle appears unremarkable. There is mild narrowing of the medial aspect the opposite-right ankle. Incidentally noted is a left-sided stimulator device projected over the left iliac crest posteriorly and most probably 4 thoracic epidural leads. There is also narrowing of the L4-5 disc space noted, t his being asymmetric and more prominent on the left than the right side of this disc space. Both sacroiliac joints appear unremarkable. There is calcification left soft tissues which is possib ly a buttock granuloma. IMPRESSION: DATA REPOSITORY: RADIATION DOSE DELIVERED:
--- NOTE | 2021-10-13 13:15 | DI.RAD_ITS ---
Exam(s) XR KNEE RT 1V EXAM: XR KNEE RT 1V CLINICAL HISTORY: 1ST POST OP R TKA. TECHNIQUE: 2D digital imaging was performed. COMPARISON: CR XR STANDING ALIGNMENT from 10/13/2021 CR XR STANDING ALIGNMENT from 10/13/2021 FINDINGS: Single lateral view of right knee performed weight-bearing reveals satisfactory position alignment of components of the prosthesis with no fracture or loosening evident. There has been patellar resurfa cing. IMPRESSION: DATA REPOSITORY: RADIATION DOSE DELIVERED:
== END 2021-10-13 14:09 | disposition home or self-care (01) ==
LOC: DIORS 14:09
PROVIDERS: PCP Nurse Practitioner Family; Referring Provider Nurse Practitioner Family; Visit Provider Physician Assistant
DX: Z96.651 Presence of right artificial knee joint (principal); Z47.1 Aftercare following joint replacement surgery
CPT/HCPCS: 73560; 77073

== ENCOUNTER 2021-11-18 01:59 | Outpatient (CLI) | payer MEDICARE, BC, SELFPAY ==
[2021-11-19 13:31] LABS: COVID-19 RT-PCR UVMMC Result Indeterminate (Negative)
== END 2021-11-18 02:00 | disposition home or self-care (01) ==
LOC: LBO 01:59
PROVIDERS: PCP Nurse Practitioner Family; Visit Provider Nurse Practitioner
DX: K50.919 Crohn's disease, unspecified, with unspecified complications (principal); Z20.822 Contact with and (suspected) exposure to COVID-19; Z47.1 Aftercare following joint replacement surgery; Z96.651 Presence of right artificial knee joint
CPT/HCPCS: U0003; U0005

== ENCOUNTER 2021-11-24 03:12 | Outpatient (CLI) | payer MEDICARE, BC, SELFPAY ==
[2021-11-25 13:17] LABS: COVID-19 RT-PCR UVMMC Result Negative (Negative)
== END 2021-11-24 03:13 | disposition home or self-care (01) ==
PROVIDERS: PCP Nurse Practitioner Family; Visit Provider Nurse Practitioner Family
DX: Z20.822 Contact with and (suspected) exposure to COVID-19 (principal)
CPT/HCPCS: U0003; U0005

== ENCOUNTER 2021-11-26 00:41 | Outpatient (RCR) | payer MEDICARE, BC, SELFPAY | END 2021-12-15 23:59 | disposition home or self-care (01) | LOC: INF 00:41 | PROVIDERS: PCP Nurse Practitioner Family; Visit Provider Family Medicine | DX: Z29.8 Encounter for other specified prophylactic measures (principal) | CPT/HCPCS: 96372; Q0221 ==

== ENCOUNTER 2021-11-27 02:48 | Outpatient (CLI) | payer MEDICARE, BC, SELFPAY ==
[2021-11-27 10:47] LABS: Potassium 4.8 mmol/L (3.5-5.1)
[2021-11-27 10:50] LABS: Magnesium 1.1 mg/dL (1.8-2.4)
[2021-11-27 11:15] LABS: Vitamin D 25 Total 10.7 ng/mL (30-100)
== END 2021-11-27 02:49 | disposition home or self-care (01) ==
LOC: LBO 02:48
PROVIDERS: PCP Nurse Practitioner Family; Visit Provider Nurse Practitioner Family
DX: E55.9 Vitamin D deficiency, unspecified
CPT/HCPCS: 36415; 82306; 83735; 84132

== ENCOUNTER → 2021-12-29 11:10 | Outpatient (BNVA) | payer MEDICARE, BC, SELFPAY | PROVIDERS: PCP Nurse Practitioner Family; Visit Provider Student in an Organized Health Care Education/Training Program | DX: Z96.651 Presence of right artificial knee joint (principal) ==

== ENCOUNTER 2021-12-30 01:19 | Outpatient (CLI) | payer MEDICARE, BC, SELFPAY ==
[2021-12-31 11:25] LABS: COVID-19 RT-PCR UVMMC Result Negative (Negative)
== END 2021-12-30 01:20 | disposition home or self-care (01) ==
LOC: LBO 01:19
PROVIDERS: PCP Nurse Practitioner Family; Visit Provider Nurse Practitioner Family
DX: Z20.822 Contact with and (suspected) exposure to COVID-19 (principal)
CPT/HCPCS: U0003; U0005

== ENCOUNTER 2022-01-01 03:09 | Outpatient (RCR) | payer MEDICARE, BC, SELFPAY | END 2022-01-15 23:59 | disposition home or self-care (01) | LOC: INF 03:09 | PROVIDERS: PCP Nurse Practitioner Family; Visit Provider Family Medicine | DX: Z92.25 Personal history of immunosuppression therapy (principal) | CPT/HCPCS: 96372; Q0221 ==

== ENCOUNTER 2022-02-23 01:49 | Outpatient (CLI) | payer MEDICARE, BC, SELFPAY ==
[2022-02-23 15:35] LABS: Magnesium 1.2 mg/dL (1.8-2.4)
[2022-02-23 22:48] LABS: Vitamin D 25 Total 11.4 ng/mL (30-100)
== END 2022-02-23 01:50 | disposition home or self-care (01) ==
LOC: LBO 01:50
PROVIDERS: PCP Nurse Practitioner Family; Visit Provider Nurse Practitioner Family
DX: E55.9 Vitamin D deficiency, unspecified
CPT/HCPCS: 82306; 83735

== ENCOUNTER 2022-10-05 11:40 | Outpatient (CLI) | payer MEDICARE, BC, SELFPAY ==
--- NOTE | 2022-10-05 11:15 | DI.RAD_ITS ---
Exam(s) XR KNEE RT 2V AP,LAT EXAM: XR KNEE RT 2V AP,LAT INDICATION: R TKR. COMPARISON: CR XR KNEE RT 1V from 09/18/2021 CR XR KNEE RT 1V from 10/13/2021 CR XR STANDING ALIGNMENT from 10/13/2021 TECHNIQUE: 2D digital imaging was performed. Two views. FINDINGS: There has been no change in the alignment of the total knee prosthesis or appearance of the surroundi ng bone. DATA REPOSITORY: RADIATION DOSE DELIVERED:
== END 2022-10-05 11:41 | disposition home or self-care (01) ==
LOC: DIORS 11:41
PROVIDERS: PCP Nurse Practitioner Family; Referring Provider Nurse Practitioner Family; Visit Provider Physician Assistant
DX: Z96.651 Presence of right artificial knee joint (principal)
CPT/HCPCS: 99213; 73560

== ENCOUNTER 2022-10-22 02:21 | Outpatient (CLI) | payer MEDICARE, BC, SELFPAY ==
[2022-10-22 15:04] LABS: Magnesium 0.8 mg/dL (1.8-2.4)
[2022-10-22 15:27] LABS: Vitamin D 25 Total 13.7 ng/mL (30-100)
== END 2022-10-22 02:22 | disposition home or self-care (01) ==
LOC: LBO 02:21
PROVIDERS: PCP Nurse Practitioner Family; Visit Provider Nurse Practitioner Family
DX: E55.9 Vitamin D deficiency, unspecified (principal); E83.42 Hypomagnesemia
CPT/HCPCS: 36415; 82306; 83735

== ENCOUNTER 2022-11-28 18:58 | Inpatient (IN) | payer MEDICARE, BC, SELFPAY ==
--- NOTE | 2022-11-28 19:00 | RT.EKG_ITS ---
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
[2022-11-28 19:04] VITALS: BP 151/69; PULSE 65; RESP 16; TEMP 36.6; O2SAT 99
--- NOTE | 2022-11-28 19:15 | DI.CT_ITS ---
Exam(s) CT ABDOMEN PELVIS W EXAM: CT ABDOMEN PELVIS W CLINICAL HISTORY: Abdominal Pain, hx colectomy, R/O Obstruction. TECHNIQUE: Imaging Protocol: Axial computed tomography images with coronal and sagittal reformatted images were created and reviewed CONTRAST MATERIAL: Intravenous: Omnipaque-350 100cc Oral: None COMPARISON: CT CT ABDOMEN PELVIS W from 08/25/2020 CR,XR XR CHEST 2V PA LATERAL from 11/28/2022 FINDINGS: VISUALIZED LUNG BASES: Atelectasis in both lung bases. No pleural effusions.. ABDOMEN: There has been prior colectomy and there is a right-sided ileostomy with fecalization of the most dis rachel bowel loops at this level. All of the small bowel loops are dilated and somewhat edematous with diameters up to 4.0 cm. More proximal left upper quadrant bowel loops are upper normal diameters. M ild distention of the stomach. There is no ascites. LIVER: There are no focal hepatic lesions evident. No dilated intrahepatic ducts. GALLBLADDER/BILIARY: No obvious gallbladder pathology. CBD is not dilated. PANCREAS: No evidence of pancreatic mass nor dilatation of the pancreatic duct. SPLEEN: Spleen is not enlarged. No obvious intrasplenic lesions. Splenic and portal veins are paten t. ADRENALS: There are no significant adrenal masses. KIDNEYS:No cysts evident. No solid renal masses. No calculi nor hydronephrosis.. ABDOMINAL AORTA: Abdominal aorta is not enlarged. LYMPH NODES:There is no retroperitoneal nor paraaortic adenopathy. ABDOMINAL WALL: No evidence of significant anterior abdominal wall nor inguinal hernia. GI: Bowel obstruction as described above. No free air. No abscess. PELVIS: GI: Colectomy LYMPH NODES: There is no intrapelvic nor inguinal adenopathy. REPRODUCTIVE: Prostate not enlarged. URINARY BLADDER: No calculi nor obvious masses evident OSSEOUS: Previous lumbar laminectomies and epidural Lexapro dose. Evidence of prior intramedullary r od in the right femur. IMPRESSION: 1. Previous colectomy. Right ileostomy. Small bowel obstruction. Probably related to adhesion or s tricture at the ileostomy level, given that the bowel loops are dilated to this level. No free air. No ascites. 2. Findings as above. RADIATION DOSE DELIVERED: 742.22mGy.cm Total DLP DATA REPOSITORY: All CT scans at this facility are submitted to the National Radiology Data Registry (NRDR) Dose Index Registry (DIR) with the [employer] ([employer]). RADIATION OPTIMIZATION: All CT scans at this facility use at least one of these dose optimization te chniques: automated exposure control; mA and/or kV adjustment per patient size (includes targeted exa ms where dose is matched to clinical indication); or iterative reconstruction.
--- NOTE | 2022-11-28 19:17 | ED.GENADUL_ITS ---
Discharge Plan Discharge Details Chief Complaint: Abd Prob Primary Care Provider: Nabila Rodriguez ED Provider: Deborah Campa Home Meds and New Rx's Prescriptions: No Action diclofenac sodium [Voltaren] 1 % gel 2 gm Topical QID PRN (Reason: pain) Qty: 3 3RF Rx Instructions: Dispense 3 100GM tubes for 90 days lidocaine 5 % adhesive patch,medicated 2 patch TP DAILY Qty: 180 3RF Rx Instructions: leave on most painful area for 12 hrs magnesium chloride 64 mg tablet,delayed release (DR/EC) 128 mg PO TID Qty: 540 3RF tramadol 50 mg tablet 50 mg PO TID MDD 150 mg PRN (Reason: pain) Qty: 50 2RF Rx Instructions: Agreement is for 50 pills for 4 weeks cholecalciferol (vitamin D3) 125 mcg (5,000 unit) capsule 15,000 unit PO DAILY Qty: 270 3RF multivitamin [Multiple Vitamins] 1 EACH tablet 1 ea PO DAILY calcium carbonate 500 MG tablet 500 mg PO DAILY (DME) BD Safety-Paul Detachable Needl 3 mL 25 gauge x 5/8 syringe See Rx Instructions .Route Rx Instructions: As directed (DME) insulin syringes (disposable) 1 mL syringe See Rx Instructions .ROUTE .MEDSUPPLY Qty: 12 0RF Rx Instructions: As directed to administer B12 injections monthly. Dispense covered brand & appropriate size for B12 injections. Humira Pen Wxdt-Hfgebe-Qwjx HS 40 mg/0.8 mL pen injector kit 40 mg subcut QWEEK Patient Comments: per 12/05/18 [facility] note--OK to switch to Enbrel if rheumatology agrees.LH lisinopril 10 mg tablet 10 mg PO DAILY Qty: 90 3RF pantoprazole [Protonix] 40 mg tablet,delayed release (DR/EC) 40 mg PO BID Qty: 180 3RF Rx Instructions: Take 40 mg twice daily on an empty stomach at least 30 minutes before meals atorvastatin 40 mg tablet 40 mg PO DAILY Qty: 90 3RF tamsulosin [Flomax] 0.4 mg capsule 0.4 mg PO DAILY Qty: 90 3RF (DME) Drainable Pouch Misc See Rx Instructions .ROUTE .MEDSUPPLY Qty: 2 11RF Rx Instructions: As directed. Dispense two boxes (#20 units per box, Product #[id number]). Dispense covered brand. (DME) ostomy supplies [Stomahesive Protective] Powder See Rx Instructions .ROUTE .MEDSUPPLY Qty: 28.3 3RF Rx Instructions: As directed. Dispense covered brand. Product #[id number] (DME) Adhesive Remover Wipes Swab See Rx Instructions .ROUTE .MEDSUPPLY Qty: 50 11RF Rx Instructions: As directed. Dispense 1 box (#50 units per box, Product #[id number]). Dispense covered brand. (DME) Stomahesive Skin Barrier Misc See Rx Instructions .ROUTE .MEDSUPPLY Qty: 2 11RF Rx Instructions: As directed. Dispense two boxes (#20 per box, Product #[id number]). Dispense covered brand. diphenoxylate-atropine [Lomotil] 2.5-0.025 mg tablet 2 tab PO QID MDD 20 mg diphenoxylate PRN (Reason: diarrhea) Qty: 720 3RF cyanocobalamin (vitamin B-12) 1,000 mcg/mL solution 1,000 mcg IM MONTHLY Qty: 3 3RF sulfasalazine 500 mg tablet 1 g PO BID Rx Instructions: give with food (meal/snack) Paxlovid (EUA) 300 mg (150 mg x 2)-100 mg tablets,dose pack See Rx Instructions PO BID 5 Days Qty: 1 0RF Rx Instructions: Nirmatrelvir 300 mg with ritonavir 100 mg, administered together PO twice a day; acetaminophen 500 mg tablet 1,000 mg PO Q8H PRN (Reason: pain) Qty: 90 3RF Medical Decision Making 67-year-old male past medical history of bowel obstruction, bowel resection, proctocolectomy presents to the ER with a chief complaint of abdominal pain, diaphoresis and decreased output from his stoma which began this afternoon. He reports that he had a small amount of output from his stoma around 11am and began with worsening gradual onset of abdominal pain which he describes as sharp cramping he is diaphoretic upon arrival. He does report some shortness of breath denies any chest pain. EKG was reviewed by Dr. Silva ER attending, please see his official report old EKG available for review. Work-up ordered including CBC, CMP, lipase, troponin, urinalysis, fentanyl Zofran. staff home therapy rn requesting as needed fentanyl order. 25 mcg as needed 1 hour ordered. CBC shows white blood cell count of 17.96, absolute neutrophils 15.27, lactate 1.3 sodium 138 potassium 3.7, magnesium 0.9, does have a history of hypomagnesemia, 1 g of magnesium ordered IV, initial troponin less than 50, lipase is low at 15 COVID is negative. 2120: Spoke with Dr. Hurtado with general surgery regarding patient case and details she reports that she will look at the images and give me a call back. She recommends urinalysis and chest x-ray. These were ordered. 2144: Spoke with Dr. Hurtado regarding patient and CT results she was able to personally review the images she recommends to have the patient try flushing the stoma out with a red Narendra and warm water she also does recommend to attempt to transfer to [facility] due to him having establish care and seeing GI and surgery at [facility]. She is questioning whether he may need a revision of the stricture at the ostomy level. I did discuss this plan of care with the patient and family who verbalized understanding. He is willing to attempt flushing his stoma at this time. 2201: Spoke with [facility] transfer center regarding patient for transfer request they are at bed capacity are only excepting emergent transfers. They will get me in contact with general surgery images were requested to be pushed. 2234: Spoke with Dr. Lin with general surgery at [facility] regarding patient case and details. He suggests that this may be also related to a Crohn's flare due to the high white count he recommends high-dose steroids to resolve the enteritis at this time and nonoperative management at this time and nonemergent discussion at a later date if surgery is needed. Will repage Surgery here. 2238: Patient was unsuccessful at the catheter flushing he is complaining of increased pain after attempting to flush the stoma fentanyl 25 mcg IV is being given at this time by staff home therapy rn. 2242: Surgeon Dr. Hurtado repaged. 2311: ER holding orders placed with n.p.o. except for meds and sips of water NG tube ordered as needed vomiting only. Solu-Medrol 30 mg IV every 12 hours and Protonix daily ordered. Patient and family updated on plan of care and verbalized understanding and are in agreement with plan. The time of this dictation plan is to transfer patient to floor bed. Patient hemodynamically stable and is more comfortable than previously after Dilaudid. This text was generated using [employer]ile[employer] system, please disregard any oddities of phrase or misspellings. Medical Records Medical records reviewed: Yes I reviewed the patient's medical records. Lab Data Lab results reviewed: Yes I reviewed the patient's lab results. Labs: Laboratory Tests Range/Units 11/28/22 11/28/22 11/28/22 19:20 19:20 19:20 WBC (4.4-10.8) 10^3/uL 17.96 H RBC (4.36-5.78) 10^6/uL 4.12 L Hgb (13.5-17.5) g/dL 14.1 Hct (40.0-50.0) % 41.2 MCV (80-95) fL 100 H MCH (27.0-33.0) pg 34.2 H MCHC (32.0-36.0) % 34.2 RDW (11.8-14.1) % 12.3 Plt Count (130-400) 10^3/uL 309 MPV (8.0-11.0) fL 10.0 Immature Gran % 0.0 Neutrophils % 84.0 Band Neutrophils % 1 Lymphocytes % 6.0 Monocytes % 9.0 Eosinophils % 1.0 Basophils % 0.0 Nucleated RBC % (0.0-0.3) % 0.0 Absolute Neutrophils (1.2-6.7) 10^3/uL 15.27 H Absolute Lymphocytes (1.2-3.4) 10^3/uL 1.08 L Absolute Monocytes (0.1-0.8) 10^3/uL 1.62 H Absolute Eosinophils (0.0-0.7) 10^3/uL 0.18 Absolute Basophils (0.0-0.2) 10^3/uL 0.00 RBC Morphology Normal VBG Lactate (0.6-1.4) mmol/L 1.3 Sodium (136-145) mmol/L 138 Potassium (3.5-5.1) mmol/L 3.7 Chloride (98-107) mmol/L 100 Carbon Dioxide (21.0-32.0) mmol/L 28.1 Anion Gap (3-11) mmol/L 9.9 BUN (7-18) mg/dL 15 Creatinine (0.70-1.30) mg/dL 0.9 Est GFR (CKD-EPI 2020) (mL/min/1.73m2) 93.61 Glucose (74-106) mg/dL 99 Calcium (8.5-10.1) mg/dL 9.2 Magnesium (1.8-2.4) mg/dL 0.9 L Total Bilirubin (0.2-1.0) mg/dL 1.0 AST (15-37) U/L 30 ALT (16-63) U/L 25 Alkaline Phosphatase (46-116) U/L 62 Troponin I (<or=60) ng/L < 50 Total Protein (6.4-8.2) g/dL 8.1 Albumin (3.4-5.0) g/dL 4.4 Lipase (16-77) U/L 15 L COVID-19 Source SARS-CoV-2 (PCR) (Negative) Range/Units 11/28/22 19:35 WBC (4.4-10.8) 10^3/uL RBC (4.36-5.78) 10^6/uL Hgb (13.5-17.5) g/dL Hct (40.0-50.0) % MCV (80-95) fL MCH (27.0-33.0) pg MCHC (32.0-36.0) % RDW (11.8-14.1) % Plt Count (130-400) 10^3/uL MPV (8.0-11.0) fL Immature Gran % Neutrophils % Band Neutrophils % Lymphocytes % Monocytes % Eosinophils % Basophils % Nucleated RBC % (0.0-0.3) % Absolute Neutrophils (1.2-6.7) 10^3/uL Absolute Lymphocytes (1.2-3.4) 10^3/uL Absolute Monocytes (0.1-0.8) 10^3/uL Absolute Eosinophils (0.0-0.7) 10^3/uL Absolute Basophils (0.0-0.2) 10^3/uL RBC Morphology VBG Lactate (0.6-1.4) mmol/L Sodium (136-145) mmol/L Potassium (3.5-5.1) mmol/L Chloride (98-107) mmol/L Carbon Dioxide (21.0-32.0) mmol/L Anion Gap (3-11) mmol/L BUN (7-18) mg/dL Creatinine (0.70-1.30) mg/dL Est GFR (CKD-EPI 2020) (mL/min/1.73m2) Glucose (74-106) mg/dL Calcium (8.5-10.1) mg/dL Magnesium (1.8-2.4) mg/dL Total Bilirubin (0.2-1.0) mg/dL AST (15-37) U/L ALT (16-63) U/L Alkaline Phosphatase (46-116) U/L Troponin I (<or=60) ng/L Total Protein (6.4-8.2) g/dL Albumin (3.4-5.0) g/dL Lipase (16-77) U/L COVID-19 Source Nasal/Nares SARS-CoV-2 (PCR) (Negative) Negative HPI General Mode of arrival: wheelchair . Date/Time Provider Initiated Documentation: 11/28/22 19:07 . Limitations to Documentation: no limitations . Information obtained by: patient, family, RN notes reviewed and old records reviewed . HPI Narrative: 67-year-old male past medical history of bowel obstruction, bowel resection, proctocolectomy presents to the ER with a chief complaint of abdominal pain, diaphoresis and decreased output from his stoma which began this afternoon. He reports that he had a small amount of output from his stoma around 11am and began with worsening gradual onset of abdominal pain which he describes as sharp cramping he is diaphoretic upon arrival. He does report some shortness of breath denies any chest pain. He reports chills no fever. Related Data Home Medications Medication Instructions Recorded Confirmed calcium carbonate 500 mg calcium 500 mg PO DAILY 12/21/12 11/28/22 (1,250 mg) tablet multivitamin (Multiple Vitamins 1 ea PO DAILY 12/21/12 11/28/22 tablet) diclofenac sodium 1 % topical gel 2 gm topical QID PRN pain #3 tubes 01/19/20 11/11/22 (Voltaren) lidocaine 5 % topical patch 2 patch topical DAILY #180 ea 01/19/20 11/28/22 acetaminophen 500 mg tablet 1,000 mg PO Q8H PRN pain #90 tabs 09/30/21 11/11/22 insulin syringes (disposable) 1 mL #12 ea 12/04/21 11/11/22 syringe with needle, safety 3 mL 12/04/21 11/11/22 25 gauge x 5/8 (BD Safety-Paul Detachable Needle) adalimumab 40 mg/0.8 mL 40 mg subcut QWEEK 02/20/22 11/28/22 subcutaneous pen kit (Humira Pen Irqgnouug-Xwgbabi-Kadi Hid Sup Start) lisinopril 10 mg tablet 10 mg PO DAILY #90 tab-caps 04/02/22 11/28/22 pantoprazole 40 mg tablet,delayed 40 mg PO BID #180 tabs 05/25/22 11/28/22 release (Protonix) atorvastatin 40 mg tablet 40 mg PO DAILY #90 tab-caps 06/26/22 11/28/22 tamsulosin 0.4 mg capsule (Flomax) 0.4 mg PO DAILY #90 tab-caps 07/08/22 11/28/22 colostomy bags (Drainable Pouch) #2 ea 07/22/22 11/11/22 ostomy supplies (Adhesive Remover #50 ea 07/22/22 11/11/22 Wipes) ostomy supplies (Stomahesive #28.3 grams 07/22/22 11/11/22 Protective Powder) ostomy supplies (Stomahesive Skin #2 ea 07/22/22 11/11/22 Barrier) diphenoxylate-atropine 2.5 2 tab PO QID PRN diarrhea #720 tabs 08/10/22 11/28/22 mg-0.025 mg tablet (Lomotil) cyanocobalamin (vitamin B-12) 1,000 mcg IM MONTHLY #3 vials 08/19/22 11/28/22 1,000 mcg/mL injection solution nirmatrelvir 300 mg (150 mg See Rx Instructions PO BID 5 days 10/23/22 11/28/22 x2)-ritonavir 100 mg tablet,dose #1 pkg pack(EUA) (Paxlovid) sulfasalazine 500 mg tablet 1 g PO BID 10/23/22 11/28/22 cholecalciferol (vitamin D3) 125 15,000 unit PO DAILY #270 caps 10/30/22 11/28/22 mcg (5,000 unit) capsule magnesium chloride 64 mg 128 mg PO TID #540 tabs 10/30/22 11/28/22 (magnesium chloride) tablet,delayed release tramadol 50 mg tablet 50 mg PO TID PRN pain #50 tab-caps 10/30/22 11/28/22 Previous Rx's Medication Instructions Recorded diclofenac sodium 1 % topical gel 2 gm topical QID PRN pain #3 tubes 01/19/20 (Voltaren) lidocaine 5 % topical patch 2 patch topical DAILY #180 ea 01/19/20 acetaminophen 500 mg tablet 1,000 mg PO Q8H PRN pain #90 tabs 09/30/21 insulin syringes (disposable) 1 mL #12 ea 12/04/21 lisinopril 10 mg tablet 10 mg PO DAILY #90 tab-caps 04/02/22 pantoprazole 40 mg tablet,delayed 40 mg PO BID #180 tabs 05/25/22 release (Protonix) atorvastatin 40 mg tablet 40 mg PO DAILY #90 tab-caps 06/26/22 tamsulosin 0.4 mg capsule (Flomax) 0.4 mg PO DAILY #90 tab-caps 07/08/22 colostomy bags (Drainable Pouch) #2 ea 07/22/22 ostomy supplies (Adhesive Remover #50 ea 07/22/22 Wipes) ostomy supplies (Stomahesive #28.3 grams 07/22/22 Protective Powder) ostomy supplies (Stomahesive Skin #2 ea 07/22/22 Barrier) diphenoxylate-atropine 2.5 2 tab PO QID PRN diarrhea #720 tabs 08/10/22 mg-0.025 mg tablet (Lomotil) cyanocobalamin (vitamin B-12) 1,000 mcg IM MONTHLY #3 vials 08/19/22 1,000 mcg/mL injection solution nirmatrelvir 300 mg (150 mg See Rx Instructions PO BID 5 days 10/23/22 x2)-ritonavir 100 mg tablet,dose #1 pkg pack(EUA) (Paxlovid) cholecalciferol (vitamin D3) 125 15,000 unit PO DAILY #270 caps 10/30/22 mcg (5,000 unit) capsule magnesium chloride 64 mg 128 mg PO TID #540 tabs 10/30/22 (magnesium chloride) tablet,delayed release tramadol 50 mg tablet 50 mg PO TID PRN pain #50 tab-caps 10/30/22 Allergies Allergy/AdvReac Type Severity Reaction Status Date / Time minocycline [Minocycline] Allergy Severe PER [facility] Verified 11/11/22 09:54 RECORDS ADDED 01/06/13 ketamine Allergy Unknown Pt Verified 11/11/22 09:54 reported like an out of body experience diltiazem HCl [From Cardizem] Allergy Verified 11/11/22 09:54 fluoxetine HCl [From Prozac] Allergy Verified 11/11/22 09:54 Penicillins Allergy itching, Verified 11/11/22 09:54 swelling of hands tetracycline [Tetracycline] Allergy tongue Verified 11/11/22 09:54 swelling aspirin AdvReac unable to Verified 11/11/22 09:54 take high dose d/t nose bleeds morphine AdvReac hallucinate Verified 11/11/22 09:54 General Stated Complaint: Abd Prob CACHORRO: 3 Review of Systems All systems reviewed & are unremarkable except as noted in HPI and below Gastrointestinal Gastrointestinal: Reports as per HPI, Reports abdominal pain, Denies hematochezia and Reports change in bowel habits PFSH All Active Problems Vitamin D deficiency (Chronic) Erectile dysfunction (Chronic) BPH without urinary obstruction (Chronic 06/16/13) Chronic low back pain with right-sided sciatica (Chronic 05/25/18) Chronic pain (Chronic 11/02/11) 11/27 low risk; neg comorbid psych. Crohn's disease with complication (Chronic 11/02/11) Dr. Heaton [facility] GI S/p 4 SB resections with an ileostomy (placed 2002) Ongoing intermittent SBO relieved with flusing red rubber catheter 11/28/15 recurrent SBO [facility] Degeneration of lumbar intervertebral disc (Chronic 03/29/13) recurrent L4-[address] Chowdary [facility] spine clinic; spondolysis lumbar RF Rx [facility] 10/2012; 12/28/14 thoracic laminectomy and spinal cord stimulator High serum high density lipoprotein (HDL) (Chronic 04/26/18) 03/2020: good response to statin therapy, continue IFG (impaired fasting glucose) (Chronic 04/26/18) Osteopenia (Chronic 12/20/13) FRAX risk: 6.8%/1.1% osteop/hip; VitD insuff DEXA 08/25/16 WNL Rheumatoid arthritis (Chronic) [facility] Rheumatology Essential hypertension (Chronic ~02/20/19) Arthritis of carpometacarpal (CMC) joint of left thumb (Acute) 12/20/19-[facility] hand and upper extremity program. JOSIE Panchal Arthritis of carpometacarpal (CMC) joint of right thumb (Acute) 12/20/19-and STT joint arthritis, [facility] hand and upper extremity program. JOSIE Panchal Vitamin B 12 deficiency (Acute) Ileostomy in place (Chronic) Gastroesophageal reflux disease (Chronic) Degenerative joint disease of right knee (Chronic) Depo-Medrol injection: 05/16/2021 Macrocytosis (Acute) Hypomagnesemia (Acute) Medical History Bowel obstruction (11/02/14) Chronic daily headache COVID (~10/23/22) Multiple gastric ulcers (12/21/14) 03/28/2015 EGD: normal Neurostimulator device in situ Left throacic region per pt. SARS-CoV-2 positive (~03/04/22) 04/2022 Surgical History History of esophagogastroduodenoscopy (EGD) 10/21/20 [facility] [place] [facility] stomach: mild antral erythema History of knee surgery PCL reconstruction History of total right knee replacement (09/30/21) DOS 09/30/21 Left lateral epicondylitis s/p debridement S/P proctocolectomy S/P small bowel resection Status post appendectomy Status post closed fracture of right femur internal fixation - which has been removed Status post ileostomy Status post laminectomy (~12/28/14) Lumbar laminectomy 1980;199512/28/14 thoracic laminectomy and spinal cord stimulator Status post tonsillectomy and adenoidectomy Family History Mother , COPD COPD (chronic obstructive pulmonary disease) Rheumatoid arthritis Father COPD (chronic obstructive pulmonary disease) Dementia Social History Smoking/Tobacco Use Status: Former Tobacco Use Quit Date: 10/18/90 Tobacco: How many years used: 4 Smoking risk assessment performed?: Yes Alcohol Intake: current Alcohol Intake frequency: holidays/special occasions only Drug use: Never Substance use type: does not use Adopted: No (Adopted by father) Caregiver/Support person: No Foster care: No Household members: spouse Housing: house Number of Children: 1 Communication Needs: Corrective Lenses Education Level: high school Do you need help understanding health information?: Rarely current occupation: Retired Pets and animals: Yes Pets and animals: cat(s) Sexually active: Yes Do you think of yourself as: straight/heterosexual Current gender identity: male What is your relationship status?: How often do you talk on the phone with friends or family?: decline to answer How often do you get together with friends or relatives?: once per week Do you belong to any clubs or organized social groups?: yes Panel score (0-1 are the most socially isolated patients): 2 What type of physical activity do you participate in: walking Duration: > 90 minutes/day Frequency: daily Kelli/Catholic: Catholic Special kelli needs: No Seatbelt use: always Helmet use: Yes Drive intox or ride w/intox sprinkling truck driver: No Water heater temp set <120 deg: No (comes off wood stove) Working smoke detector in home: Yes Fire extinguisher in home: Yes Carbon monox detector in home: Yes Firearms in home: Yes Firearms unloaded and locked: Yes Do you feel safe at home: Yes Do you feel safe in your relationship?: Yes Exam Narrative Exam Narrative: Constitutional: Alert and oriented x3. Appears stated age. Normal body habitus. Diaphoretic, is in pain. Uncomfortable. Head: Normocephalic, no trauma. Eyes: Pupils PERRL, Red reflex noted, EOM's intact. Eyelids symmetrical without lesions, discharge, or swelling. ENT: Bilateral TM's WNL, External ear normal to inspection, no mastoid TTP, swelling, or erythema, Nasal turbinates WNL, no nasal discharge. Normal dentition, Posterior pharynx WNL, no exudate. Chest: RRR, Normal S1, S2, distal pulses intact. Resp: Lungs clear to auscultation bilaterally, no wheezes, rales, or rhonchi. Abdomen: Guarding, Colostomy noted to RLQ, Tender with palpation all 4 quadrants, Hypoactive bowel sounds all 4 quads. Very small amount of Thick yellow stool noted in colostomy bag. Musculoskeletal: unable to assess gait, 5/5 strength to all four extremities. Skin: No suspicious rashes or lesions. Capillary refill less than 2 sec. Neurologic: Cranial nerves II-XII intact. Alert and oriented x 3. Motor: No deficits noted. Sensory: Intact bilaterally all 4 extremities. Hematologic/Lymphatic: No ecchymosis, no lymphadenopathy. Course Vital Signs Vital signs: Vital Signs Temperature 36.6 C 11/28/22 19:04 Pulse 65 11/28/22 19:04 Respiratory Rate 16 11/28/22 19:04 Blood Pressure 151/69 H 11/28/22 19:04 Pulse Oximetry 99 11/28/22 19:04 Temperature 36.6 C 11/28/22 19:04 Pulse 65 11/28/22 19:04 Respiratory Rate 16 11/28/22 19:04 Respiratory Effort Normal, Non-Labored 11/28/22 19:07 Blood Pressure 151/69 H 11/28/22 19:04 Blood Pressure Position Sitting 11/28/22 19:04 Pulse Oximetry 99 11/28/22 19:04 Oxygen Delivery Method Room Air 11/28/22 19:04 Oxygen Flow Rate 0 11/28/22 19:04
[2022-11-28 19:32] LABS: Lactate 1.3 mmol/L (0.6-1.4)
[2022-11-28] MEDS: fentaNYL 100 MCG/2 ML VIAL 50 MCG IVP (19:32)
[2022-11-28] MEDS: Normal Saline 1,000 ML 300 ML IV (19:32)
[2022-11-28] MEDS: Ondansetron 4 MG/2 ML VIAL IVP (19:32)
[2022-11-28 19:35] LABS: Abs Immature Grans 0.05 10^3/uL (0.0-0.06); HCT 41.2 % (40.0-50.0); HGB 14.1 g/dL (13.5-17.5); MCH 34.2 pg (27.0-33.0); MCHC 34.2 % (32.0-36.0); MCV 100 fL (80-95); Platelet Count 309 10^3/uL (130-400); RBC 4.12 10^6/uL (4.36-5.78); RDW 12.3 % (11.8-14.1); RDW-SD 45.5 fL; WBC 17.96 10^3/uL (4.4-10.8)
[2022-11-28 19:40] LABS: Source Nasal/Nares
[2022-11-28 19:51] LABS: ALT 25 U/L (16-63); AST 30 U/L (15-37); Albumin 4.4 g/dL (3.4-5.0); Alkaline Phosphatase 62 U/L (46-116); Anion Gap 9.9 mmol/L (3-11); BUN 15 mg/dL (7-18); CO2 28.1 mmol/L (21.0-32.0); CREATININE 0.9 mg/dL (0.70-1.30); Calcium 9.2 mg/dL (8.5-10.1); Chloride 100 mmol/L (98-107); Estimated GFR 93.61 (mL/min/1.73m2); Glucose 99 mg/dL (74-106); Lipase 15 U/L (16-77); Magnesium 0.9 mg/dL (1.8-2.4); Potassium 3.7 mmol/L (3.5-5.1); Sodium 138 mmol/L (136-145); Total Protein 8.1 g/dL (6.4-8.2); Troponin I < 50 ng/L (<or=60)
[2022-11-28 20:09] LABS: Absolute Eosinophil Count 0.18 10^3/uL (0.0-0.7); Absolute Lymphocyte Count 1.08 10^3/uL (1.2-3.4); Absolute Monocyte Count 1.62 10^3/uL (0.1-0.8); Absolute Neutrophil Count 15.27 10^3/uL (1.2-6.7); Bands % 1; Diff Comment Manual Differential; RBC Morphology Normal
[2022-11-28 20:12] LABS: COVID-19 PCR Negative (Negative)
[2022-11-28] MEDS: Omnipaque 350 MG/ML 100 ML BTL IJ (20:22)
[2022-11-28] MEDS: Normal Saline - Diluent 50 ML VIAL IJ (20:23)
[2022-11-28] MEDS: fentaNYL 100 MCG/2 ML VIAL 25 MCG IVP ×3 (20:32→22:37)
[2022-11-28] MEDS: MAGNESIUM SULFATE 1 GM/100 ML BAG IVPB (20:32)
--- NOTE | 2022-11-28 20:40 | DI.VRAD_ITS ---
PROCEDURE INFORMATION: Exam: CT Abdomen And Pelvis With Contrast Exam date and time: 11/28/2022 8:11 PM Age: 67 years old Clinical indication: Abdominal pain; Prior surgery; Surgery type: Colyectomy; Per PT: 2004; Patient HX: R/O obstruction TECHNIQUE: Imaging protocol: Computed tomography of the abdomen and pelvis with contrast. COMPARISON: CT ABDOMEN PELVIS W 08/25/2020 12:51 PM FINDINGS: Tubes, catheters and devices: Thoracic epidural catheter, intact as visualized. Lungs: Minimal dependent subsegmental atelectasis. Liver: No mass. Gallbladder and bile ducts: Distended gallbladder with no calcified stones. The CBD is mildly prominent for age, pattern similar to prior. Pancreas: No ductal dilation. No masses. Spleen: No splenomegaly or focal lesions. Adrenal glands: No mass. Kidneys and ureters: No hydronephrosis. No renal masses. Stomach and bowel: Mild fluid-filled distention of the stomach. Colectomy. Moderate distension of mid to distal small bowel. Air-fluid levels and small bowel feces sign. This extends to the level of the right lower quadrant ostomy. Small bowel within the ostomy appears mildly thick walled. Appendix: No evidence of appendicitis. Intraperitoneal space: No rea free fluid or free air. There is scattered mild mesenteric edema. No abscess. Vasculature: No abdominal aortic aneurysm. Lymph nodes: No significantly enlarged lymph nodes. Urinary bladder: Unremarkable as visualized. Reproductive: Moderate prostatic enlargement. Presumed vasectomy clips. Bones/joints: Chronic bony changes with no acute fracture. Soft tissues: No suspicious lesions. IMPRESSION: 1. Colectomy. 2. Moderate in severity partial small bowel obstruction may relate to stricture and or enteritis at the level of the right lower quadrant ostomy. 3. Additional findings as described. Dictated and Authenticated by: Morena Kenyon MD. Ordering:DARION Cabrera MD
--- NOTE | 2022-11-28 21:15 | DI.RAD_ITS ---
Exam(s) XR CHEST 2V PA LATERAL EXAM: XR CHEST 2V PA LATERAL CLINICAL HISTORY: SOB, Abd Pain. TECHNIQUE: 2D digital imaging was performed. COMPARISON: CR,XR XR PORTABLE CHEST AP POST LINE from 08/22/2020 FINDINGS: 2 views: Posterior epidural electrode noted in the midthoracic spine, unchanged. No compression fractures reggie dent. Heart size is normal. The mediastinum is not widened. Lungs are clear. No infiltrates nor pleural effusions. IMPRESSION: No acute pulmonary findings.Thoracic electrodes noted DATA REPOSITORY: RADIATION DOSE DELIVERED:
--- NOTE | 2022-11-28 21:46 | DI.VRAD_ITS ---
PROCEDURE INFORMATION: Exam: XR Chest Exam date and time: 11/28/2022 9:41 PM Age: 67 years old Clinical indication: Shortness of breath; Prior surgery; Surgery type: Nerve stimulator TECHNIQUE: Imaging protocol: Radiologic exam of the chest. Views: 2 views. COMPARISON: XR PORTABLE CHEST AP POST LINE 08/22/2020 8:07 PM FINDINGS: Tubes, catheters and devices: Thoracic epidural device in the expected position. Lungs: Mild hyperinflation without airspace consolidation. Pleural spaces: No pleural effusion. No pneumothorax. Heart/Mediastinum: No cardiomegaly. Bones/joints: No acute fracture. IMPRESSION: Mild hyperinflation without airspace consolidation. Dictated and Authenticated by: Morena Kenyon MD. Ordering:DARION Cabrera MD
[2022-11-28 22:29] LABS: Troponin I < 50 ng/L (<or=60)
[2022-11-28 22:32] VITALS: BP 117/50; PULSE 64; RESP 20; O2SAT 99
[2022-11-28 22:47] LABS: Bilirubin Negative (Negative); Blood Negative (Negative); Clarity Clear (Clear); Glucose Negative (Negative); Ketones Trace mg/dL (Negative); Leukocyte Esterase Negative (Negative); Nitrite Negative (Negative); Specific Gravity <= 1.005 (1.005-1.025); Urobilinogen 0.2 EU/dL (Up TO 0.2); pH 5.5 (5-8)
[2022-11-28] MEDS: HYDROmorphone 2 MG/ML SYR 0.5 MG IVP (23:05)
--- NOTE | 2022-11-28 23:33 | W.SURGCON ---
Date of service: 11/28/22 Time of Service: 23:34 Assessment and Plan Assessment and plan (1) Bowel obstruction: Assessment and plan: 67 yo male with h/o Crohn's disease s/p proctocolectomy with multiple small bowel resections, with end ileostomy. Now with acute on chronic SBO, likely secondary to stricture or Crohn's exacerbation. May require non-emergent surgery, but no beds are reportedly available at [facility] where the patient's GI physician and past surgeries have occurred. --will admit for supportive care --NPO --NGT if vomits, pt refusing at this time --IV fluids --pain control, minimize narcotics Full H&P to follow (2) Crohn's disease with complication: Status: Chronic Assessment and plan: --will support with IV steroids --full GI consult in AM Qualifiers: Gastrointestinal tract location: unspecified location Qualified Code(s): K50.919 - Crohn's disease, unspecified, with unspecified complications History of Present Illness History of Present Illness Chief Complaint: abdominal pain Narrative: History obtained from chart, and Deborah Campa NP in ED. 67 yo male with h/o Crohn's disease s/p proctocolectomy with multiple small bowel resections, with end ileostomy. Now with acute on chronic SBO, likely secondary to stricture or Crohn's exacerbation. Surgical consult requested. Consults Consult date: 11/28/22 Requesting physician: Deborah Campa [facility] All Active Problems Vitamin D deficiency (Chronic) Erectile dysfunction (Chronic) BPH without urinary obstruction (Chronic 06/16/13) Chronic low back pain with right-sided sciatica (Chronic 05/25/18) Chronic pain (Chronic 11/02/11) / low risk; neg comorbid psych. Crohn's disease with complication (Chronic 11/02/11) Dr. Heaton [facility] S/p 4 SB resections with an ileostomy (placed 2002) Ongoing intermittent SBO relieved with flusing red rubber catheter 11/28/15 [place] [facility] Degeneration of lumbar intervertebral disc (Chronic 03/29/13) recurrent L4-[address] Chowdary [facility] [place]; spondolysis lumbar RF Rx [facility] [place]2012; 12/28/14 thoracic laminectomy and spinal cord stimulator High serum high density lipoprotein (HDL) (Chronic 04/26/18) 03/2020: good response to statin therapy, continue IFG (impaired fasting glucose) (Chronic 04/26/18) Osteopenia (Chronic 12/20/13) FRAX risk: 6.8%/1.1% osteop/hip; VitD insuff DEXA 08/25/16 WNL Rheumatoid arthritis (Chronic) [facility] Rheumatology Essential hypertension (Chronic ~02/20/19) Arthritis of carpometacarpal (CMC) joint of left thumb (Acute) 12/20/19-[facility] hand and upper [facility] program. JOSIE Panchal Arthritis of carpometacarpal (CMC) joint of right thumb (Acute) 12/20/19-and STT joint arthritis, [facility] hand and upper extremity program. JOSIE Panchal Vitamin B 12 deficiency (Acute) Ileostomy in place (Chronic) Gastroesophageal reflux disease (Chronic) Degenerative joint disease of right knee (Chronic) Depo-Medrol injection: 05/16/2021 Macrocytosis (Acute) Hypomagnesemia (Acute) Medical History Bowel obstruction (11/02/14) Chronic daily headache COVID (~10/23/22) Multiple gastric ulcers (12/21/14) 03/28/2015 EGD: normal Neurostimulator device in situ Left throacic region per pt. SARS-CoV-2 positive (~03/04/22) 04/2022 Surgical History History of esophagogastroduodenoscopy (EGD) 10/21/20 [facility] [place] stomach: mild antral erythema History of knee surgery PCL reconstruction History of total right knee replacement (09/30/21) DOS 09/30/21 Left lateral epicondylitis s/p debridement S/P proctocolectomy S/P small bowel resection Status post appendectomy Status post closed fracture of right femur internal fixation - which has been removed Status post ileostomy Status post laminectomy (~12/28/14) Lumbar laminectomy 1980;199512/28/14 thoracic laminectomy and spinal cord stimulator Status post tonsillectomy and adenoidectomy Family History Mother , COPD COPD (chronic obstructive pulmonary disease) Rheumatoid arthritis Father COPD (chronic obstructive pulmonary disease) Dementia Social History Smoking/Tobacco Use Status: Former Tobacco Use Quit Date: 10/18/90 Tobacco: How many years used: 4 Smoking risk assessment performed?: Yes Alcohol Intake: current Alcohol Intake frequency: holidays/special occasions only Drug use: Never Substance use type: does not use Adopted: No (Adopted by father) Caregiver/Support person: No Foster care: No Household members: spouse Housing: house Number of Children: 1 Communication Needs: Corrective Lenses Education Level: high school Do you need help understanding health information?: Rarely current occupation: Retired Pets and animals: Yes Pets and animals: cat(s) Sexually active: Yes Do you think of yourself as: straight/heterosexual Current gender identity: male What is your relationship status?: How often do you talk on the phone with friends or family?: decline to answer How often do you get together with friends or relatives?: once per week Do you belong to any clubs or organized social groups?: yes Panel score (0-1 are the most socially isolated patients): 2 What type of physical activity do you participate in: walking Duration: > 90 minutes/day Frequency: daily Kelli/Buddhist: Mormon Special kelli needs: No Seatbelt use: always Helmet use: Yes Drive intox or ride w/intox rickshaw driver: No Water heater temp set <120 deg: No (comes off wood stove) Working smoke detector in home: Yes Fire extinguisher in home: Yes Carbon monox detector in home: Yes Firearms in home: Yes Firearms unloaded and locked: Yes Do you feel safe at home: Yes Do you feel safe in your relationship?: Yes Results Last Vital Signs Temp 97.9 F 11/28/22 19:04 Pulse 64 11/28/22 22:32 Resp 20 11/28/22 22:32 BP 117/50 L 11/28/22 22:32 Pulse Ox 99 11/28/22 22:32 Labs 11/28/22 19:20 11/28/22 19:20 Labs: Laboratory Results - last 24 hr 11/28/22 11/28/22 11/28/22 19:20 19:20 19:20 WBC 17.96 H RBC 4.12 L Hgb 14.1 Hct 41.2 MCV 100 H MCH 34.2 H MCHC 34.2 RDW 12.3 Plt Count 309 MPV 10.0 Immature Gran % 0.0 Neutrophils % 84.0 Band Neutrophils % 1 Lymphocytes % 6.0 Monocytes % 9.0 Eosinophils % 1.0 Basophils % 0.0 Nucleated RBC % 0.0 Absolute Neutrophils 15.27 H Absolute Lymphocytes 1.08 L Absolute Monocytes 1.62 H Absolute Eosinophils 0.18 Absolute Basophils 0.00 RBC Morphology Normal VBG Lactate 1.3 Sodium 138 Potassium 3.7 Chloride 100 Carbon Dioxide 28.1 Anion Gap 9.9 BUN 15 Creatinine 0.9 Est GFR (CKD-EPI 2020) 93.61 Glucose 99 Calcium 9.2 Magnesium 0.9 L Total Bilirubin 1.0 AST 30 ALT 25 Alkaline Phosphatase 62 Troponin I < 50 Total Protein 8.1 Albumin 4.4 Lipase 15 L Urine Color Urine Clarity Urine pH Ur Specific Colbert Urine Protein Urine Ketones Urine Blood Urine Nitrite Urine Bilirubin Urine Urobilinogen Ur Leukocyte Esterase Urine Glucose COVID-19 Source SARS-CoV-2 (PCR) 11/28/22 11/28/22 11/28/22 19:35 22:00 22:33 WBC RBC Hgb Hct MCV MCH MCHC RDW Plt Count MPV Immature Gran % Neutrophils % Band Neutrophils % Lymphocytes % Monocytes % Eosinophils % Basophils % Nucleated RBC % Absolute Neutrophils Absolute Lymphocytes Absolute Monocytes Absolute Eosinophils Absolute Basophils RBC Morphology VBG Lactate Sodium Potassium Chloride Carbon Dioxide Anion Gap BUN Creatinine Est GFR (CKD-EPI 2020) Glucose Calcium Magnesium Total Bilirubin AST ALT Alkaline Phosphatase Troponin I < 50 Total Protein Albumin Lipase Urine Color Yellow Urine Clarity Clear Urine pH 5.5 Ur Specific Colbert <= 1.005 Urine Protein Negative Urine Ketones Trace H Urine Blood Negative Urine Nitrite Negative Urine Bilirubin Negative Urine Urobilinogen 0.2 Ur Leukocyte Esterase Negative Urine Glucose Negative COVID-19 Source Nasal/Nares SARS-CoV-2 (PCR) Negative
[2022-11-28] MEDS: methylPREDNISolone SUCC 40 MG VIAL 30 MG IVP (23:54)
[2022-11-28] MEDS: Pantoprazole 40 MG VIAL (23:54)
--- NOTE | 2022-11-29 00:02 | NUR.NOTE ---
@3384-Pt discharged by MD. Coordinating with care provider to get pt back to his home.
[2022-11-29 01:59] VITALS: BP 113/55; PULSE 69; RESP 16; TEMP 36.9; O2SAT 95
--- NOTE | 2022-11-29 02:00 | NUR.NOTE ---
@[id number]- Per PATT Cabrera pt does not need an NG tube placed unless he starts vomiting. Pt has not vomited since his arrival.
--- NOTE | 2022-11-29 02:01 | NUR.NOTE ---
@2300-Pt given supplies to irrigate stoma per Nita Cabrera instructions. Pt irrigated stoma w/o change. Post irrigation pt has no output and pain increased. PATT Cabrera made aware and will admit pt.
[2022-11-29] MEDS: ACETAMINOPHEN 1,000 MG/100 ML BTL 400 MG IVPB ×3 (02:26→15:54)
[2022-11-29] MEDS: MAGNESIUM SULFATE 2 GM/50 ML BAG IVPB (02:27)
[2022-11-29] MEDS: Normal Saline 1,000 ML 125 ML IV ×3 (02:32→19:12)
[2022-11-29 03:28] VITALS: BP 122/66; PULSE 67; RESP 18; TEMP 36.6; O2SAT 95
[2022-11-29] MEDS: HYDROmorphone 2 MG/ML SYR 0.5 MG IVP ×2 (03:49→08:36)
[2022-11-29] MEDS: Normal Saline Flush 10 ML SYR IVP ×6 (03:49→18:18)
[2022-11-29 06:25] LABS: Abs Immature Grans 0.03 10^3/uL (0.0-0.06); Absolute Basophil Count 0.01 10^3/uL (0.0-0.2); Absolute Eosinophil Count 0.01 10^3/uL (0.0-0.7); Absolute Lymphocyte Count 0.64 10^3/uL (1.2-3.4); Absolute Monocyte Count 0.17 10^3/uL (0.1-0.8); Basophils % 0.1; Eosinophils % 0.1; HCT 36.4 % (40.0-50.0); HGB 12.7 g/dL (13.5-17.5); Immature Grans % 0.2; Lymphocytes % 5.3; MCH 34.1 pg (27.0-33.0); MCHC 34.9 % (32.0-36.0); MCV 98 fL (80-95); MPV 9.4 fL (8.0-11.0); Monocytes % 1.4; Neutrophils % 92.9; Platelet Count 248 10^3/uL (130-400); RBC 3.72 10^6/uL (4.36-5.78); RDW 12.1 % (11.8-14.1); RDW-SD 43.5 fL; WBC 12.01 10^3/uL (4.4-10.8)
[2022-11-29 06:27] LABS: Absolute Neutrophil Count 11.16 10^3/uL (1.2-6.7)
[2022-11-29 06:45] LABS: ALT 20 U/L (16-63); AST 23 U/L (15-37); Albumin 3.5 g/dL (3.4-5.0); Alkaline Phosphatase 56 U/L (46-116); Anion Gap 8.5 mmol/L (3-11); BUN 12 mg/dL (7-18); Bilirubin, Total 0.8 mg/dL (0.2-1.0); CO2 25.5 mmol/L (21.0-32.0); CREATININE 0.7 mg/dL (0.70-1.30); Calcium 8.6 mg/dL (8.5-10.1); Chloride 103 mmol/L (98-107); Estimated GFR 100.99 (mL/min/1.73m2); Glucose 144 mg/dL (74-106); Potassium 4.1 mmol/L (3.5-5.1); Sodium 137 mmol/L (136-145); Total Protein 6.8 g/dL (6.4-8.2)
[2022-11-29 07:22] VITALS: BP 113/53; PULSE 70; RESP 18; TEMP 37.1; O2SAT 94
[2022-11-29] MEDS: Pantoprazole 40 MG VIAL IVP (08:36)
[2022-11-29] MEDS: Ondansetron 4 MG/2 ML VIAL IVP (09:08)
--- NOTE | 2022-11-29 09:16 | PDOC.CMIN ---
- If Service Date Differs Date of service: 11/29/22 Time of Service: 09:16 Care Management Initial Assess REASON FOR HOSPITALIZATION:: bowel obstruction PAST MEDICAL HISTORY/PAST SURGICAL HISTORY:: All Active Problems . Vitamin D deficiency (Chronic). Erectile dysfunction (Chronic). BPH without urinary obstruction (Chronic 06/16/13). Chronic low back pain with right-sided sciatica (Chronic 05/25/18). Chronic pain (Chronic 11/02/11). 11/27 low risk; neg comorbid psych. Crohn's disease with complication (Chronic 11/02/11). Dr. Heaton [facility]. S/p 4 SB resections with an ileostomy (placed 2002). Ongoing intermittent SBO relieved with flusing red rubber catheter. 11/28/15 recurrent SBO [facility]. Degeneration of lumbar intervertebral disc (Chronic 03/29/13). recurrent L4-[address] Chowdary. [facility] spine clinic; spondolysis lumbar RF Rx [facility] 10/2012; 12/28/14 thoracic laminectomy and spinal cord stimulator. High serum high density lipoprotein (HDL) (Chronic 04/26/18). 03/2020: good response to statin therapy, continue. IFG (impaired fasting glucose) (Chronic 04/26/18). Osteopenia (Chronic 12/20/13). FRAX risk: 6.8%/1.1% osteop/hip; VitD insuff. DEXA 08/25/16 WNL. Rheumatoid arthritis (Chronic). [facility] Rheumatology. Essential hypertension (Chronic ~02/20/19). Arthritis of carpometacarpal (CMC) joint of left thumb (Acute). 12/20/19-[facility] hand and upper extremity program. JOSIE Panchal. Arthritis of carpometacarpal (CMC) joint of right thumb (Acute). 12/20/19-and STT joint arthritis, [facility] hand and upper extremity program. JOSIE Panchal. Vitamin B 12 deficiency (Acute). Ileostomy in place (Chronic). Gastroesophageal reflux disease (Chronic). Degenerative joint disease of right knee (Chronic). Depo-Medrol injection: 05/16/2021. Macrocytosis (Acute). Hypomagnesemia (Acute). Medical History . Bowel obstruction (11/02/14). Chronic daily headache. COVID (~10/23/22). Multiple gastric ulcers (12/21/14). 03/28/2015 EGD: normal. Neurostimulator device in situ. Left throacic region per pt. SARS-CoV-2 positive (~03/04/22). 04/2022. Surgical History . History of esophagogastroduodenoscopy (EGD). 10[place]21/20 [facility] [place] stomach: mild antral erythema. History of knee surgery. PCL reconstruction. History of total right knee replacement (09/30/21). DOS 09/30/21. Left lateral epicondylitis. s/p debridement. S/P proctocolectomy. S/P small bowel resection. Status post appendectomy. Status post closed fracture of right femur. internal fixation - which has been removed. Status post ileostomy. Status post laminectomy (~12/28/14). Lumbar laminectomy 1980;1995. 12/28/14 thoracic laminectomy and spinal cord stimulator. Status post tonsillectomy and adenoidectomy PREVIOUS FUNCTIONAL STATUS/SOCIAL/FAMILY SUPPORTS:: Arturo lives in [place] with his , Rola. His daughter (only child) Tiffany is a PT, who lives in [place], [place]. 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 He is independent at baseline and does not use any assistive devices or receive any communiuty based services. CURRENT FUNCTIONAL STATUS:: Meir was lying in bed looking very uncomfortable when CM met with him. His Rola was present at the time and provided most of the information. Meir stated that he was having severe pain. He had just been medicated and was not able to engage in further conversation. ADVANCE DIRECTIVES:: On file. Rola [facility] Has patient been provided with info about the portal/API?: Yes Did the patient sign up for the portal?: Yes (previously) CODE STATUS:: Full Code INSURANCE COVERAGE / FINANCIAL ISSUES:: Medicare. [facility] CURRENT HOME/COMMUNITY SERVICES/EQUIPMENT:: none PRIMARY CARE PHYSICIAN:: Nabila Rodriguez POTENTIAL DISCHARGE NEEDS:: follow up with surgeon, PCP and plan of care PATIENT/FAMILY EDUCATION NEEDS:: Review of discharge instructions, activity, limitations, diet, discuss Ask Me Three TRANSPORTATION:: via private vehicle with family PLAN:: Anticipate Arturo will be discharged home when medically clleared. He will follow up with his surgeon and PCP and plan of care and transport with family. CM will follow and assess for discharge needs.
[2022-11-29] MEDS: fentaNYL 100 MCG/2 ML VIAL 25 MCG IVP (10:57)
--- NOTE | 2022-11-29 11:31 | W.PM.HP.N ---
Date of service: 11/29/22 Time of Service: 11:31 Assessment and Plan Assessment and plan (1) Bowel obstruction: Assessment and plan: 67 yo male with h/o Crohn's disease s/p proctocolectomy with multiple small bowel resections, with end ileostomy. Now with acute on chronic SBO, likely secondary to stricture or Crohn's exacerbation. Pt's symptoms have improved since admission and he has passed ~350cc of mushy stool. Still with soreness, and some crampy pain. --will allow patient to try to irrigate stoma prn --IV fluids --NPO except ice chips, sips with meds --OOB and ambulate --consider gastrograffin challenge tomorrow --DVT/GI prophylaxis (2) Crohn's disease with complication: Status: Chronic Assessment and plan: 67yo male with h/o Crohn's disease since 1977, on Humira. --Spoke, in consult, with [facility], Dr. Radha Woods, and she recommends that the patient be maintained on his Humira dose without additional steroids at this time. She does not think that this represents a Crohn's flare. She emphasized to call back if the patient does not seem to progressively improve, and that would be an indication for transfer. The patient should follow-up as an outpatient soon after discharge. Qualifiers: Gastrointestinal tract location: unspecified location Qualified Code(s): K50.919 - Crohn's disease, unspecified, with unspecified complications History of Present Illness History of Present Illness Chief Complaint: abdominal pain Narrative: This is a 67 yo male with h/o Crohn's disease s/p proctocolectomy with multiple small bowel resections, with end ileostomy. He, subsequently, has short gut, and normally takes six Lomotil per day, and follows a low fiber diet. He presented to the ED late yesterday after he noticed decreased ileostomy output in the morning, cramping abdominal pain, and dry heaving around 2pm. He has a history of many bowel obstructions, and usually tries to treat impending symptoms at home with irrigation through his stoma in a hot shower, however, he was not home, and did not attempt this yesterday. The last time he irrigated at home was just before Kor[place]. The frequency of necessity depends of what he eats, and how well he chews his food. He normally has liquid stools, and empties ~10 times/daily. He denies any fevers/chills, cough, dysuria, or recent symptoms of illness. He is followed at [facility] by Dr. Heaton in GI, and Dr. Becker in colorectal surgery. He has had long known issues with his mechanics of his ostomy, and the desire has been to try to avoid surgery given his short gut. He takes Humira weekly, for both Crohn's and RA, and was treated for gastric ulcers ~2years ago. He estimates his last bowel surgery was for ostomy prolapse ~10 years ago. Review of Systems Constitutional Constitutional: Reports anorexia ENT Ears, Nose, Mouth, and Throat: Denies dysphagia and Denies dizziness Cardiovascular Cardiovascular: Denies chest pain with activity and Denies dyspnea Respiratory Respiratory: Denies cough and Denies dyspnea Gastrointestinal Gastrointestinal: Reports abdominal pain, Reports bloating, Reports change in stool character, Denies dysphagia, Reports nausea and Reports vomiting Genitourinary Genitourinary: Denies difficulty urinating and Denies dysuria Neurologic Neurologic: Denies dizziness and Denies paresthesias PFSH All Active Problems Vitamin D deficiency (Chronic) Erectile dysfunction (Chronic) BPH without urinary obstruction (Chronic 06/16/13) Chronic low back pain with right-sided sciatica (Chronic 05/25/18) Chronic pain (Chronic 11/02/11) 11/27 low risk; neg comorbid psych. Crohn's disease with complication (Chronic 11/02/11) Dr. Heaton [facility] S/p 4 SB resections with an ileostomy (placed 2002) Ongoing intermittent SBO relieved with flusing red rubber catheter 11/28/15 recurrent SBO [facility] Degeneration of lumbar intervertebral disc (Chronic 03/29/13) recurrent L4-[address] Chowdary [facility] spine clinic; spondolysis lumbar RF Rx [facility] 10/2012; 12/28/14 thoracic laminectomy and spinal cord stimulator High serum high density lipoprotein (HDL) (Chronic 04/26/18) 03/2020: good response to statin therapy, continue IFG (impaired fasting glucose) (Chronic 04/26/18) Osteopenia (Chronic 12/20/13) FRAX risk: 6.8%/1.1% osteop/hip; VitD insuff DEXA 08/25/16 WNL Rheumatoid arthritis (Chronic) [facility] Essential hypertension (Chronic ~02/20/19) Arthritis of carpometacarpal (CMC) joint of left thumb (Acute) 12/20/19-[facility] hand and upper extremity program. JOSIE Panchal Arthritis of carpometacarpal (CMC) joint of right thumb (Acute) 12/20/19-and STT joint arthritis, [facility] hand and upper extremity program. JOSIE Panchal Vitamin B 12 deficiency (Acute) Ileostomy in place (Chronic) Gastroesophageal reflux disease (Chronic) Degenerative joint disease of right knee (Chronic) Depo-Medrol injection: 05/16/2021 Macrocytosis (Acute) Hypomagnesemia (Acute) Medical History Bowel obstruction (11/02/14) Chronic daily headache COVID (~10/23/22) Multiple gastric ulcers (12/21/14) 03/28/2015 EGD: normal Neurostimulator device in situ Left throacic region per pt. SARS-CoV-2 positive (~03/04/22) 04/2022 Surgical History History of esophagogastroduodenoscopy (EGD) 10/21/20 [facility] [place] stomach: mild antral erythema History of knee surgery PCL reconstruction History of total right knee replacement (09/30/21) DOS 09/30/21 Left lateral epicondylitis s/p debridement S/P proctocolectomy S/P small bowel resection Status post appendectomy Status post closed fracture of right femur internal fixation - which has been removed Status post ileostomy Status post laminectomy (~12/28/14) Lumbar laminectomy 1980;199512/28/14 thoracic laminectomy and spinal cord stimulator Status post tonsillectomy and adenoidectomy Family History Mother , COPD COPD (chronic obstructive pulmonary disease) Rheumatoid arthritis Father COPD (chronic obstructive pulmonary disease) Dementia Social History Smoking/Tobacco Use Status: Former Tobacco Use Quit Date: 10/18/90 Tobacco: How many years used: 4 Smoking risk assessment performed?: Yes Alcohol Intake: current Alcohol Intake frequency: holidays/special occasions only Drug use: Never Substance use type: does not use Adopted: No (Adopted by father) Caregiver/Support person: No Foster care: No Household members: spouse Housing: house Number of Children: 1 Communication Needs: Corrective Lenses Education Level: high school Do you need help understanding health information?: Rarely current occupation: Retired Pets and animals: Yes Pets and animals: cat(s) Sexually active: Yes Do you think of yourself as: straight/heterosexual Current gender identity: male What is your relationship status?: How often do you talk on the phone with friends or family?: decline to answer How often do you get together with friends or relatives?: once per week Do you belong to any clubs or organized social groups?: yes Panel score (0-1 are the most socially isolated patients): 2 What type of physical activity do you participate in: walking Duration: > 90 minutes/day Frequency: daily Kelli/Zoroastrianism: Cheondoism Special kelli needs: No Seatbelt use: always Helmet use: Yes Drive intox or ride w/intox bellman driver: No Water heater temp set <120 deg: No (comes off wood stove) Working smoke detector in home: Yes Fire extinguisher in home: Yes Carbon monox detector in home: Yes Firearms in home: Yes Firearms unloaded and locked: Yes Do you feel safe at home: Yes Do you feel safe in your relationship?: Yes Meds Allergies and Home Medications Allergies Allergy/AdvReac Type Severity Reaction Status Date / Time minocycline [Minocycline] Allergy Severe PER [facility] Verified 11/11/22 09:54 RECORDS ADDED 01/06/13 ketamine Allergy Unknown Pt Verified 11/11/22 09:54 reported like an out of body experience diltiazem HCl [From Cardizem] Allergy Verified 11/11/22 09:54 fluoxetine HCl [From Prozac] Allergy Verified 11/11/22 09:54 Penicillins Allergy itching, Verified 11/11/22 09:54 swelling of hands tetracycline [Tetracycline] Allergy tongue Verified 11/11/22 09:54 swelling aspirin AdvReac unable to Verified 11/11/22 09:54 take high dose d/t nose bleeds morphine AdvReac hallucinate Verified 11/11/22 09:54 Home Medications Medication Instructions Recorded Confirmed Type calcium carbonate 500 mg calcium 500 mg PO DAILY 12/21/12 11/28/22 History (1,250 mg) tablet multivitamin (Multiple Vitamins 1 ea PO DAILY 12/21/12 11/28/22 History tablet) diclofenac sodium 1 % topical gel 2 gm topical QID PRN pain #3 tubes 01/19/20 11/11/22 Rx (Voltaren) lidocaine 5 % topical patch 2 patch topical DAILY #180 ea 01/19/20 11/28/22 Rx acetaminophen 500 mg tablet 1,000 mg PO Q8H PRN pain #90 tabs 09/30/21 11/11/22 Rx insulin syringes (disposable) 1 mL #12 ea 12/04/21 11/11/22 Rx syringe with needle, safety 3 mL 12/04/21 11/11/22 History 25 gauge x 5/8 (BD Safety-Paul Detachable Needle) adalimumab 40 mg/0.8 mL 40 mg subcut QWEEK 02/20/22 11/28/22 History subcutaneous pen kit (Humira Pen Rzffmxnct-Nmhfexa-Lmuj Hid Sup Start) lisinopril 10 mg tablet 10 mg PO DAILY #90 tab-caps 04/02/22 11/28/22 Rx pantoprazole 40 mg tablet,delayed 40 mg PO BID #180 tabs 05/25/22 11/28/22 Rx release (Protonix) atorvastatin 40 mg tablet 40 mg PO DAILY #90 tab-caps 06/26/22 11/28/22 Rx tamsulosin 0.4 mg capsule (Flomax) 0.4 mg PO DAILY #90 tab-caps 07/08/22 11/28/22 Rx colostomy bags (Drainable Pouch) #2 ea 07/22/22 11/11/22 Rx ostomy supplies (Adhesive Remover #50 ea 07/22/22 11/11/22 Rx Wipes) ostomy supplies (Stomahesive #28.3 grams 07/22/22 11/11/22 Rx Protective Powder) ostomy supplies (Stomahesive Skin #2 ea 07/22/22 11/11/22 Rx Barrier) diphenoxylate-atropine 2.5 2 tab PO QID PRN diarrhea #720 tabs 08/10/22 11/28/22 Rx mg-0.025 mg tablet (Lomotil) cyanocobalamin (vitamin B-12) 1,000 mcg IM MONTHLY #3 vials 08/19/22 11/28/22 Rx 1,000 mcg/mL injection solution nirmatrelvir 300 mg (150 mg See Rx Instructions PO BID 5 days 10/23/22 11/28/22 Rx x2)-ritonavir 100 mg tablet,dose #1 pkg pack(EUA) (Paxlovid) sulfasalazine 500 mg tablet 1 g PO BID 10/23/22 11/28/22 History cholecalciferol (vitamin D3) 125 15,000 unit PO DAILY #270 caps 10/30/22 11/28/22 Rx mcg (5,000 unit) capsule magnesium chloride 64 mg 128 mg PO TID #540 tabs 10/30/22 11/28/22 Rx (magnesium chloride) tablet,delayed release tramadol 50 mg tablet 50 mg PO TID PRN pain #50 tab-caps 10/30/22 11/28/22 Rx Exam Const General: cooperative, healthy appearing, uncomfortable (looks slightly uncomfortable with occasional grimacing), well developed and well groomed Nutritional Appearance: average body habitus and well nourished Orientation: alert, awake and oriented x3 HENMT Mouth: mucous membranes dry and no drooling Neck Neck: normal visual inspection and supple Resp Effort & Inspection: normal respiratory effort, able to speak in complete sentences, no grunting, not labored and no nasal flaring Auscultation: clear to auscultation bilaterally Cardio Rate: regular rate Rhythm: regular rhythm Heart Sounds: S1 normal, S2 abnormal and murmur GI Inspection: no abdominal wall ecchymosis, no obesity, scar and other (ostomy appliance in place in RLQ) Palpation: soft, guarding (voluntary), not rigid and tender Auscultation: normal bowel sounds Skin General skin exam: scars (midline abdominal scar) Psych Mental Status: mental status grossly normal Speech and Movement: speech and movement normal Mood: congruent mood Insight: insight good Judgment: judgment good Results Imaging Imaging Studies: CT ABD/PEL (11/28/22): FINDINGS: Tubes, catheters and devices: Thoracic epidural catheter, intact as visualized. Lungs: Minimal dependent subsegmental atelectasis. Liver: No mass. Gallbladder and bile ducts: Distended gallbladder with no calcified stones. The CBD is mildly prominent for age, pattern similar to prior. Pancreas: No ductal dilation. No masses.? Spleen: No splenomegaly or focal lesions. Adrenal glands: No mass. Kidneys and ureters: No hydronephrosis. No renal masses.? Stomach and bowel: Mild fluid-filled distention of the stomach. Colectomy. Moderate distension of mid to distal small bowel. Air-fluid levels and small bowel feces sign. This extends to the level of the right lower quadrant ostomy. Small bowel within the ostomy appears mildly thick walled. Appendix: No evidence of appendicitis. Intraperitoneal space: No rea free fluid or free air. There is scattered mild mesenteric edema. No abscess. Vasculature: No abdominal aortic aneurysm. Lymph nodes: No significantly enlarged lymph nodes. Urinary bladder: Unremarkable as visualized. Reproductive: Moderate prostatic enlargement. Presumed vasectomy clips. Bones/joints: Chronic bony changes with no acute fracture. Soft tissues: No suspicious lesions.? IMPRESSION: 1. Colectomy. 2. Moderate in severity partial small bowel obstruction may relate to stricture and or enteritis at the level of the right lower quadrant ostomy. 3. Additional findings as described. Labs 11/29/22 06:15 11/29/22 06:15 Labs: Laboratory Results - last 24 hr 11/28/22 11/28/22 11/28/22 19:20 19:20 19:20 WBC 17.96 H RBC 4.12 L Hgb 14.1 Hct 41.2 MCV 100 H MCH 34.2 H MCHC 34.2 RDW 12.3 Plt Count 309 MPV 10.0 Immature Gran % 0.0 Neutrophils % 84.0 Band Neutrophils % 1 Lymphocytes % 6.0 Monocytes % 9.0 Eosinophils % 1.0 Basophils % 0.0 Nucleated RBC % 0.0 Absolute Neutrophils 15.27 H Absolute Lymphocytes 1.08 L Absolute Monocytes 1.62 H Absolute Eosinophils 0.18 Absolute Basophils 0.00 RBC Morphology Normal VBG Lactate 1.3 Sodium 138 Potassium 3.7 Chloride 100 Carbon Dioxide 28.1 Anion Gap 9.9 BUN 15 Creatinine 0.9 Est GFR (CKD-EPI 2020) 93.61 Glucose 99 Calcium 9.2 Magnesium 0.9 L Total Bilirubin 1.0 AST 30 ALT 25 Alkaline Phosphatase 62 Troponin I < 50 Total Protein 8.1 Albumin 4.4 Lipase 15 L Urine Color Urine Clarity Urine pH Ur Specific Vida Urine Protein Urine Ketones Urine Blood Urine Nitrite Urine Bilirubin Urine Urobilinogen Ur Leukocyte Esterase Urine Glucose COVID-19 Source SARS-CoV-2 (PCR) 11/28/22 11/28/22 11/28/22 19:35 22:00 22:33 WBC RBC Hgb Hct MCV MCH MCHC RDW Plt Count MPV Immature Gran % Neutrophils % Band Neutrophils % Lymphocytes % Monocytes % Eosinophils % Basophils % Nucleated RBC % Absolute Neutrophils Absolute Lymphocytes Absolute Monocytes Absolute Eosinophils Absolute Basophils RBC Morphology VBG Lactate Sodium Potassium Chloride Carbon Dioxide Anion Gap BUN Creatinine Est GFR (CKD-EPI 2020) Glucose Calcium Magnesium Total Bilirubin AST ALT Alkaline Phosphatase Troponin I < 50 Total Protein Albumin Lipase Urine Color Yellow Urine Clarity Clear Urine pH 5.5 Ur Specific Vida <= 1.005 Urine Protein Negative Urine Ketones Trace H Urine Blood Negative Urine Nitrite Negative Urine Bilirubin Negative Urine Urobilinogen 0.2 Ur Leukocyte Esterase Negative Urine Glucose Negative COVID-19 Source Nasal/Nares SARS-CoV-2 (PCR) Negative 11/29/22 11/29/22 06:15 06:15 WBC 12.01 H RBC 3.72 L Hgb 12.7 L Hct 36.4 L MCV 98 H MCH 34.1 H MCHC 34.9 RDW 12.1 Plt Count 248 MPV 9.4 Immature Gran % 0.2 Neutrophils % 92.9 Band Neutrophils % Lymphocytes % 5.3 Monocytes % 1.4 Eosinophils % 0.1 Basophils % 0.1 Nucleated RBC % 0.0 Absolute Neutrophils 11.16 H Absolute Lymphocytes 0.64 L Absolute Monocytes 0.17 Absolute Eosinophils 0.01 Absolute Basophils 0.01 RBC Morphology VBG Lactate Sodium 137 Potassium 4.1 Chloride 103 Carbon Dioxide 25.5 Anion Gap 8.5 BUN 12 Creatinine 0.7 Est GFR (CKD-EPI 2020) 100.99 Glucose 144 H Calcium 8.6 Magnesium Total Bilirubin 0.8 AST 23 ALT 20 Alkaline Phosphatase 56 Troponin I Total Protein 6.8 Albumin 3.5 Lipase Urine Color Urine Clarity Urine pH Ur Specific Vida Urine Protein Urine Ketones Urine Blood Urine Nitrite Urine Bilirubin Urine Urobilinogen Ur Leukocyte Esterase Urine Glucose COVID-19 Source SARS-CoV-2 (PCR) Last Vital Signs Temp 98.8 F 11/29/22 07:22 Pulse 70 02/12/23 07:22 Resp 18 11/29/22 07:22 BP 113/53 L 11/29/22 07:22 Pulse Ox 94 11/29/22 07:22 Time Spent Time spent with Patient: 40-54 minutes Time was spent: preparing to see the patient(eg.review tests), obtaining and/or reviewing separately otained hiistory, ordering medications,tests, procedures, referring, communicating with other health manager critical care, indepentently interpreting results and counseling the patient
[2022-11-29] MEDS: Ketorolac 30 MG/ML VIAL IVP ×2 (11:59→18:18)
[2022-11-29] MEDS: methylPREDNISolone SUCC 40 MG VIAL 30 MG IVP (11:59)
[2022-11-29] MEDS: HYDROmorphone 2 MG/ML VIAL 0.5 MG IVP (12:41)
[2022-11-29] MEDS: Magnesium Chloride 64 MG TABCR 128 MG PO ×2 (14:59→19:54)
[2022-11-29 15:15] VITALS: BP 102/44; PULSE 57; RESP 19; TEMP 36.7; O2SAT 92
[2022-11-29] MEDS: Methocarbamol 500 MG TAB PO ×2 (15:54→19:53)
[2022-11-29 19:03] VITALS: BP 101/61; PULSE 59; RESP 17; TEMP 36.7; O2SAT 95
[2022-11-30 00:09] VITALS: BP 102/52; PULSE 62; RESP 16; TEMP 37.2; O2SAT 96
[2022-11-30] MEDS: Ketorolac 30 MG/ML VIAL IVP ×3 (00:28→12:34)
[2022-11-30] MEDS: Methocarbamol 500 MG TAB PO ×3 (00:28→12:33)
[2022-11-30] MEDS: ACETAMINOPHEN 1,000 MG/100 ML BTL 400 MG IVPB ×2 (00:29→09:09)
[2022-11-30 07:00] VITALS: BP 94/50; PULSE 56; RESP 16; TEMP 36.4; O2SAT 95
[2022-11-30 07:11] LABS: Abs Immature Grans 0.05 10^3/uL (0.0-0.06); Absolute Basophil Count 0.03 10^3/uL (0.0-0.2); Absolute Lymphocyte Count 2.64 10^3/uL (1.2-3.4); Absolute Monocyte Count 1.47 10^3/uL (0.1-0.8); Absolute Neutrophil Count 6.58 10^3/uL (1.2-6.7); Basophils % 0.3; Eosinophils % 0.9; HCT 36.7 % (40.0-50.0); HGB 12.3 g/dL (13.5-17.5); Immature Grans % 0.5; Lymphocytes % 24.3; MCH 33.7 pg (27.0-33.0); MCHC 33.5 % (32.0-36.0); MCV 101 fL (80-95); MPV 10.5 fL (8.0-11.0); Monocytes % 13.5; Neutrophils % 60.5; Platelet Count 273 10^3/uL (130-400); RBC 3.65 10^6/uL (4.36-5.78); RDW 12.4 % (11.8-14.1); RDW-SD 46.2 fL; WBC 10.87 10^3/uL (4.4-10.8)
[2022-11-30 07:27] LABS: Anion Gap 8.9 mmol/L (3-11); BUN 19 mg/dL (7-18); CO2 26.1 mmol/L (21.0-32.0); CREATININE 0.9 mg/dL (0.70-1.30); Calcium 8.2 mg/dL (8.5-10.1); Chloride 104 mmol/L (98-107); Estimated GFR 93.61 (mL/min/1.73m2); Glucose 88 mg/dL (74-106); Potassium 3.8 mmol/L (3.5-5.1); Sodium 139 mmol/L (136-145)
[2022-11-30 09:08] VITALS: BP 124/48
[2022-11-30] MEDS: Lisinopril 10 MG TAB PO (09:10)
[2022-11-30] MEDS: Atorvastatin 40 MG TAB PO (09:10)
[2022-11-30] MEDS: Magnesium Chloride 64 MG TABCR 128 MG PO ×2 (09:10→15:43)
[2022-11-30] MEDS: Tamsulosin 0.4 MG CAPCR PO (09:11)
[2022-11-30] MEDS: Pantoprazole 40 MG VIAL IVP (09:11)
[2022-11-30] MEDS: Normal Saline Flush 10 ML SYR IVP ×3 (09:12→12:34)
[2022-11-30] MEDS: Normal Saline 500 ML IV (12:08)
--- NOTE | 2022-11-30 12:09 | CMPROGNOTE_ITS ---
- If Service Date Differs Date of service: 11/30/22 Time of Service: 12:09 Care Management Progress Note S/O: A: Meir is a 67 year old male admitted to [facility] on 11/28/22 for partial SBO. P: Anticipate Arturo will be discharged home when medically clleared. He will follow up with his surgeon and PCP and plan of care and transport with family. CM will follow and assess for discharge needs.
--- NOTE | 2022-11-30 12:45 | PGE_ITS ---
Date of Service Date of service: 11/30/22 Time of Service: 12:45 Assessment and Plan Assessment and plan (1) Bowel obstruction: Assessment and plan: 67 yo male with h/o Crohn's disease s/p proctocolectomy with multiple small bowel resections, with end ileostomy. He presented with acute on chronic SBO. Pt's symptoms have improved since admission and he has passed 2120cc of stool since yesterday morning. He still has some peristomal soreness, but no generalized abdominal pain. --bolus 500cc for stoma output --d/c maintenance IV fluids --advance to low-residue full liquid diet --OOB and ambulate --DVT/GI prophylaxis --may discharge home this evening if continues to do well, and tolerates diet (2) Crohn's disease with complication: Status: Chronic Assessment and plan: 67yo male with h/o Crohn's disease since 1977, on Humira. --Spoke, in consult, with [facility], Dr. Radha Woods, on 11/29, and she recommends that the patient be maintained on his Humira dose without additional steroids at this time. She does not think that this represents a Crohn's flare. She emphasized to call back if the patient does not seem to progressively improve, and that would be an indication for transfer. --The patient should follow-up as an outpatient with Dr. Heaton, and Dr. Becker, soon after discharge. Qualifiers: Gastrointestinal tract location: unspecified location Qualified Code(s): K50.919 - Crohn's disease, unspecified, with unspecified complications Subjective Subjective Interval history since last seen: Pt is feeling much better today. He had passage of some mushy stool yesterday afternoon, and now his ostomy output is close to normal. He is without pain or nausea, and is eager for more food. He believes that some cooked cabbage he had the other night might have predicated this blockage. He is ambulating and voiding well. He admits that his stoma is a little swollen, but feels that it is due to him exerting extra effort to empty. Exam Const General: cooperative, healthy appearing, comfortable, no acute distress, well developed and well groomed Nutritional Appearance: average body habitus and well nourished Orientation: alert, awake and oriented x3 Neck Neck: normal visual inspection and supple Resp Effort & Inspection: normal respiratory effort, able to speak in complete sentences, no grunting, not labored and no nasal flaring Auscultation: clear to auscultation bilaterally Cardio Rate: regular rate Rhythm: regular rhythm Heart Sounds: S1 normal, S2 abnormal and murmur GI Inspection: no abdominal wall ecchymosis, no obesity and scar Palpation: soft, not firm, no guarding, not rigid, nontender and other (stoma is a little swollen, and very minimally prolapsed; pink and viable) Auscultation: normal bowel sounds Skin General skin exam: scars (midline abdominal scar) Psych Mental Status: mental status grossly normal Speech and Movement: speech and movement normal Mood: congruent mood Insight: insight good Judgment: judgment good Objective Last Vital Signs Temp 97.5 F L 11/30/22 07:00 Pulse 56 L 11/30/22 07:00 Resp 16 11/30/22 07:00 BP 124/48 L 11/30/22 09:08 Pulse Ox 95 11/30/22 07:00 Laboratory Results - last 24 hr 11/30/22 11/30/22 05:58 05:58 WBC 10.87 H RBC 3.65 L Hgb 12.3 L Hct 36.7 L MCV 101 H MCH 33.7 H MCHC 33.5 RDW 12.4 Plt Count 273 MPV 10.5 Immature Gran % 0.5 Neutrophils % 60.5 Lymphocytes % 24.3 Monocytes % 13.5 Eosinophils % 0.9 Basophils % 0.3 Nucleated RBC % 0.0 Absolute Neutrophils 6.58 Absolute Lymphocytes 2.64 Absolute Monocytes 1.47 H Absolute Eosinophils 0.10 Absolute Basophils 0.03 Sodium 139 Potassium 3.8 Chloride 104 Carbon Dioxide 26.1 Anion Gap 8.9 BUN 19 H Creatinine 0.9 Est GFR (CKD-EPI 2020) 93.61 Glucose 88 Calcium 8.2 L Magnesium 2.0 Time Spent with Patient Time Spent with Patient: <25 minutes Time was spent: preparing to see the patient(eg.review tests), obtaining and/or reviewing separately otained hiistory, ordering medications,tests, procedures, indepentently interpreting results and counseling the patient
[2022-11-30 14:24] VITALS: BP 107/58; PULSE 55; RESP 14; TEMP 36.4; O2SAT 97
--- NOTE | 2022-11-30 15:49 | W.PM.DS.N ---
Date of service: 11/30/22 Time of Service: 15:49 DS: Diagnosis Discharge Diagnosis (1) Bowel obstruction: Asessment and Plan: This is a 67-yo male with a distant history of proctocolectomy and multiple small bowel resections with end ileostomy secondary to Crohn's Disease. He has short gut, and normally takes 6 Lomotil a day, and empties his ostomy appliancee ~10/day. He noted a decrease in output on the morning of 11/28, with the development of abdominal pain, and dry heaving by 2pm. For this reason, he presented to the ED. He has a long history of intermittent obstructive symptoms that he will treat at home with enemas through his stoma. However, he was not able to in this instance. It has long been known that he has a possible mechanical emptying issue at his stoma opening, but due to the length of his bowel, surgery has been avoided. He attributes having cooked cabbage the night before presentation to the acute change in the viscosity of his stool. --Follow a low-fiber diet --Use enemas prn for obstructive symptoms --Follow up with [facility] Colrectal Surgeon, Dr. Becker, for possible dilation (2) Crohn's disease with complication: Status: Chronic Asessment and Plan: 67yo male with long history of Crohn's Disease, and possible stricture at ostomy site. --follow up with [facility] GI, Dr. Heaton --follow up with [facility] Colorectal Surgeon, Dr. Becker Discharge Plan Disposition Patient Disposition: Home Condition: Improving Discharge Details Reason For Visit: Partial Small Bowel Obstruction Admit Date/Time: 11/28/22 23:04 Admit Provider: Amando Hurtado Attending Provider: Amando Hurtado Primary Care Provider: Nabila Rodriguez Hospital Course Hospital Course: This is a 67-yo male with a distant history of proctocolectomy and multiple small bowel resections with end ileostomy secondary to Crohn's Disease. He presented with decreased stoma output, abdominal pain, and dry heaving, and was found to have a partial small bowel obstruction, at the level of the ostomy. He was admitted to the surgical service, made NPO, given mild analgesia, and IV fluid resuscitation. Early on HD#2, he started to have GI function, and his abdominal pain started to deepthi. He passed what he described as a mushy chunk, and then his more liquidy, normal stool started to pass. He was started on ice chips. [facility] GI was consulted regarding his Humira dosage and any steroid use. They did not recommend steroids, and advised to continue normal Humira dosing, as it sounds like this was a mechanical obstruction. On HD#3, he has had continuous passage of stool, without pain, or nausea. He was eager for food. He was given a trial of full liquid low-residue diet, and did well. He is eager to go home, and knows to follow up with his GI and Colorectal Surgeon. Home Meds and New Rx's Prescriptions: No Action diclofenac sodium [Voltaren] 1 % gel 2 gm Topical QID PRN (Reason: pain) Qty: 3 3RF Rx Instructions: Dispense 3 100GM tubes for 90 days lidocaine 5 % adhesive patch,medicated 2 patch TP DAILY Qty: 180 3RF Rx Instructions: leave on most painful area for 12 hrs magnesium chloride 64 mg tablet,delayed release (DR/EC) 128 mg PO TID Qty: 540 3RF tramadol 50 mg tablet 50 mg PO TID MDD 150 mg PRN (Reason: pain) Qty: 50 2RF Rx Instructions: Agreement is for 50 pills for 4 weeks cholecalciferol (vitamin D3) 125 mcg (5,000 unit) capsule 15,000 unit PO DAILY Qty: 270 3RF multivitamin [Multiple Vitamins] 1 EACH tablet 1 ea PO DAILY calcium carbonate 500 MG tablet 500 mg PO DAILY (DME) BD Safety-Paul Detachable Needl 3 mL 25 gauge x 5/8 syringe See Rx Instructions .Route Rx Instructions: As directed (DME) insulin syringes (disposable) 1 mL syringe See Rx Instructions .ROUTE .MEDSUPPLY Qty: 12 0RF Rx Instructions: As directed to administer B12 injections monthly. Dispense covered brand & appropriate size for B12 injections. Humira Pen Ajrp-Orwusn-Yyke HS 40 mg/0.8 mL pen injector kit 40 mg subcut QWEEK Patient Comments: per 12/05/18 [facility] GI note--OK to switch to Enbrel if rheumatology agrees.LH lisinopril 10 mg tablet 10 mg PO DAILY Qty: 90 3RF pantoprazole [Protonix] 40 mg tablet,delayed release (DR/EC) 40 mg PO BID Qty: 180 3RF Rx Instructions: Take 40 mg twice daily on an empty stomach at least 30 minutes before meals atorvastatin 40 mg tablet 40 mg PO DAILY Qty: 90 3RF tamsulosin [Flomax] 0.4 mg capsule 0.4 mg PO DAILY Qty: 90 3RF (DME) Drainable Pouch Misc See Rx Instructions .ROUTE .MEDSUPPLY Qty: 2 11RF Rx Instructions: As directed. Dispense two boxes (#20 units per box, Product #[id number]). Dispense covered brand. (DME) ostomy supplies [Stomahesive Protective] Powder See Rx Instructions .ROUTE .MEDSUPPLY Qty: 28.3 3RF Rx Instructions: As directed. Dispense covered brand. Product #[id number] (DME) Adhesive Remover Wipes Swab See Rx Instructions .ROUTE .MEDSUPPLY Qty: 50 11RF Rx Instructions: As directed. Dispense 1 box (#50 units per box, Product #[id number]). Dispense covered brand. (DME) Stomahesive Skin Barrier Misc See Rx Instructions .ROUTE .MEDSUPPLY Qty: 2 11RF Rx Instructions: As directed. Dispense two boxes (#20 per box, Product #[id number]). Dispense covered brand. diphenoxylate-atropine [Lomotil] 2.5-0.025 mg tablet 2 tab PO QID MDD 20 mg diphenoxylate PRN (Reason: diarrhea) Qty: 720 3RF cyanocobalamin (vitamin B-12) 1,000 mcg/mL solution 1,000 mcg IM MONTHLY Qty: 3 3RF sulfasalazine 500 mg tablet 1 g PO BID Rx Instructions: give with food (meal/snack) Paxlovid (EUA) 300 mg (150 mg x 2)-100 mg tablets,dose pack See Rx Instructions PO BID 5 Days Qty: 1 0RF Rx Instructions: Nirmatrelvir 300 mg with ritonavir 100 mg, administered together PO twice a day; acetaminophen 500 mg tablet 1,000 mg PO Q8H PRN (Reason: pain) Qty: 90 3RF Discharge Instructions Referrals: Ankit Becker [ NON-[facility] STAFF PHYSICIAN] - (Pt presented with what appears to be stricture at level of ostomy. Images have been pushed.) Activity:: Activity as Tolerated Equipment/Supplies:: No Equipment Needed Diet:: Low fiber diet DS: Summary Time Spent with Patient providing and/or coordinating discharge services: Greater than 30 minutes Status at Discharge Functional status at discharge: independent ambulation Overall status at discharge: patient is progressing back to baseline Mental Status: mental status grossly normal Speech and Movement: speech and movement normal Mood: congruent mood Affect: normal affect Exam Const General: cooperative, healthy appearing, comfortable, no acute distress, well developed and well groomed Nutritional Appearance: average body habitus and well nourished Orientation: alert, awake and oriented x3 Neck Neck: normal visual inspection and supple Resp Effort & Inspection: normal respiratory effort, able to speak in complete sentences, no grunting, not labored and no nasal flaring Auscultation: clear to auscultation bilaterally Cardio Rate: regular rate Rhythm: regular rhythm Heart Sounds: S1 normal, S2 abnormal and murmur GI Inspection: no abdominal wall ecchymosis, no obesity and scar Palpation: soft, not firm, no guarding, not rigid, nontender and other (stoma is a little swollen, and very minimally prolapsed; pink and viable) Auscultation: normal bowel sounds Skin General skin exam: scars (midline abdominal scar) Psych Mental Status: mental status grossly normal Speech and Movement: speech and movement normal Mood: congruent mood Affect: normal affect Insight: insight good Judgment: judgment good DS: Data Vitals/I&O Vitals and I&O: Vital Signs Temperature 97.5 F L 11/30/22 14:24 Temperature Source Tympanic 11/30/22 14:24 Pulse 55 L 11/30/22 14:24 Pulse Rhythm Irregular 11/30/22 09:00 Respiratory Rate 14 11/30/22 14:24 Respiratory Effort Normal 11/30/22 09:00 Respiratory Depth Normal 11/30/22 09:00 Respiratory Pattern Normal 11/30/22 09:00 Blood Pressure 107/58 L 11/30/22 14:24 Blood Pressure Position Sitting 11/28/22 19:04 Pulse Oximetry 97 11/30/22 14:24 Oxygen Delivery Method Room Air 11/30/22 14:24 Oxygen Flow Rate 0 11/30/22 14:24 Pain Level 2 11/30/22 12:34 Intake & Output 0211/30/22 11/30/22 23:59 11:59 23:59 Intake Total 1100 / 3460 1200 / 1988.333 788.333 / 1987.333 Output Total 1500 / 2250 1245 / 2645 1400 / 2645 Balance -400 / 1210 -45 / -656.667 -611.667 / -656.667 Weight 158 kg Intake: IV 1100 / 3460 1200 / 1208.333 8.333 / 1208.333 Oral 780 / 780 Output: Urine 350 / 975 400 / 1100 700 / 1100 Stool 1150 / 1275 845 / 1545 700 / 1545 Other: Urine Color Dark Kamla Yellow Yellow Urine Appearance Cloudy Clear Clear Urine Odor None Stool Size Moderate Stool Characteristics Soft Voiding Methods Urinal Urinal Urinal Data Completed and Pending Labs on day of discharge: Labs from last 24 hours 11/30/22 11/30/22 05:58 05:58 WBC 10.87 H RBC 3.65 L Hgb 12.3 L Hct 36.7 L MCV 101 H MCH 33.7 H MCHC 33.5 RDW 12.4 Plt Count 273 MPV 10.5 Immature Gran % 0.5 Neutrophils % 60.5 Lymphocytes % 24.3 Monocytes % 13.5 Eosinophils % 0.9 Basophils % 0.3 Nucleated RBC % 0.0 Absolute Neutrophils 6.58 Absolute Lymphocytes 2.64 Absolute Monocytes 1.47 H Absolute Eosinophils 0.10 Absolute Basophils 0.03 Sodium 139 Potassium 3.8 Chloride 104 Carbon Dioxide 26.1 Anion Gap 8.9 BUN 19 H Creatinine 0.9 Est GFR (CKD-EPI 2020) 93.61 Glucose 88 Calcium 8.2 L Magnesium 2.0 PFSH All Active Problems Vitamin D deficiency (Chronic) Erectile dysfunction (Chronic) BPH without urinary obstruction (Chronic 06/16/13) Chronic low back pain with right-sided sciatica (Chronic 05/25/18) Chronic pain (Chronic 11/02/11) 11/27 low risk; neg comorbid psych. Crohn's disease with complication (Chronic 11/02/11) Dr. 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 JOSIE Panchal Arthritis of carpometacarpal (CMC) joint of right thumb (Acute) 12/20/19-and STT joint arthritis, [facility] hand and upper extremity program. JOSIE Panchal Vitamin B 12 deficiency (Acute) Ileostomy in place (Chronic) Gastroesophageal reflux disease (Chronic) Degenerative joint disease of right knee (Chronic) Depo-Medrol injection: 05/16/2021 Macrocytosis (Acute) Hypomagnesemia (Acute) Medical History Bowel obstruction (11/02/14) Chronic daily headache COVID (~10/23/22) Multiple gastric ulcers (12/21/14) 03/28/2015 EGD: normal Neurostimulator device in situ Left throacic region per pt. SARS-CoV-2 positive (~03/04/22) 04/2022 Surgical History History of esophagogastroduodenoscopy (EGD) 10/21/20 [facility] stomach: mild antral erythema History of knee surgery PCL reconstruction History of total right knee replacement (09/30/21) DOS 09/30/21 Left lateral epicondylitis s/p debridement S/P proctocolectomy S/P small bowel resection Status post appendectomy Status post closed fracture of right femur internal fixation - which has been removed Status post ileostomy Status post laminectomy (~12/28/14) Lumbar laminectomy 1980;199512/28/14 thoracic laminectomy and spinal cord stimulator Status post tonsillectomy and adenoidectomy Family History Mother , COPD COPD (chronic obstructive pulmonary disease) Rheumatoid arthritis Father COPD (chronic obstructive pulmonary disease) Dementia Social History Smoking/Tobacco Use Status: Former Tobacco Use Quit Date: 10/18/90 Tobacco: How many years used: 4 Smoking risk assessment performed?: Yes Alcohol Intake: current Alcohol Intake frequency: holidays/special occasions only Drug use: Never Substance use type: does not use Adopted: No (Adopted by father) Caregiver/Support person: No Foster care: No Household members: spouse Housing: house Number of Children: 1 Communication Needs: Corrective Lenses Education Level: high school Do you need help understanding health information?: Rarely current occupation: Retired Pets and animals: Yes Pets and animals: cat(s) Sexually active: Yes Do you think of yourself as: straight/heterosexual Current gender identity: male What is your relationship status?: How often do you talk on the phone with friends or family?: decline to answer How often do you get together with friends or relatives?: once per week Do you belong to any clubs or organized social groups?: yes Panel score (0-1 are the most socially isolated patients): 2 What type of physical activity do you participate in: walking Duration: > 90 minutes/day Frequency: daily Kelli/Adventism: Alevism Special kelli needs: No Seatbelt use: always Helmet use: Yes Drive intox or ride w/intox contract driver: No Water heater temp set <120 deg: No (comes off wood stove) Working smoke detector in home: Yes Fire extinguisher in home: Yes Carbon monox detector in home: Yes Firearms in home: Yes Firearms unloaded and locked: Yes Do you feel safe at home: Yes Do you feel safe in your relationship?: Yes Time Spent with Patient Time Spent with Patient: <45 minutes Time was spent: preparing to see the patient(eg.review tests), obtaining and/or reviewing separately otained hiistory, ordering medications,tests, procedures, referring, communicating with other health manager critical care, indepentently interpreting results, counseling the patient and care coordination
--- NOTE | 2022-11-30 16:54 | PDOC.CMDIS ---
- If Service Date Differs Date of service: 11/30/22 Time of Service: 16:54 LACE Index Scoring Tool - Questions: Length of Stay (in days): 2 Acuity (Admit via E.D.?): Yes Comorbidities: Previous M.I. E.D. Visits: 1 - Answers: Total Score: 7 Risk of Readmission: Low Risk Care Management Discharge Reason for Hospitalization: bowel obstruction Discharge Plan: Meir will return home with no new services. His will drive him home via private vehicle. He will follow up with his PCP and discharge plan of care. He is happy to be going home. Patient/Family Education Needs: Review discharge instructions and limitations, discussion of self care needs including ask me three.
== END 2022-11-30 17:35 | disposition home or self-care (01) | DRG 387 ==
LOC: ER 23:04 → MS 11-29 03:18
PROVIDERS: Admitting Provider Surgery; Emergency Provider Registered Nurse Emergency; PCP Nurse Practitioner Family; Visit Provider Surgery
DX: K50.912 Crohn's disease, unspecified, with intestinal obstruction (principal); Z93.2 Ileostomy status; Z90.49 Acquired absence of other specified parts of digestive tract; M54.41 Lumbago with sciatica, right side; N40.0 Benign prostatic hyperplasia without lower urinary tract symptoms; E78.5 Hyperlipidemia, unspecified; R73.01 Impaired fasting glucose; M85.88 Other specified disorders of bone density and structure, other site; M06.9 Rheumatoid arthritis, unspecified; I10 Essential (primary) hypertension; E53.8 Deficiency of other specified B group vitamins; K21.9 Gastro-esophageal reflux disease without esophagitis; E83.42 Hypomagnesemia; R51.9 Headache, unspecified; Z86.16 Personal history of COVID-19; Z87.11 Personal history of peptic ulcer disease; Z96.82 Presence of neurostimulator; Z96.651 Presence of right artificial knee joint; Z87.891 Personal history of nicotine dependence; Z79.69 Long term (current) use of other immunomodulators and immunosuppressants; Z79.4 Long term (current) use of insulin
CPT/HCPCS: 36410; 36415; 80048; 80053; 83690; 87635; 93005; 96374; 96375; 99221; 99232; 99239; 99285; 71046; 74177; 81003; 83605; 83735; 84484; 85025; 93010; J0131; J1170; J1885; J2405; J3010; J3475; J3490

== ENCOUNTER 2023-01-21 03:26 | Outpatient (CLI) | payer MEDICARE, BC, SELFPAY ==
[2023-01-21 15:16] LABS: Abs Immature Grans 0.06 10^3/uL (0.0-0.06); Absolute Eosinophil Count 0.06 10^3/uL (0.0-0.7); Basophils % 0.3; Eosinophils % 0.4; HGB 13.9 g/dL (13.5-17.5); Immature Grans % 0.4; Lymphocytes % 19.9; MCH 34.1 pg (27.0-33.0); MCHC 34.8 % (32.0-36.0); MCV 98 fL (80-95); MPV 8.4 fL (8.0-11.0); Monocytes % 10.5; Neutrophils % 68.5; Platelet Count 274 10^3/uL (130-400); RBC 4.08 10^6/uL (4.36-5.78); RDW 11.9 % (11.8-14.1); RDW-SD 43.3 fL; WBC 14.44 10^3/uL (4.4-10.8)
[2023-01-21 15:23] LABS: Absolute Basophil Count 0.04 10^3/uL (0.0-0.2); Absolute Lymphocyte Count 2.87 10^3/uL (1.2-3.4); Absolute Monocyte Count 1.52 10^3/uL (0.1-0.8); Absolute Neutrophil Count 9.89 10^3/uL (1.2-6.7)
[2023-01-21 15:34] LABS: Diff Comment Diff Reviewed; RBC Morphology Normal
[2023-01-21 15:44] LABS: Hemoglobin A1C 5.4 % (<5.7)
[2023-01-21 15:53] LABS: ALT 30 U/L (16-63); AST 20 U/L (15-37); Albumin 4.1 g/dL (3.4-5.0); Alkaline Phosphatase 65 U/L (46-116); Anion Gap 7.9 mmol/L (3-11); BUN 20 mg/dL (7-18); Bilirubin, Total 0.6 mg/dL (0.2-1.0); CO2 28.1 mmol/L (21.0-32.0); CREATININE 1.1 mg/dL (0.70-1.30); Calcium 8.9 mg/dL (8.5-10.1); Calculated LDL 42 mg/dL (<100); Chloride 101 mmol/L (98-107); Cholesterol 153 mg/dL (<200); Estimated GFR 73.58 (mL/min/1.73m2); Glucose 102 mg/dL (74-106); HDL Cholesterol 101 mg/dL (40-60); Magnesium 1.1 mg/dL (1.8-2.4); Potassium 3.8 mmol/L (3.5-5.1); Sodium 137 mmol/L (136-145); Total Protein 7.9 g/dL (6.4-8.2); Triglyceride 52 mg/dL (<150)
[2023-01-21 16:34] LABS: Vitamin D 25 Total 17.9 ng/mL (30-100)
== END 2023-01-21 03:27 | disposition home or self-care (01) ==
LOC: LBO 03:26
PROVIDERS: PCP Nurse Practitioner Family; Visit Provider Nurse Practitioner Family
DX: D75.89 Other specified diseases of blood and blood-forming organs (principal); R73.01 Impaired fasting glucose; E55.9 Vitamin D deficiency, unspecified; I10 Essential (primary) hypertension; E78.5 Hyperlipidemia, unspecified
CPT/HCPCS: 36415; 80053; 80061; 82306; 83036; 83735; 85025

== ENCOUNTER 2023-02-01 02:26 | Outpatient (CLI) | payer MEDICARE, BC, SELFPAY ==
[2023-02-01 15:01] LABS: Abs Immature Grans 0.01 10^3/uL (0.0-0.06); Absolute Basophil Count 0.04 10^3/uL (0.0-0.2); Absolute Eosinophil Count 0.13 10^3/uL (0.0-0.7); Absolute Lymphocyte Count 2.29 10^3/uL (1.2-3.4); Absolute Monocyte Count 0.96 10^3/uL (0.1-0.8); Absolute Neutrophil Count 5.16 10^3/uL (1.2-6.7); Basophils % 0.5; Eosinophils % 1.5; HCT 38.1 % (40.0-50.0); HGB 13.2 g/dL (13.5-17.5); Immature Grans % 0.1; Lymphocytes % 26.7; MCH 33.8 pg (27.0-33.0); MCHC 34.6 % (32.0-36.0); MCV 98 fL (80-95); MPV 8.7 fL (8.0-11.0); Monocytes % 11.2; Platelet Count 248 10^3/uL (130-400); RDW 12.2 % (11.8-14.1); RDW-SD 43.9 fL; WBC 8.59 10^3/uL (4.4-10.8)
[2023-02-01 16:14] LABS: ALT 29 U/L (16-63); AST 25 U/L (15-37); Albumin 3.9 g/dL (3.4-5.0); Alkaline Phosphatase 61 U/L (46-116); Anion Gap 6.9 mmol/L (3-11); BUN 12 mg/dL (7-18); Bilirubin, Total 0.5 mg/dL (0.2-1.0); CO2 27.1 mmol/L (21.0-32.0); CREATININE 0.8 mg/dL (0.70-1.30); Calcium 8.4 mg/dL (8.5-10.1); Chloride 104 mmol/L (98-107); Glucose 93 mg/dL (74-106); Potassium 3.4 mmol/L (3.5-5.1); Sodium 138 mmol/L (136-145); Total Protein 7.4 g/dL (6.4-8.2)
== END 2023-02-01 02:27 | disposition home or self-care (01) ==
LOC: LBO 02:26
PROVIDERS: PCP Nurse Practitioner Family; Visit Provider Student in an Organized Health Care Education/Training Program
DX: M19.90 Unspecified osteoarthritis, unspecified site (principal); Z79.899 Other long term (current) drug therapy; M06.9 Rheumatoid arthritis, unspecified
CPT/HCPCS: 36415; 80053; 85025

== ENCOUNTER 2023-04-15 04:00 | Outpatient (CLI) | payer MEDICARE, BC, SELFPAY ==
[2023-04-15 15:12] LABS: Abs Immature Grans 0.01 10^3/uL (0.0-0.06); Absolute Basophil Count 0.05 10^3/uL (0.0-0.2); Absolute Eosinophil Count 0.21 10^3/uL (0.0-0.7); Absolute Lymphocyte Count 2.12 10^3/uL (1.2-3.4); Absolute Monocyte Count 0.94 10^3/uL (0.1-0.8); Absolute Neutrophil Count 4.09 10^3/uL (1.2-6.7); Basophils % 0.7; Eosinophils % 2.8; HCT 37.2 % (40.0-50.0); HGB 12.9 g/dL (13.5-17.5); Immature Grans % 0.1; Lymphocytes % 28.6; MCH 34.9 pg (27.0-33.0); MCHC 34.7 % (32.0-36.0); MCV 101 fL (80-95); MPV 9.1 fL (8.0-11.0); Monocytes % 12.7; Neutrophils % 55.1; Platelet Count 281 10^3/uL (130-400); RDW 12.4 % (11.8-14.1); RDW-SD 46.4 fL; WBC 7.42 10^3/uL (4.4-10.8)
[2023-04-15 15:43] LABS: ALT 28 U/L (16-63); AST 25 U/L (15-37); Alkaline Phosphatase 67 U/L (46-116); Anion Gap 8.2 mmol/L (3-11); BUN 17 mg/dL (7-18); Bilirubin, Total 0.8 mg/dL (0.2-1.0); CO2 27.8 mmol/L (21.0-32.0); CREATININE 0.9 mg/dL (0.70-1.30); Calcium 8.9 mg/dL (8.5-10.1); Chloride 100 mmol/L (98-107); Estimated GFR 93.03 (mL/min/1.73m2); Glucose 100 mg/dL (74-106); Potassium 3.4 mmol/L (3.5-5.1); Sodium 136 mmol/L (136-145); Total Protein 7.9 g/dL (6.4-8.2)
[2023-04-15 16:18] LABS: Vitamin D 25 Total 19.2 ng/mL (30-100)
[2023-04-15 16:21] LABS: Vitamin B12 310 pg/mL (193-986)
== END 2023-04-15 04:01 | disposition home or self-care (01) ==
LOC: LBO 04:00
PROVIDERS: Student in an Organized Health Care Education/Training Program; PCP Nurse Practitioner Family; Visit Provider Nurse Practitioner Family
DX: M19.90 Unspecified osteoarthritis, unspecified site
CPT/HCPCS: 36415; 80053; 82306; 82607; 83735; 85025

== ENCOUNTER → 2023-06-07 00:50 | Outpatient (CLI) | payer MEDICARE, BC, SELFPAY ==
--- NOTE | 2023-06-07 07:30 | DI.CT_ITS ---
Exam(s) CT LUMBAR SPINE SI JOINTS WO EXAM: CT LUMBAR SPINE SI JOINTS WO CLINICAL HISTORY: worsening of chronic pain/sciatica,f/u ct 2018,rt sided lumbago,m54.41. TECHNIQUE: Imaging Protocol: Axial computed tomography images with coronal and sagittal reformatted images were created and reviewed COMPARISON: CT LUMBAR SPINE WITHOUT CONTRAST from 03/30/[address] ABDOMEN PELVIS W from 11/28/2022 FINDINGS: Bones: The last intervertebral disc space is designated the L5/S1 level for the numbering purpose of this examination. There are endplate osteophytes throughout the lumbar spine. Vacuum discs and disc space narrowing are seen at T12-L1, L1-L2 and L4-L5. There is no evidence of spondylolysis or spondy lolisthesis. Laminectomy defects are seen at L4 and L5. A Schmorl's node is again seen at the superi or endplate of L4. No aggressive osseous lesions are identified. There is no acute fracture or dislo cation. T12-L1: No disc herniations or bulges are present. No central spinal canal or neural foraminal steno sis. L1-2: There is a mild diffuse disc bulge. No central spinal canal or neural foraminal stenosis. L2-3: There is a mild asymmetric disc bulge to the left. No significant central spinal canal stenos is is seen. No significant neural foraminal stenosis is seen. L3-4: There is a mild diffuse disc bulge. No significant central spinal canal stenosis is present. There is no significant neural foraminal stenosis. L4-5: No disc herniations or bulges are present. There is no significant central spinal canal stenos is. Degenerative changes of the facets are present. There is gsrx-xl-vvogblsm bilateral neural fora abebe stenosis. L5-S1: No disc herniations or bulges are present. No significant central spinal canal stenosis. The re are degenerative changes of the facets. There is resultant mild bilateral neural foraminal narrow ing. Soft Tissues: The visualized SI joints and sacrum are will maintained. High density material is seen layering in the gallbladder. This may represent wall calcification or small tiny stones. There is no biliary ductal dilatation. There is an ostomy in the right lower quadrant. There is a battery pa ck again seen in the left flank subcutaneous tissues. IMPRESSION: 1. There is again seen multilevel degenerative change throughout the lumbar spine. Postsurgical black ges are seen at L4 and L5. 2. No significant central spinal canal stenosis. Multilevel neural foraminal stenosis is seen. It i s slightly progressed at the L4-5 level since the prior examination. There is now urpi-cf-irczagna b ilateral neural foraminal stenosis at L4-L5. 3. High density material along the posterior aspect of the gallbladder. This was not present on the prior examination. This may be calcification within the wall of the gallbladder versus multiple ston es. Follow-up as clinically appropriate. No definite biliary ductal dilatation is seen. Unexpected findings RADIATION DOSE DELIVERED: 447.96mGy.cm Total DLP 447.96mGy.cm Total DLP DATA REPOSITORY: All CT scans at this facility are submitted to the National Radiology Data Registry (NRDR) Dose Index Registry (DIR) with the [employer] (A[employer]). RADIATION OPTIMIZATION: All CT scans at this facility use at least one of these dose optimization te chniques: automated exposure control; mA and/or kV adjustment per patient size (includes targeted exa ms where dose is matched to clinical indication); or iterative reconstruction.
== END ==
PROVIDERS: PCP Nurse Practitioner Family; Visit Provider Nurse Practitioner Family
DX: M54.41 Lumbago with sciatica, right side; M99.63 Osseous and subluxation stenosis of intervertebral foramina of lumbar region; R93.2 Abnormal findings on diagnostic imaging of liver and biliary tract
CPT/HCPCS: 36415; 72131; 83735; 84132

== ENCOUNTER 2023-06-07 04:29 | Outpatient (CLI) | payer MEDICARE, BC, SELFPAY ==
[2023-06-07 10:50] LABS: Magnesium 1.1 mg/dL (1.8-2.4)
== END 2023-06-07 04:30 | disposition home or self-care (01) ==
LOC: LBO 04:29
PROVIDERS: PCP Nurse Practitioner Family; Visit Provider Nurse Practitioner Family
DX: E83.42 Hypomagnesemia (principal); I10 Essential (primary) hypertension; K50.918 Crohn's disease, unspecified, with other complication
CPT/HCPCS: 36415; 83735; 84132

== ENCOUNTER 2023-07-01 13:40 | Outpatient (CLI) | payer MEDICARE, BC, SELFPAY ==
--- NOTE | 2023-07-01 13:30 | RT.EKG_ITS ---
APPROVED REPORT Exam: Resting ECG Reason for Exam: Preoperative evaluation Patient Location: O HR:68 bpm ECG Measurements Heart Rate 68 AXIS GA 141 P 78 QRSd 120 QRS -51 QT 397 T 73 QTc 423 Conclusion Sinus rhythm...normal P axis, V-rate 50- 99 Left anterior fascicular block...axis(240,-40), init forces inf Borderline ST elevation, anterior leads...ST >0.15mV in V1-V4
== END 2023-07-01 13:41 | disposition home or self-care (01) ==
LOC: DI.KIM 13:41
PROVIDERS: PCP Nurse Practitioner Family; Visit Provider Nurse Practitioner Family
DX: Z01.818 Encounter for other preprocedural examination (principal)
CPT/HCPCS: 93010

== ENCOUNTER → 2023-07-01 15:02 | Outpatient (CLI) | payer MEDICARE, BC, SELFPAY ==
--- NOTE | 2023-07-01 15:29 | DI.RAD_ITS ---
Exam(s) XR CERVICAL SP COMP W FLEX/EXT EXAM: XR CERVICAL SP COMP W FLEX/EXT CLINICAL HISTORY: r/o atlantoaxial subluxation prior to surgery M06.9 ARTHRITIS M54.2. TECHNIQUE: 2D digital imaging was performed. COMPARISON: No exams were available for comparison FINDINGS: BONES: No fracture or destructive lesion. Vertebral bodies are unremarkable. Facet degenerative lambert es. Right-sided neural foraminal narrowing at C 3 4, C5-6 and C6-7. Left-sided neural foraminal kim rowing is milder C5-6. there are degenerative changes with narrowing of the atlantoaxial joint, with spurring. There is also degenerative change between the base of the skull and C1. There is no wide rahul of the atlantoaxial joint DISKS: The C2-3 and C4-5 intervertebral disc spaces are maintained. There is moderate to severe narro wing of the C5-6 and C6-7 disc spaces with endplate osteophytes. Mild narrowing of the C3-4 disc spa ce. ALIGNMENT: Cervical spinal alignment is within normal limits. The odontoid and atlantoaxial articulat ions are normal. SOFT TISSUE: Normal. The lung apices are clear. IMPRESSION: Degenerative changes, greatest at C5-6. No evidence of the Leno axial subluxation. Degenerative changes C1-2. DATA REPOSITORY: RADIATION DOSE DELIVERED:
== END ==
PROVIDERS: PCP Nurse Practitioner Family; Visit Provider Nurse Practitioner Family
DX: Z01.818 Encounter for other preprocedural examination; M50.022 Cervical disc disorder at C5-C6 level with myelopathy
CPT/HCPCS: 72052

== ENCOUNTER → 2023-07-13 01:24 | Outpatient (CLI) | payer MEDICARE, BC, SELFPAY ==
--- NOTE | 2023-07-13 07:00 | DI.US_ITS ---
Exam(s) US ABDOMEN EXAM: US ABDOMEN CLINICAL HISTORY: stones vs. inflammation vs. mass,f/u abnl ct,gb material, k82.8 TECHNIQUE: Ultrasound abdomen performed using standard protocol. COMPARISON: US ABDOMEN ULTRASOUND from 05/03/[address] ABDOMEN PELVIS W from 11/28/2022 FINDINGS: ABDOMINAL AORTA AND IVC: Visualized portions normal caliber. PANCREAS: Normal where visualized. LIVER: Normal. Hepatopedal flow in the Portal Vein. GALLBLADDER:No evidence of cholelithiasis. No evidence of wall thickening. No pericholecystic fluid i dentified. BILIARY SYSTEM: Common bile duct measures < 7 mm. No intrahepatic biliary ductal dilation. MICHAUD'S SIGN: Negative. KIDNEYS: Kidneys are symmetric in size. No evidence of renal calculi. No evidence of hydronephrosis. No renal mass or cyst identified. SPLEEN: Not enlarged. ASCITES: None seen. IMPRESSION: Normal sonographic appearance of the upper abdomen. DATA REPOSITORY:
== END ==
PROVIDERS: PCP Nurse Practitioner Family; Visit Provider Nurse Practitioner Family
DX: K82.8 Other specified diseases of gallbladder (principal)
CPT/HCPCS: 76700

== ENCOUNTER 2023-08-09 03:28 | Outpatient (CLI) | payer MEDICARE, BC, SELFPAY ==
[2023-08-09 16:02] LABS: Abs Immature Grans 0.02 10^3/uL (0.0-0.06); Absolute Basophil Count 0.07 10^3/uL (0.0-0.2); Absolute Eosinophil Count 0.26 10^3/uL (0.0-0.7); Absolute Lymphocyte Count 1.74 10^3/uL (1.2-3.4); Absolute Monocyte Count 0.94 10^3/uL (0.1-0.8); Absolute Neutrophil Count 5.32 10^3/uL (1.2-6.7); Basophils % 0.8; Eosinophils % 3.1; HCT 36.5 % (40.0-50.0); HGB 12.6 g/dL (13.5-17.5); Immature Grans % 0.2; Lymphocytes % 20.8; MCHC 34.5 % (32.0-36.0); MCV 98 fL (80-95); Monocytes % 11.3; Neutrophils % 63.8; Platelet Count 265 10^3/uL (130-400); RBC 3.71 10^6/uL (4.36-5.78); RDW 12.5 % (11.8-14.1); RDW-SD 44.9 fL; WBC 8.35 10^3/uL (4.4-10.8)
[2023-08-09 17:13] LABS: ALT 30 U/L (16-63); AST 50 U/L (15-37); Albumin 3.8 g/dL (3.4-5.0); Alkaline Phosphatase 58 U/L (46-116); Anion Gap 9.6 mmol/L (3-11); BUN 16 mg/dL (7-18); Bilirubin, Total 0.7 mg/dL (0.2-1.0); CO2 25.4 mmol/L (21.0-32.0); CREATININE 0.9 mg/dL (0.70-1.30); Chloride 102 mmol/L (98-107); Estimated GFR 93.03 (mL/min/1.73m2); Glucose 79 mg/dL (74-106); Magnesium 1.2 mg/dL (1.8-2.4); Potassium 3.9 mmol/L (3.5-5.1); Sodium 137 mmol/L (136-145); Total Protein 7.8 g/dL (6.4-8.2)
[2023-08-09 17:28] LABS: Vitamin D 25 Total 21.3 ng/mL (30-100)
== END 2023-08-09 03:29 | disposition home or self-care (01) ==
PROVIDERS: PCP Nurse Practitioner Family; Visit Provider Nurse Practitioner Family
DX: E83.42 Hypomagnesemia; E87.5 Hyperkalemia
CPT/HCPCS: 36415; 80053; 82306; 83735; 84132; 85025

== ENCOUNTER 2023-10-08 21:57 | Outpatient (CLI) | payer MEDICARE, BC, SELFPAY ==
--- NOTE | 2023-10-08 10:16 | DI.RAD_ITS ---
Exam(s) XR KNEE RT 2V AP,LAT EXAM: XR KNEE RT 2V AP,LAT CLINICAL HISTORY: f/u of right TKA. TECHNIQUE: 2D digital imaging was performed. Two images were obtained. AP and lateral views were ob tained. COMPARISON: No priors for comparison. FINDINGS: BONES: There are stable post operative changes of a right total knee replacement present. No fractur e or dislocation. There is an enthesophyte at the superior patella. JOINTS: The orthopedic hardware is in good position. No evidence of hardware loosening. There is a small joint effusion. SOFT TISSUE: Normal. IMPRESSION: Right total knee replacement. DATA REPOSITORY: RADIATION DOSE DELIVERED:
== END 2023-10-08 21:58 | disposition home or self-care (01) ==
LOC: DIORS 21:58
PROVIDERS: PCP Nurse Practitioner; Referring Provider Nurse Practitioner; Visit Provider Physician Assistant
DX: Z47.1 Aftercare following joint replacement surgery (principal); Z96.651 Presence of right artificial knee joint
CPT/HCPCS: 99213; 73560

== ENCOUNTER 2023-10-20 10:35 | Outpatient (CLI) | payer MEDICARE, BC, SELFPAY ==
[2023-10-20 11:19] VITALS: BP 137/68; PULSE 67; RESP 20; TEMP 36.6; O2SAT 99
--- NOTE | 2023-10-20 12:05 | DI.RAD_ITS ---
Exam(s) XR PAIN CLINIC SACRIOILIAC 2V EXAM: XR PAIN CLINIC SACRIOILIAC 2V CLINICAL HISTORY: DX: Right Sacroiliac dysfunction. TECHNIQUE: Fluoroscopy was provided for the referring physician for guidance with performing pain cl inic injection procedure. COMPARISON: No exams were available for comparison FINDINGS: Please see procedure note for details. Fluoro time: 39.8 seconds RADIATION DOSE DELIVERED: Ka,r=6.42 mGy
[2023-10-20 12:14] VITALS: BP 131/61; PULSE 66; RESP 19; O2SAT 98
[2023-10-20] MEDS: Omnipaque 240 MG/ML 50 ML BTL IJ (12:15)
[2023-10-20] MEDS: methylPREDNISolone ACETATE 80 MG/ML VIAL IJ (12:16)
--- NOTE | 2023-10-21 09:35 | PDOC.PAIN ---
Date of service: 10/20/23 Time of Service: 12:00 Pain Managment Procedure Note Procedure Note Procedure Note: PROCEDURE NOTE RIGHT INTRA-ARTICULAR SACROILIAC JOINT INJECTION Date of Service: October 20, 2023 Patient: Arturo Lopez Provider: Arturo Taylor DO, MPH COMMENTS: I previously evaluated the patient in the office and their symptoms in relation to the sacroiliac joint pain have remained the same. Pre-operative diagnosis: Sacroiliac joint dysfunction Post-operative diagnosis: Same Pre-procedure pain: VAS= 8/10 Arturo Lopez has been referred to [facility] for a Right intra-articular Sacroiliac joint injection. Arturo was interviewed and the medical record reviewed. There were no medical, pharmacologic, radiographic or other structural contraindications to attempting a fluoroscopically-guided, contrast-enhanced, intra-articular Sacroiliac joint injection. The risks, benefits, and potential side effects of this procedure were reviewed with the patient. Questions and concerns were addressed. After it was clear that Arturo was fully informed about the procedure, the printed consent form was signed by the patient and myself. Arturo was placed in the prone position on the fluoroscopy table and an automated blood pressure cuff, 3 lead EKG, and pulse oximeter were applied. The skin entry point for approaching the Right sacroiliac joint was identified under the most advantageous fluoroscopic view and marked. Following thorough Chlorhexadine preparation of the skin and draping with sterile surgical drapes, 2 mls of 1% lidocaine was infiltrated into the skin at the entry point and the surrounding subcutaneous tissues. Next, a 3.5 22G spinal needle was placed under fluoroscopic guidance into the Right sacroiliac joint. Intra-articular placement was confirmed by a clear arthrogram resulting from the injection of 0.25ml of Omnipaque-240. Next, 1 ml of Depo- Medrol 80 mg/ml was injected intra-articularly with an initial reproduction of a significant component of the usual pain. This was followed with 1 ml of 1% Lidocaine. The needle was then removed without difficulty. (49 ml of Omnipaque-240 was wasted). Arturo's vital signs were stable throughout the procedure and were as recorded in nursing records. Follow up plans and appointments were discussed with Arturo. Post procedure instructions were given as documented in nursing records. Having met discharge criteria, Arturo was [facility] from the [facility]. COMMENTS: Post-procedure pain: VAS= 3/10. If the patient receives at least 50% improvement in pain and/or function for at least 3 months, this procedure can be repeated if needed. I personally performed this entire procedure. ARTURO TAYLOR DO, MPH ABPMR-subspecialty board certification in Pain Medicine [facility]
== END 2023-10-20 10:36 | disposition home or self-care (01) ==
LOC: PC 10:36
PROVIDERS: PCP Nurse Practitioner; Visit Provider Preventive Medicine Occupational Medicine
DX: M54.50 Low back pain, unspecified (principal); M46.1 Sacroiliitis, not elsewhere classified
CPT/HCPCS: 123; 27096; 72200; 00123; J1040; Q9967

== ENCOUNTER 2023-10-26 03:37 | Outpatient (CLI) | payer MEDICARE, BC, SELFPAY ==
[2023-10-26 17:01] LABS: Abs Immature Grans 0.02 10^3/uL (0.0-0.06); Absolute Basophil Count 0.07 10^3/uL (0.0-0.2); Absolute Eosinophil Count 0.15 10^3/uL (0.0-0.7); Absolute Lymphocyte Count 2.23 10^3/uL (1.2-3.4); Absolute Monocyte Count 0.88 10^3/uL (0.1-0.8); Absolute Neutrophil Count 5.46 10^3/uL (1.2-6.7); Basophils % 0.8; Eosinophils % 1.7; HCT 38.6 % (40.0-50.0); HGB 13.4 g/dL (13.5-17.5); Immature Grans % 0.2; Lymphocytes % 25.3; MCH 35.1 pg (27.0-33.0); MCHC 34.7 % (32.0-36.0); MCV 101 fL (80-95); MPV 10.2 fL (8.0-11.0); Platelet Count 268 10^3/uL (130-400); RBC 3.82 10^6/uL (4.36-5.78); RDW 12.5 % (11.8-14.1); RDW-SD 46.7 fL; WBC 8.81 10^3/uL (4.4-10.8)
[2023-10-26 18:09] LABS: ALT 22 U/L (16-63); AST 20 U/L (15-37); Albumin 3.9 g/dL (3.4-5.0); Alkaline Phosphatase 56 U/L (46-116); Anion Gap 8.1 mmol/L (3-11); BUN 13 mg/dL (7-18); Bilirubin, Total 0.7 mg/dL (0.2-1.0); CO2 27.9 mmol/L (21.0-32.0); CREATININE 0.9 mg/dL (0.70-1.30); Calcium 9.1 mg/dL (8.5-10.1); Chloride 102 mmol/L (98-107); Estimated GFR 93.03 (mL/min/1.73m2); Glucose 107 mg/dL (74-106); Sodium 138 mmol/L (136-145); Total Protein 7.4 g/dL (6.4-8.2)
[2023-10-26 18:13] LABS: ALT 21 U/L (16-63); AST 20 U/L (15-37); Albumin 3.8 g/dL (3.4-5.0); Alkaline Phosphatase 55 U/L (46-116); Bilirubin, Direct 0.2 mg/dL (0.0-0.2); Bilirubin, Total 0.7 mg/dL (0.2-1.0); Magnesium 1.1 mg/dL (1.8-2.4); Total Protein 7.6 g/dL (6.4-8.2)
[2023-10-26 18:47] LABS: Vitamin D 25 Total 19.4 ng/mL (30-100)
== END 2023-10-26 03:38 | disposition home or self-care (01) ==
LOC: LBO 03:37
PROVIDERS: Student in an Organized Health Care Education/Training Program; Absent Provider Nurse Practitioner; PCP Nurse Practitioner; Referring Provider Nurse Practitioner; Visit Provider Nurse Practitioner
DX: E83.42 Hypomagnesemia; R79.9 Abnormal finding of blood chemistry, unspecified; M06.4 Inflammatory polyarthropathy
CPT/HCPCS: 36415; 80053; 80076; 82306; 83735; 85025

== ENCOUNTER 2023-11-02 03:39 | Outpatient (RCR) | payer MEDICARE, BC, SELFPAY ==
[2023-11-02] MEDS: MAGNESIUM SULFATE 4 GM/100 ML BAG IVPB (11:26)
[2023-11-02] MEDS: Normal Saline Flush 10 ML SYR IVP (11:26)
[2023-11-02 14:09] LABS: Magnesium 2.9 mg/dL (1.8-2.4)
== END 2023-11-17 23:59 | disposition home or self-care (01) ==
LOC: INF 03:39
PROVIDERS: PCP Nurse Practitioner; Visit Provider Family Medicine
DX: Z79.899 Other long term (current) drug therapy; K50.919 Crohn's disease, unspecified, with unspecified complications
CPT/HCPCS: 36415; 96365; 96366; 83735; J3475

== ENCOUNTER 2023-12-28 04:18 | Outpatient (CLI) | payer MEDICARE, BC, SELFPAY | END 2023-12-28 04:19 | disposition home or self-care (01) | LOC: LBO 04:18 | PROVIDERS: PCP Nurse Practitioner; Visit Provider Nurse Practitioner | DX: E83.42 Hypomagnesemia (principal) | CPT/HCPCS: 36415; 83735 ==

== ENCOUNTER 2024-01-07 01:04 | Outpatient (RCR) | payer MEDICARE, BC, SELFPAY ==
[2024-01-07] MEDS: MAGNESIUM SULFATE 4 GM/100 ML BAG IVPB (10:44)
[2024-01-07] MEDS: Normal Saline Flush 10 ML SYR IVP (10:47)
[2024-01-07 14:02] LABS: Magnesium 4.1 mg/dL (1.8-2.4)
[2024-01-07 16:35] LABS: Lab Add On Test DONE
[2024-01-07 17:04] LABS: Anion Gap 9.6 mmol/L (3-11); BUN 17 mg/dL (7-18); CO2 24.4 mmol/L (21.0-32.0); CREATININE 0.8 mg/dL (0.70-1.30); Calcium 8.9 mg/dL (8.5-10.1); Chloride 104 mmol/L (98-107); Glucose 98 mg/dL (74-106); Potassium 4.4 mmol/L (3.5-5.1); Sodium 138 mmol/L (136-145)
[2024-01-07 17:31] LABS: Vitamin D 25 Total 17.4 ng/mL (30-100)
== END 2024-01-16 23:59 | disposition home or self-care (01) ==
LOC: INF 01:04
PROVIDERS: Student in an Organized Health Care Education/Training Program; PCP Nurse Practitioner; Visit Provider Nurse Practitioner
DX: E83.42 Hypomagnesemia (principal)
CPT/HCPCS: 36415; 80048; 82306; 96365; 96366; 83735; J3475

== ENCOUNTER 2024-01-11 05:22 | Outpatient (CLI) | payer MEDICARE, BC, SELFPAY ==
[2024-01-11 16:47] LABS: Magnesium 1.4 mg/dL (1.8-2.4)
== END 2024-01-11 05:23 | disposition home or self-care (01) ==
PROVIDERS: PCP Nurse Practitioner; Visit Provider Nurse Practitioner
DX: E83.42 Hypomagnesemia (principal)
CPT/HCPCS: 36415; 83735

== ENCOUNTER 2024-01-27 05:26 | Outpatient (CLI) | payer MEDICARE, BC, SELFPAY ==
[2024-01-27 17:16] LABS: Magnesium 1.1 mg/dL (1.8-2.4)
== END 2024-01-27 05:27 | disposition home or self-care (01) ==
LOC: LBO 05:26
PROVIDERS: PCP Nurse Practitioner; Visit Provider Nurse Practitioner
DX: R79.0 Abnormal level of blood mineral (principal)
CPT/HCPCS: 36415; 83735

== ENCOUNTER 2024-02-08 05:01 | Outpatient (CLI) | payer MEDICARE, BC, SELFPAY ==
[2024-02-08 12:56] LABS: Abs Immature Grans 0.01 10^3/uL (0.0-0.06); Absolute Basophil Count 0.04 10^3/uL (0.0-0.2); Absolute Eosinophil Count 0.22 10^3/uL (0.0-0.7); Absolute Lymphocyte Count 2.05 10^3/uL (1.2-3.4); Absolute Neutrophil Count 3.58 10^3/uL (1.2-6.7); Basophils % 0.6; Eosinophils % 3.3; HCT 38.4 % (40.0-50.0); HGB 13.3 g/dL (13.5-17.5); Immature Grans % 0.1; Lymphocytes % 30.6; MCH 35.1 pg (27.0-33.0); MCHC 34.6 % (32.0-36.0); MCV 101 fL (80-95); MPV 9.3 fL (8.0-11.0); Monocytes % 11.9; Neutrophils % 53.5; Platelet Count 247 10^3/uL (130-400); RBC 3.79 10^6/uL (4.36-5.78); RDW 11.9 % (11.8-14.1); RDW-SD 44.6 fL
[2024-02-08 13:24] LABS: Magnesium 1.3 mg/dL (1.8-2.4)
[2024-02-08 13:27] LABS: ALT 29 U/L (16-63); AST 28 U/L (15-37); Alkaline Phosphatase 74 U/L (46-116); Anion Gap 9.2 mmol/L (3-11); BUN 16 mg/dL (7-18); Bilirubin, Total 0.6 mg/dL (0.2-1.0); CO2 26.8 mmol/L (21.0-32.0); Calcium 8.6 mg/dL (8.5-10.1); Chloride 101 mmol/L (98-107); Estimated GFR 81.98 (mL/min/1.73m2); Glucose 117 mg/dL (74-106); Sodium 137 mmol/L (136-145); Total Protein 7.7 g/dL (6.4-8.2)
== END 2024-02-08 05:02 | disposition home or self-care (01) ==
LOC: LBO 05:02
PROVIDERS: Student in an Organized Health Care Education/Training Program; PCP Nurse Practitioner; Visit Provider Nurse Practitioner
DX: E83.42 Hypomagnesemia; Z79.899 Other long term (current) drug therapy
CPT/HCPCS: 36415; 80053; 83735; 85025

== ENCOUNTER 2024-02-17 04:58 | Outpatient (CLI) | payer MEDICARE, BC, SELFPAY ==
[2024-02-17 13:08] LABS: Magnesium 1.3 mg/dL (1.8-2.4)
== END 2024-02-17 04:59 | disposition home or self-care (01) ==
PROVIDERS: PCP Nurse Practitioner; Visit Provider Nurse Practitioner
DX: E83.40 Disorders of magnesium metabolism, unspecified (principal)
CPT/HCPCS: 36415; 83735

== ENCOUNTER 2024-02-24 01:19 | Outpatient (CLI) | payer MEDICARE, BC, SELFPAY ==
[2024-02-24 16:36] LABS: Magnesium 1.3 mg/dL (1.8-2.4)
== END 2024-02-24 01:20 | disposition home or self-care (01) ==
PROVIDERS: PCP Nurse Practitioner; Visit Provider Nurse Practitioner
DX: E83.40 Disorders of magnesium metabolism, unspecified (principal); E83.42 Hypomagnesemia
CPT/HCPCS: 36415; 83735

== ENCOUNTER 2024-03-08 05:23 | Outpatient (CLI) | payer MEDICARE, BC, SELFPAY | END 2024-03-08 05:24 | disposition home or self-care (01) | LOC: LBO 05:24 | PROVIDERS: PCP Nurse Practitioner; Visit Provider Nurse Practitioner | DX: E83.42 Hypomagnesemia (principal); E83.40 Disorders of magnesium metabolism, unspecified | CPT/HCPCS: 36415; 83735 ==

== ENCOUNTER 2024-03-15 04:57 | Outpatient (RCR) | payer MEDICARE, BC, SELFPAY ==
[2024-03-15] MEDS: MAGNESIUM SULFATE 4 GM/100 ML BAG IVINF (07:35)
[2024-03-15] MEDS: Normal Saline Flush 10 ML SYR IVP (07:36)
== END 2024-03-17 23:59 | disposition home or self-care (01) ==
LOC: INF 04:57
PROVIDERS: PCP Nurse Practitioner; Visit Provider Nurse Practitioner
DX: E83.40 Disorders of magnesium metabolism, unspecified (principal)
CPT/HCPCS: 96365; 96366; J3475

== ENCOUNTER 2024-03-23 05:16 | Outpatient (CLI) | payer MEDICARE, BC, SELFPAY | END 2024-03-23 05:17 | disposition home or self-care (01) | LOC: LBO 05:16 | PROVIDERS: PCP Nurse Practitioner; Visit Provider Nurse Practitioner | DX: E83.40 Disorders of magnesium metabolism, unspecified (principal) | CPT/HCPCS: 36415; 83735 ==

== ENCOUNTER 2024-03-30 00:59 | Outpatient (CLI) | payer MEDICARE, BC, SELFPAY | END 2024-03-30 01:00 | disposition home or self-care (01) | PROVIDERS: PCP Nurse Practitioner; Visit Provider Family Medicine | DX: E83.42 Hypomagnesemia (principal) | CPT/HCPCS: 36415; 83735 ==

== ENCOUNTER 2024-04-05 09:35 | Outpatient (REF) | payer MEDICARE, BC, SELFPAY ==
[2024-04-05 14:45] LABS: Magnesium 1.1 mg/dL (1.8-2.4)
== END 2024-04-05 09:36 | disposition home or self-care (01) ==
LOC: LBN 09:35
PROVIDERS: PCP Nurse Practitioner; Visit Provider Nurse Practitioner
DX: E83.40 Disorders of magnesium metabolism, unspecified (principal)
CPT/HCPCS: 83735

== ENCOUNTER 2024-04-12 01:56 | Outpatient (CLI) | payer MEDICARE, BC, SELFPAY ==
[2024-04-14 22:06] LABS: Selenium, Serum 149 mcg/L (110-165)
[2024-04-15 11:08] LABS: Zinc, S 54 mcg/dL (60-106)
[2024-04-25 11:59] LABS: Misc Referral (MAYO) See Comments
== END 2024-04-12 01:57 | disposition home or self-care (01) ==
LOC: LBO 01:56
PROVIDERS: PCP Nurse Practitioner; Visit Provider Nurse Practitioner
DX: K50.919 Crohn's disease, unspecified, with unspecified complications (principal); E83.40 Disorders of magnesium metabolism, unspecified
CPT/HCPCS: 36415; 84630; 83735; 84255

== ENCOUNTER 2024-04-13 10:00 | Outpatient (RCR) | payer MEDICARE, BC, SELFPAY ==
[2024-03-29] MEDS: Normal Saline Flush 10 ML SYR IVP (11:57)
[2024-03-29] MEDS: MAGNESIUM SULFATE 4 GM/100 ML BAG IVINF (11:57)
[2024-04-07] MEDS: MAGNESIUM SULFATE 4 GM/100 ML BAG IVINF (08:38)
[2024-04-07] MEDS: Normal Saline Flush 10 ML SYR IVP (08:38)
[2024-04-13] MEDS: Normal Saline Flush 10 ML SYR IVP (10:15)
[2024-04-13] MEDS: MAGNESIUM SULFATE 4 GM/100 ML BAG IVINF (10:15)
== END 2024-04-16 23:59 | disposition home or self-care (01) ==
LOC: INF 10:00
PROVIDERS: PCP Nurse Practitioner; Visit Provider Nurse Practitioner
DX: E83.42 Hypomagnesemia (principal)
CPT/HCPCS: 96365; 96366; J3475

== ENCOUNTER 2024-04-19 02:32 | Outpatient (CLI) | payer MEDICARE, BC, SELFPAY ==
[2024-04-19 17:02] LABS: Calculated LDL 19 mg/dL (<100); Cholesterol 135 mg/dL (<200); HDL Cholesterol 97 mg/dL (40-60); Magnesium 1.2 mg/dL (1.8-2.4); Triglyceride 97 mg/dL (<150)
== END 2024-04-19 02:33 | disposition home or self-care (01) ==
LOC: LBO 02:32
PROVIDERS: PCP Nurse Practitioner; Visit Provider Nurse Practitioner
DX: E83.40 Disorders of magnesium metabolism, unspecified (principal); E78.5 Hyperlipidemia, unspecified
CPT/HCPCS: 36415; 80061; 83735

== ENCOUNTER 2024-05-15 01:41 | Outpatient (RCR) | payer MEDICARE, BC, SELFPAY ==
[2024-04-21] MEDS: Normal Saline Flush 10 ML SYR IVP (10:00)
[2024-04-21] MEDS: MAGNESIUM SULFATE 4 GM/100 ML BAG IVINF (10:00)
[2024-04-26] MEDS: Normal Saline Flush 10 ML SYR IVP (09:09)
[2024-04-26 09:38] LABS: Magnesium 1.4 mg/dL (1.8-2.4)
[2024-04-28] MEDS: MAGNESIUM SULFATE 4 GM/100 ML BAG IVINF (10:00)
[2024-04-28] MEDS: Normal Saline Flush 10 ML SYR IVP (10:00)
[2024-05-08 10:27] LABS: Magnesium 0.9 mg/dL (1.8-2.4)
[2024-05-08] MEDS: MAGNESIUM SULFATE 4 GM/100 ML BAG IVINF (10:50)
[2024-05-08] MEDS: Normal Saline Flush 10 ML SYR IVP (10:54)
[2024-05-15 09:42] LABS: Abs Immature Grans 0.01 10^3/uL (0.0-0.06); Absolute Basophil Count 0.03 10^3/uL (0.0-0.2); Absolute Eosinophil Count 0.18 10^3/uL (0.0-0.7); Absolute Lymphocyte Count 1.48 10^3/uL (1.2-3.4); Absolute Monocyte Count 0.64 10^3/uL (0.1-0.8); Absolute Neutrophil Count 2.88 10^3/uL (1.2-6.7); Basophils % 0.6 %; Eosinophils % 3.4 %; HCT 38.9 % (40.0-50.0); HGB 13.2 g/dL (13.5-17.5); Immature Grans % 0.2 %; Lymphocytes % 28.4 %; MCH 34.6 pg (27.0-33.0); MCHC 33.9 % (32.0-36.0); MCV 102 fL (80-95); MPV 9.6 fL (8.0-11.0); Monocytes % 12.3 %; Neutrophils % 55.1 %; Platelet Count 248 10^3/uL (130-400); RBC 3.81 10^6/uL (4.36-5.78); RDW 12.7 % (11.8-14.1); RDW-SD 47.6 fL; WBC 5.22 10^3/uL (4.4-10.8)
[2024-05-15 09:57] LABS: Magnesium 1.3 mg/dL (1.8-2.4)
[2024-05-15 10:41] LABS: ALT 25 U/L (16-63); AST 24 U/L (15-37); Albumin 3.9 g/dL (3.4-5.0); Alkaline Phosphatase 69 U/L (46-116); Anion Gap 9.6 mmol/L (3-11); BUN 15 mg/dL (7-18); Bilirubin, Total 0.82 mg/dL (0.2-1.0); CO2 27.4 mmol/L (21.0-32.0); CREATININE 0.9 mg/dL (0.70-1.30); Chloride 102 mmol/L (98-107); Estimated GFR 92.45 (mL/min/1.73m2); Glucose 114 mg/dL (74-106); Potassium 4.2 mmol/L (3.5-5.1); Sodium 139 mmol/L (136-145); Total Protein 7.9 g/dL (6.4-8.2)
== END 2024-05-17 23:59 | disposition home or self-care (01) ==
LOC: INF 01:41
PROVIDERS: Student in an Organized Health Care Education/Training Program; PCP Nurse Practitioner; Visit Provider Nurse Practitioner
DX: M06.4 Inflammatory polyarthropathy (principal); Z79.899 Other long term (current) drug therapy; E61.2 Magnesium deficiency
CPT/HCPCS: 36415; 80053; 96365; 96366; 83735; 85025; J3475

== ENCOUNTER 2024-06-14 02:40 | Outpatient (RCR) | payer MEDICARE, BC, SELFPAY ==
[2024-05-22] MEDS: MAGNESIUM SULFATE 4 GM/100 ML BAG IVINF (10:02)
[2024-05-22] MEDS: Normal Saline Flush 10 ML SYR IVP (10:03)
[2024-05-29 10:00] LABS: Magnesium 1.4 mg/dL (1.8-2.4)
[2024-05-29] MEDS: Normal Saline Flush 10 ML SYR IVP (10:17)
[2024-06-07 09:27] LABS: Magnesium 1.1 mg/dL (1.8-2.4)
[2024-06-07] MEDS: MAGNESIUM SULFATE 4 GM/100 ML BAG IVINF (09:33)
[2024-06-07] MEDS: Normal Saline Flush 10 ML SYR IVP (09:34)
[2024-06-14 09:25] LABS: Magnesium 1.3 mg/dL (1.8-2.4)
[2024-06-14 11:54] LABS: Vitamin D 25 Total 16.2 ng/mL (30-100)
== END 2024-06-17 23:59 | disposition home or self-care (01) ==
LOC: INF 02:40
PROVIDERS: PCP Nurse Practitioner; Visit Provider Nurse Practitioner
DX: E83.40 Disorders of magnesium metabolism, unspecified (principal); Z79.899 Other long term (current) drug therapy; Z45.2 Encounter for adjustment and management of vascular access device
CPT/HCPCS: 36415; 82306; 96365; 96366; 83735; J3475

== ENCOUNTER 2024-07-14 01:39 | Outpatient (RCR) | payer MEDICARE, BC, SELFPAY ==
[2024-06-21 09:53] LABS: Magnesium 1.2 mg/dL (1.8-2.4)
[2024-06-21] MEDS: Normal Saline Flush 10 ML SYR IVP (09:55)
[2024-06-21] MEDS: MAGNESIUM SULFATE 4 GM/100 ML BAG IVINF (09:55)
[2024-06-28 09:52] LABS: Magnesium 1.2 mg/dL (1.8-2.4)
[2024-06-28] MEDS: MAGNESIUM SULFATE 4 GM/100 ML BAG IVINF (09:57)
[2024-06-28] MEDS: Normal Saline Flush 10 ML SYR IVP (09:57)
[2024-07-07 09:29] LABS: Magnesium 1.1 mg/dL (1.8-2.4)
[2024-07-07] MEDS: MAGNESIUM SULFATE 4 GM/100 ML BAG IVINF (09:44)
[2024-07-07] MEDS: Normal Saline Flush 10 ML SYR IVP (09:45)
[2024-07-14 10:10] LABS: Magnesium 1.2 mg/dL (1.8-2.4); Vitamin D 25 Total 14.9 ng/mL (30-100)
[2024-07-14] MEDS: MAGNESIUM SULFATE 4 GM/100 ML BAG IVINF (10:32)
[2024-07-14] MEDS: Normal Saline Flush 10 ML SYR IVP (10:38)
== END 2024-07-17 23:59 | disposition home or self-care (01) ==
LOC: INF 01:39
PROVIDERS: PCP Nurse Practitioner; Visit Provider Nurse Practitioner
DX: E61.2 Magnesium deficiency
CPT/HCPCS: 36415; 82306; 96365; 96366; 83735; J3475

== ENCOUNTER → 2024-08-10 09:49 | Outpatient (BNVA) | payer MEDICARE, BC, SELFPAY | PROVIDERS: PCP Nurse Practitioner; Referring Provider Nurse Practitioner; Visit Provider Student in an Organized Health Care Education/Training Program | DX: M70.61 Trochanteric bursitis, right hip (principal) | CPT/HCPCS: 20610; 99213; J1010 ==

== ENCOUNTER 2024-08-11 00:54 | Outpatient (RCR) | payer MEDICARE, BC, SELFPAY ==
[2024-07-21] MEDS: Normal Saline Flush 10 ML SYR IVP (09:05)
[2024-07-21 09:40] LABS: Magnesium 1.5 mg/dL (1.8-2.4)
[2024-07-28 09:30] LABS: Magnesium 1.1 mg/dL (1.8-2.4)
[2024-07-28] MEDS: Normal Saline Flush 10 ML SYR IVP (09:39)
[2024-07-28] MEDS: MAGNESIUM SULFATE 4 GM/100 ML BAG IV_INF (09:39)
[2024-08-04 09:53] LABS: Magnesium 1.3 mg/dL (1.8-2.4); Vitamin D 25 Total 12.5 ng/mL (30-100)
[2024-08-04] MEDS: Normal Saline Flush 10 ML SYR IVP (10:02)
[2024-08-11 09:37] LABS: Magnesium 1.2 mg/dL (1.8-2.4)
[2024-08-11] MEDS: MAGNESIUM SULFATE 4 GM/100 ML BAG IV_INF (09:45)
== END 2024-08-17 23:59 | disposition home or self-care (01) ==
LOC: INF 00:54
PROVIDERS: PCP Nurse Practitioner; Visit Provider Nurse Practitioner
DX: E61.2 Magnesium deficiency (principal)
CPT/HCPCS: 36415; 82306; 96365; 96366; 83735; J3475

== ENCOUNTER 2024-09-15 01:08 | Outpatient (RCR) | payer MEDICARE, BC, SELFPAY ==
[2024-08-18] MEDS: Normal Saline Flush 10 ML SYR IVP ×2 (09:19→09:37)
[2024-08-18 09:23] LABS: Magnesium 1.2 mg/dL (1.8-2.4)
[2024-08-18] MEDS: MAGNESIUM SULFATE 4 GM/100 ML BAG IV_INF (09:37)
[2024-08-25] MEDS: Normal Saline Flush 10 ML SYR IVP (09:01)
[2024-08-25 09:42] LABS: Magnesium 1.2 mg/dL (1.8-2.4)
[2024-08-25] MEDS: MAGNESIUM SULFATE 4 GM/100 ML BAG IV_INF (09:51)
[2024-09-01 09:29] LABS: Magnesium 1.1 mg/dL (1.8-2.4)
[2024-09-01] MEDS: MAGNESIUM SULFATE 4 GM/100 ML BAG IV_INF (09:39)
[2024-09-01] MEDS: Normal Saline Flush 10 ML SYR IVP (09:39)
[2024-09-08] MEDS: Normal Saline Flush 10 ML SYR IVP (09:51)
[2024-09-08] MEDS: MAGNESIUM SULFATE 4 GM/100 ML BAG IV_INF (09:51)
[2024-09-15 09:36] LABS: Magnesium 0.9 mg/dL (1.8-2.4)
[2024-09-15] MEDS: Normal Saline Flush 10 ML SYR IVP (09:41)
[2024-09-15] MEDS: MAGNESIUM SULFATE 4 GM/100 ML BAG IV_INF (09:41)
== END 2024-09-16 23:59 | disposition home or self-care (01) ==
LOC: INF 01:08
PROVIDERS: PCP Nurse Practitioner; Visit Provider Nurse Practitioner
DX: E61.2 Magnesium deficiency
CPT/HCPCS: 36415; 96365; 96366; 83735; J3475

== ENCOUNTER 2024-10-02 01:07 | Outpatient (CLI) | payer MEDICARE, BC, SELFPAY ==
--- NOTE | 2024-10-02 08:00 | DI.DEXA_ITS ---
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 FINDINGS: Lateral Spine Image: Unremarkable. No compression deformities identified. Left hip: Total T-Score: -1.0. This compares to -0.5 on the prior examination. Total Z-Score: -0.4 T- and Z-scores: No evidence of osteoporosis. Lumbar Spine: Total T-Score: 1.6. This compares to 1.1 on the prior examination. Total Z-Score: 2.4 T- and Z-scores: Within normal limits. IMPRESSION: No evidence of osteoporosis.
== END 2024-10-02 01:27 ==
LOC: DI 01:07
PROVIDERS: PCP Nurse Practitioner; Visit Provider Nurse Practitioner
DX: Z79.52 Long term (current) use of systemic steroids (principal); Z87.81 Personal history of (healed) traumatic fracture; K50.90 Crohn's disease, unspecified, without complications; Z13.820 Encounter for screening for osteoporosis
CPT/HCPCS: 77080

== ENCOUNTER 2024-10-13 01:23 | Outpatient (RCR) | payer MEDICARE, BC, SELFPAY ==
[2024-09-22 09:19] LABS: Magnesium 1.1 mg/dL (1.8-2.4)
[2024-09-22] MEDS: Normal Saline Flush 10 ML SYR IVP (09:31)
[2024-09-22] MEDS: MAGNESIUM SULFATE 4 GM/100 ML BAG IV_INF (09:31)
[2024-09-29] MEDS: Normal Saline Flush 10 ML SYR IVP (08:58)
[2024-09-29 09:30] LABS: Abs Immature Grans 0.01 10^3/uL (0.0-0.06); Absolute Basophil Count 0.04 10^3/uL (0.0-0.2); Absolute Eosinophil Count 0.17 10^3/uL (0.0-0.7); Absolute Lymphocyte Count 1.24 10^3/uL (1.2-3.4); Absolute Monocyte Count 0.69 10^3/uL (0.1-0.8); Absolute Neutrophil Count 2.42 10^3/uL (1.2-6.7); Basophils % 0.9 %; Eosinophils % 3.7 %; HCT 39.3 % (40.0-50.0); HGB 13.9 g/dL (13.5-17.5); Immature Grans % 0.2 %; Lymphocytes % 27.1 %; MCH 36.5 pg (27.0-33.0); MCHC 35.4 % (32.0-36.0); MCV 103 fL (80-95); MPV 10.5 fL (8.0-11.0); Monocytes % 15.1 %; Platelet Count 265 10^3/uL (130-400); RBC 3.81 10^6/uL (4.36-5.78); RDW 13.2 % (11.8-14.1); WBC 4.57 10^3/uL (4.4-10.8)
[2024-09-29 10:01] LABS: ALT 24 U/L (16-63); AST 23 U/L (15-37); Albumin 3.8 g/dL (3.4-5.0); Alkaline Phosphatase 70 U/L (46-116); BUN 15 mg/dL (7-18); Bilirubin, Total 0.69 mg/dL (0.2-1.0); Calcium 8.8 mg/dL (8.5-10.1); Chloride 104 mmol/L (98-107); Estimated GFR 81.47 (mL/min/1.73m2); Glucose 93 mg/dL (74-106); Potassium 4.1 mmol/L (3.5-5.1); Sodium 139 mmol/L (136-145); Total Protein 7.6 g/dL (6.4-8.2)
[2024-09-29 10:07] LABS: Magnesium 1.3 mg/dL (1.8-2.4)
[2024-10-06] MEDS: Normal Saline Flush 10 ML SYR IVP (09:08)
[2024-10-06 09:22] LABS: Magnesium 0.9 mg/dL (1.8-2.4)
[2024-10-06] MEDS: MAGNESIUM SULFATE 4 GM/100 ML BAG IV_INF (09:29)
[2024-10-13] MEDS: Normal Saline Flush 10 ML SYR IVP (09:18)
[2024-10-13] MEDS: MAGNESIUM SULFATE 4 GM/100 ML BAG IV_INF (09:53)
== END 2024-10-17 23:59 | disposition home or self-care (01) ==
LOC: INF 01:23
PROVIDERS: Student in an Organized Health Care Education/Training Program; PCP Nurse Practitioner; Visit Provider Nurse Practitioner
DX: M19.90 Unspecified osteoarthritis, unspecified site; E61.2 Magnesium deficiency
CPT/HCPCS: 36415; 80053; 96365; 96366; 83735; 85025; J3475

== ENCOUNTER 2024-11-17 00:33 | Outpatient (RCR) | payer MEDICARE, BC, SELFPAY ==
[2024-10-20 09:22] LABS: Magnesium 1.4 mg/dL (1.8-2.4)
[2024-10-27] MEDS: MAGNESIUM SULFATE 4 GM/100 ML BAG IV_INF (09:38)
[2024-10-27] MEDS: Normal Saline Flush 10 ML SYR IVP ×2 (09:39→11:00)
[2024-11-03] MEDS: Normal Saline Flush 10 ML SYR IVP (09:02)
[2024-11-03 09:24] LABS: Magnesium 1.4 mg/dL (1.8-2.4)
[2024-11-10] MEDS: Normal Saline Flush 10 ML SYR IVP (09:08)
[2024-11-10 09:24] LABS: Magnesium 1.2 mg/dL (1.8-2.4)
[2024-11-10] MEDS: MAGNESIUM SULFATE 4 GM/100 ML BAG IV_INF (09:33)
[2024-11-10 09:52] LABS: Vitamin D 25 Total 18.4 ng/mL (30-100)
[2024-11-17 09:21] LABS: Magnesium 1.1 mg/dL (1.8-2.4)
[2024-11-17] MEDS: MAGNESIUM SULFATE 4 GM/100 ML BAG IV_INF (09:38)
[2024-11-17] MEDS: Normal Saline Flush 10 ML SYR IVP (11:33)
== END 2024-11-17 23:59 | disposition home or self-care (01) ==
LOC: INF 00:33
PROVIDERS: PCP Nurse Practitioner; Visit Provider Nurse Practitioner
DX: E61.2 Magnesium deficiency; E55.9 Vitamin D deficiency, unspecified
CPT/HCPCS: 36415; 82306; 96365; 96366; 83735; J3475

== ENCOUNTER 2024-12-15 01:46 | Outpatient (RCR) | payer MEDICARE, BC, SELFPAY ==
[2024-11-24] MEDS: Normal Saline Flush 10 ML SYR IVP ×2 (09:14→09:44)
[2024-11-24 09:40] LABS: Magnesium 1.2 mg/dL (1.8-2.4)
[2024-11-24] MEDS: MAGNESIUM SULFATE 4 GM/100 ML BAG IV_INF (09:40)
[2024-11-24 13:37] LABS: Vitamin D 25 Total 18.1 ng/mL (30-100)
[2024-11-24 18:45] LABS: Hepatitis B Surface Ag Negative (Negative)
[2024-11-24 19:15] LABS: Hep B Core Antibody Negative (Negative)
[2024-11-24 22:34] LABS: HBs Antibody, Quant <3.1 mIU/mL (See Note); Hepatitis B Surface Ab Negative (See Note)
[2024-11-27 14:51] LABS: HCV RNA Qualitative Undetected (Undetected)
[2024-11-27 15:09] LABS: TB Interpretation Negative (Negative); TB1 Ag minus Nil 0.02 IU/mL; TB2 Ag minus Nil 0.01 IU/mL
[2024-12-01] MEDS: Normal Saline Flush 10 ML SYR IVP (09:08)
[2024-12-01 09:18] LABS: Magnesium 1.1 mg/dL (1.8-2.4)
[2024-12-01] MEDS: MAGNESIUM SULFATE 4 GM/100 ML BAG IV_INF (09:22)
[2024-12-08] MEDS: Normal Saline Flush 10 ML SYR IVP (09:00)
[2024-12-08 09:21] LABS: Magnesium 1.3 mg/dL (1.8-2.4)
[2024-12-08 10:02] LABS: Vitamin D 25 Total 17.8 ng/mL (30-100)
[2024-12-15] MEDS: Normal Saline Flush 10 ML SYR IVP (09:31)
[2024-12-15 09:39] LABS: Magnesium 1.2 mg/dL (1.8-2.4)
[2024-12-15] MEDS: MAGNESIUM SULFATE 4 GM/100 ML BAG IV_INF (09:53)
== END 2024-12-15 23:59 | disposition home or self-care (01) ==
LOC: INF 01:46
PROVIDERS: PCP Nurse Practitioner; Visit Provider Nurse Practitioner
DX: E61.2 Magnesium deficiency (principal); K50.118 Crohn's disease of large intestine with other complication; E55.9 Vitamin D deficiency, unspecified
CPT/HCPCS: 36415; 82306; 86704; 86706; 87340; 87522; 96365; 96366; 83735; 86480; J3475

== ENCOUNTER 2025-01-12 03:32 | Outpatient (RCR) | payer MEDICARE, BC, SELFPAY ==
[2024-12-22 09:17] LABS: Magnesium 1.5 mg/dL
[2024-12-22] MEDS: Normal Saline Flush 5 ML SYR IVP (09:36)
[2024-12-22 10:12] LABS: Abs Immature Grans 0.02 10^3/uL (0.0-0.06); Absolute Basophil Count 0.06 10^3/uL (0.0-0.2); Absolute Eosinophil Count 0.28 10^3/uL (0.0-0.7); Absolute Lymphocyte Count 1.75 10^3/uL (1.2-3.4); Absolute Monocyte Count 0.87 10^3/uL (0.1-0.8); Absolute Neutrophil Count 3.53 10^3/uL (1.2-6.7); Basophils % 0.9 %; Eosinophils % 4.3 %; HCT 42.6 % (40.0-50.0); HGB 14.4 g/dL (13.5-17.5); Immature Grans % 0.3 %; Lymphocytes % 26.9 %; MCH 34.9 pg (27.0-33.0); MCHC 33.8 % (32.0-36.0); MCV 103 fL (80-95); MPV 10.6 fL (8.0-11.0); Monocytes % 13.4 %; Neutrophils % 54.2 %; Platelet Count 281 10^3/uL (130-400); RBC 4.13 10^6/uL (4.36-5.78); RDW 11.9 % (11.8-14.1); RDW-SD 45.5 fL; WBC 6.51 10^3/uL (4.4-10.8)
[2024-12-22 10:30] LABS: ALT 39 U/L (16-63); AST 35 U/L (15-37); Albumin 4.1 g/dL (3.4-5.0); Alkaline Phosphatase 82 U/L (46-116); Anion Gap 7.7 mmol/L (3-11); BUN 11 mg/dL (7-18); Bilirubin, Total 0.8 mg/dL (0.2-1.0); CO2 29.3 mmol/L (21.0-32.0); CREATININE 0.9 mg/dL (0.70-1.30); Calcium 9.3 mg/dL (8.5-10.1); Chloride 102 mmol/L (98-107); Estimated GFR 92.45 (mL/min/1.73m2); Glucose 99 mg/dL (74-106); Potassium 4.4 mmol/L (3.5-5.1); Sodium 139 mmol/L (136-145); Total Protein 7.8 g/dL (6.4-8.2)
[2024-12-29 10:03] LABS: Magnesium 1.4 mg/dL
[2024-12-29] MEDS: Normal Saline Flush 5 ML SYR IVP (12:03)
[2025-01-05 09:40] LABS: Magnesium 1.2 mg/dL
[2025-01-05] MEDS: MAGNESIUM SULFATE 4 GM/100 ML BAG IV_INF (09:45)
[2025-01-05] MEDS: Normal Saline Flush 5 ML SYR IVP (09:46)
[2025-01-12 09:07] LABS: Magnesium 1.1 mg/dL
[2025-01-12] MEDS: MAGNESIUM SULFATE 4 GM/100 ML BAG IV_INF (09:20)
[2025-01-12] MEDS: Normal Saline Flush 5 ML SYR IVP (09:21)
== END 2025-01-15 23:59 | disposition home or self-care (01) ==
LOC: INF 03:32
PROVIDERS: Student in an Organized Health Care Education/Training Program; PCP Nurse Practitioner; Visit Provider Nurse Practitioner
DX: E61.2 Magnesium deficiency (principal); M19.90 Unspecified osteoarthritis, unspecified site
CPT/HCPCS: 36415; 80053; 96365; 96366; 83735; 85025; J3475

== ENCOUNTER 2025-02-09 00:34 | Outpatient (RCR) | payer MEDICARE, BC, SELFPAY ==
[2025-01-19] MEDS: Normal Saline Flush 5 ML SYR IVP (09:12)
[2025-01-19 09:27] LABS: Magnesium 1.5 mg/dL
[2025-01-26] MEDS: Normal Saline Flush 5 ML SYR IVP (09:09)
[2025-01-26 09:49] LABS: Magnesium 1.3 mg/dL (1.8-2.4)
[2025-02-02 09:40] LABS: Magnesium 1.2 mg/dL (1.8-2.4)
[2025-02-02] MEDS: MAGNESIUM SULFATE 4 GM/100 ML BAG IV_INF (09:54)
[2025-02-02] MEDS: Normal Saline Flush 5 ML SYR IVP (11:07)
[2025-02-09 09:33] LABS: Magnesium 1.4 mg/dL (1.8-2.4)
[2025-02-09] MEDS: Normal Saline Flush 5 ML SYR IVP (09:51)
== END 2025-02-14 23:59 | disposition home or self-care (01) ==
LOC: INF 00:34
PROVIDERS: PCP Nurse Practitioner; Visit Provider Nurse Practitioner
DX: E61.2 Magnesium deficiency (principal)
CPT/HCPCS: 36415; 96365; 96366; 83735; J3475

== ENCOUNTER 2025-03-16 00:46 | Outpatient (RCR) | payer MEDICARE, BC, SELFPAY ==
[2025-02-16] MEDS: Normal Saline Flush 5 ML SYR IVP (09:02)
[2025-02-16 09:38] LABS: Magnesium 1.4 mg/dL (1.8-2.4)
[2025-02-23 09:14] LABS: Magnesium 1.4 mg/dL (1.8-2.4)
[2025-03-02] MEDS: Normal Saline Flush 10 ML SYR IVP (08:57)
[2025-03-02 09:06] LABS: Magnesium 1.6 mg/dL (1.8-2.4)
[2025-03-09 09:13] LABS: Magnesium 1.2 mg/dL (1.8-2.4)
[2025-03-09] MEDS: MAGNESIUM SULFATE 4 GM/100 ML BAG IV_INF (09:53)
[2025-03-09] MEDS: Normal Saline Flush 10 ML SYR IVP (09:53)
[2025-03-16 09:25] LABS: Magnesium 1.5 mg/dL (1.8-2.4)
[2025-03-16] MEDS: Normal Saline Flush 10 ML SYR IVP (09:42)
[2025-03-16 10:33] LABS: Vitamin D 25 Total 26 ng/mL (30-100)
== END 2025-03-17 23:59 | disposition home or self-care (01) ==
LOC: INF 00:46
PROVIDERS: Family Medicine; PCP Nurse Practitioner; Visit Provider Nurse Practitioner
DX: E61.2 Magnesium deficiency (principal); Z79.899 Other long term (current) drug therapy; E55.9 Vitamin D deficiency, unspecified
CPT/HCPCS: 36415; 82306; 96365; 96366; 83735; J3475

== ENCOUNTER 2025-04-06 00:57 | Outpatient (RCR) | payer MEDICARE, BC, SELFPAY ==
[2025-03-23] MEDS: Normal Saline Flush 10 ML SYR IVP (08:15)
[2025-03-23 09:09] LABS: Magnesium 1.4 mg/dL (1.8-2.4)
[2025-03-23 12:09] LABS: ALT 31 U/L (16-63); AST 40 U/L (15-37); Albumin 3.8 g/dL (3.4-5.0); Alkaline Phosphatase 77 U/L (46-116); Anion Gap 8.6 mmol/L (3-11); BUN 14 mg/dL (7-18); Bilirubin, Total 0.5 mg/dL (0.2-1.0); CO2 28.4 mmol/L (21.0-32.0); Calcium 8.9 mg/dL (8.5-10.1); Chloride 101 mmol/L (98-107); Estimated GFR 80.97 (mL/min/1.73m2); Glucose 121 mg/dL (74-106); Potassium 4.1 mmol/L (3.5-5.1); Sodium 138 mmol/L (136-145); Total Protein 7.8 g/dL (6.4-8.2)
[2025-03-30 09:22] LABS: Abs Immature Grans 0.01 10^3/uL (0.0-0.06); Absolute Basophil Count 0.04 10^3/uL (0.0-0.2); Absolute Eosinophil Count 0.17 10^3/uL (0.0-0.7); Absolute Lymphocyte Count 1.61 10^3/uL (1.2-3.4); Absolute Monocyte Count 0.72 10^3/uL (0.1-0.8); Absolute Neutrophil Count 3.13 10^3/uL (1.2-6.7); Basophils % 0.7 %; HCT 41.6 % (40.0-50.0); HGB 13.8 g/dL (13.5-17.5); Immature Grans % 0.2 %; Lymphocytes % 28.3 %; MCH 33.4 pg (27.0-33.0); MCHC 33.2 % (32.0-36.0); MCV 101 fL (80-95); MPV 10.1 fL (8.0-11.0); Monocytes % 12.7 %; Neutrophils % 55.1 %; Platelet Count 286 10^3/uL (130-400); RBC 4.13 10^6/uL (4.36-5.78); RDW 12.3 % (11.8-14.1); RDW-SD 46.3 fL; WBC 5.68 10^3/uL (4.4-10.8)
[2025-03-30 09:41] LABS: ALT 35 U/L (16-63); AST 29 U/L (15-37); Alkaline Phosphatase 75 U/L (46-116); BUN 21 mg/dL (7-18); Bilirubin, Total 0.8 mg/dL (0.2-1.0); CREATININE 0.9 mg/dL (0.70-1.30); Chloride 99 mmol/L (98-107); Estimated GFR 91.88 (mL/min/1.73m2); Glucose 124 mg/dL (74-106); Magnesium 1.3 mg/dL (1.8-2.4); Potassium 4.3 mmol/L (3.5-5.1); Sodium 137 mmol/L (136-145); Total Protein 8.2 g/dL (6.4-8.2)
[2025-04-06] MEDS: Normal Saline Flush 10 ML SYR IVP (08:55)
[2025-04-06 10:05] LABS: Magnesium 1.3 mg/dL (1.8-2.4)
== END 2025-04-16 23:59 | disposition home or self-care (01) ==
LOC: INF 00:57
PROVIDERS: Family Medicine; PCP Nurse Practitioner; Visit Provider Nurse Practitioner
DX: E61.2 Magnesium deficiency (principal)
CPT/HCPCS: 36415; 80053; 83735; 85025

== ENCOUNTER 2025-05-11 00:33 | Outpatient (RCR) | payer MEDICARE, BC, SELFPAY ==
[2025-04-19] MEDS: Normal Saline Flush 10 ML SYR IVP ×2 (08:46→09:15)
[2025-04-19 09:11] LABS: Magnesium 1.1 mg/dL (1.8-2.4)
[2025-04-19] MEDS: MAGNESIUM SULFATE 4 GM/100 ML BAG IV_INF (09:15)
[2025-04-27] MEDS: Normal Saline Flush 10 ML SYR IVP (08:45)
[2025-04-27 09:07] LABS: Magnesium 1.4 mg/dL (1.8-2.4)
[2025-05-11 09:06] LABS: Magnesium 1.2 mg/dL (1.8-2.4)
[2025-05-11] MEDS: MAGNESIUM SULFATE 4 GM/100 ML BAG IV_INF (09:23)
[2025-05-11] MEDS: Normal Saline Flush 10 ML SYR IVP (12:21)
== END 2025-05-17 23:59 | disposition home or self-care (01) ==
LOC: INF 00:33
PROVIDERS: Family Medicine; PCP Nurse Practitioner; Visit Provider Nurse Practitioner
DX: E83.42 Hypomagnesemia (principal)
CPT/HCPCS: 36415; 96365; 96366; 83735; J3475

== ENCOUNTER 2025-06-13 01:53 | Outpatient (RCR) | payer MEDICARE, BC, SELFPAY ==
[2025-06-06] MEDS: Normal Saline Flush 10 ML SYR IVP (08:59)
[2025-06-06 09:23] LABS: Magnesium 1.3 mg/dL (1.8-2.4)
[2025-06-13 07:23] LABS: Magnesium 1.2 mg/dL (1.8-2.4)
[2025-06-13] MEDS: Normal Saline Flush 10 ML SYR IVP (07:39)
[2025-06-13] MEDS: MAGNESIUM SULFATE 4 GM/100 ML BAG IV_INF (07:39)
[2025-06-13 10:41] LABS: Abs Immature Grans 0.01 10^3/uL (0.0-0.06); HCT 37.6 % (40.0-50.0); HGB 12.9 g/dL (13.5-17.5); Immature Grans % 0.2 %; MCH 34.6 pg (27.0-33.0); MCHC 34.3 % (32.0-36.0); MCV 101 fL (80-95); MPV 10.5 fL (8.0-11.0); Platelet Count 237 10^3/uL (130-400); RBC 3.73 10^6/uL (4.36-5.78); RDW 12.5 % (11.8-14.1); RDW-SD 46.5 fL; WBC 5.68 10^3/uL (4.4-10.8)
[2025-06-13 10:53] LABS: ALT 27 U/L (16-63); AST 27 U/L (15-37); Albumin 3.4 g/dL (3.4-5.0); Alkaline Phosphatase 54 U/L (46-116); Anion Gap 5.8 mmol/L (3-11); BUN 14 mg/dL (7-18); Bilirubin, Total 0.8 mg/dL (0.2-1.0); CO2 25.2 mmol/L (21.0-32.0); Calcium 8.2 mg/dL (8.5-10.1); Chloride 102 mmol/L (98-107); Estimated GFR 95.21 (mL/min/1.73m2); Glucose 102 mg/dL (74-106); Potassium 3.9 mmol/L (3.5-5.1); Sodium 133 mmol/L (136-145); Total Protein 6.8 g/dL (6.4-8.2)
== END 2025-06-17 23:59 | disposition home or self-care (01) ==
LOC: INF 01:53
PROVIDERS: Family Medicine; Student in an Organized Health Care Education/Training Program; PCP Nurse Practitioner; Visit Provider Nurse Practitioner
DX: E61.2 Magnesium deficiency (principal); Z79.899 Other long term (current) drug therapy
CPT/HCPCS: 36415; 80053; 96365; 96366; 83735; 85025; J3475

== ENCOUNTER 2025-07-10 03:18 | Outpatient (RCR) | payer MEDICARE, BC, SELFPAY ==
[2025-07-10 08:07] LABS: Magnesium 1.0 mg/dL (1.8-2.4)
[2025-07-10] MEDS: MAGNESIUM SULFATE 4 GM/100 ML BAG IV_INF (08:13)
[2025-07-10] MEDS: Normal Saline Flush 10 ML SYR IVP (08:13)
== END 2025-07-17 23:59 | disposition home or self-care (01) ==
LOC: INF 03:18
PROVIDERS: Family Medicine; PCP Nurse Practitioner; Visit Provider Nurse Practitioner
DX: E61.2 Magnesium deficiency (principal)
CPT/HCPCS: 36415; 96365; 96366; 83735; J3475

== ENCOUNTER 2025-08-09 00:14 | Outpatient (RCR) | payer MEDICARE, BC, SELFPAY ==
[2025-07-25] MEDS: Normal Saline Flush 10 ML SYR IVP (07:22)
[2025-07-25 07:30] LABS: Magnesium 1.3 mg/dL (1.8-2.4)
[2025-08-09 08:09] LABS: Magnesium 1.2 mg/dL (1.8-2.4)
[2025-08-09] MEDS: MAGNESIUM SULFATE 4 GM/100 ML BAG IV_INF (08:17)
[2025-08-09] MEDS: Normal Saline Flush 10 ML SYR IVP (08:17)
== END 2025-08-17 23:59 | disposition home or self-care (01) ==
LOC: INF 00:14
PROVIDERS: Family Medicine; PCP Nurse Practitioner; Visit Provider Nurse Practitioner
DX: E61.2 Magnesium deficiency (principal)
CPT/HCPCS: 36415; 96365; 96366; 83735; J3475

== ENCOUNTER 2025-09-14 02:02 | Outpatient (RCR) | payer MEDICARE, BC, SELFPAY ==
[2025-08-30 09:18] LABS: Abs Immature Grans 0.01 10^3/uL (0.0-0.06); HCT 38.6 % (40.0-50.0); HGB 13.2 g/dL (13.5-17.5); Immature Grans % 0.2 %; MCH 34.1 pg (27.0-33.0); MCHC 34.2 % (32.0-36.0); MCV 100 fL (80-95); MPV 10.0 fL (8.0-11.0); Platelet Count 278 10^3/uL (130-400); RBC 3.87 10^6/uL (4.36-5.78); RDW 12.0 % (11.8-14.1); RDW-SD 44.4 fL; WBC 5.90 10^3/uL (4.4-10.8)
[2025-08-30 09:35] LABS: Magnesium 1.0 mg/dL (1.6-2.6)
[2025-08-30 09:37] LABS: ALT 18 U/L (10-49); AST 30 U/L (<34); Albumin 4.4 g/dL (3.4-5.0); Alkaline Phosphatase 60 U/L (46-116); Anion Gap 7.4 mmol/L (3-11); BUN 13 mg/dL (9-23); Bilirubin, Total 0.90 mg/dL (0.2-1.2); CO2 27.6 mmol/L (20.0-31.0); Calcium 8.7 mg/dL (8.3-10.6); Chloride 104 mmol/L (98-107); Glucose 98 mg/dL (74-106); Potassium 4.2 mmol/L (3.5-5.1); Sodium 139 mmol/L (136-145); Total Protein 7.5 g/dL (5.7-8.2)
[2025-08-30] MEDS: Normal Saline Flush 10 ML SYR IVP (09:51)
[2025-08-30] MEDS: MAGNESIUM SULFATE 4 GM/100 ML BAG IV_INF (09:51)
[2025-09-14 09:12] LABS: Magnesium 1.1 mg/dL (1.6-2.6)
[2025-09-14] MEDS: Normal Saline Flush 10 ML SYR IVP (09:18)
[2025-09-14] MEDS: MAGNESIUM SULFATE 4 GM/100 ML BAG IV_INF (09:18)
== END 2025-09-16 23:59 | disposition home or self-care (01) ==
LOC: INF 02:02
PROVIDERS: Family Medicine; PCP Family Medicine; Visit Provider Nurse Practitioner
DX: E61.2 Magnesium deficiency (principal); Z79.899 Other long term (current) drug therapy
CPT/HCPCS: 36415; 80053; 96365; 96366; 83735; 85025; J3475

== ENCOUNTER 2025-10-09 01:06 | Outpatient (RCR) | payer MEDICARE, BC, SELFPAY ==
[2025-09-25 10:05] LABS: Magnesium 1.1 mg/dL (1.6-2.6)
[2025-09-25] MEDS: MAGNESIUM SULFATE 4 GM/100 ML BAG IV_INF (10:39)
[2025-09-25] MEDS: Normal Saline Flush 10 ML SYR IVP (12:44)
[2025-10-03 09:20] LABS: Magnesium 1.1 mg/dL (1.6-2.6)
[2025-10-03] MEDS: MAGNESIUM SULFATE 4 GM/100 ML BAG IV_INF (09:30)
[2025-10-03] MEDS: Normal Saline Flush 10 ML SYR IVP (09:30)
[2025-10-09 08:39] LABS: Magnesium 1.1 mg/dL (1.6-2.6)
[2025-10-09] MEDS: MAGNESIUM SULFATE 4 GM/100 ML BAG IV_INF (09:00)
[2025-10-09] MEDS: Normal Saline Flush 10 ML SYR IVP (09:00)
== END 2025-10-17 23:59 | disposition home or self-care (01) ==
LOC: INF 01:06
PROVIDERS: Family Medicine; PCP Family Medicine; Visit Provider Nurse Practitioner
DX: E83.40 Disorders of magnesium metabolism, unspecified (principal)
CPT/HCPCS: 36415; 96365; 96366; 83735; J3475